=== PATIENT | male | born 1965 | race Caucasian/White ===

== ENCOUNTER 2022-07-28 10:16 | Outpatient (REF) | payer OTHER, SELFPAY ==
--- NOTE | ~2022-07-28 | XR_ITS ---
EXAMINATION: XR WRIST, LEFT CLINICAL INFORMATION: Left wrist pain COMPARISON: None TECHNIQUE: Four views of the left wrist. FINDINGS: No fracture or dislocation. Alignment is maintained. Joint spaces are maintained. Small marginal osteophytes of the first carpometacarpal joint. The soft tissues appear unremarkable. XR/XR wrist LT min 3V IMPRESSION: Mild degenerative change at the first carpometacarpal joint.
== END 2022-07-28 10:17 | disposition home or self-care (01) ==
LOC: HO.HMGCX 10:16
PROVIDERS: Visit Provider Physician Assistant
DX: M25.532 Pain in left wrist (principal)
CPT/HCPCS: 73110

== ENCOUNTER → 2022-08-02 08:27 | Outpatient (BNVA) | payer OTHER, SELFPAY | PROVIDERS: PCP Internal Medicine; Visit Provider Physician Assistant | DX: S60.012A Contusion of left thumb without damage to nail, initial encounter (principal) | CPT/HCPCS: 29085 ==

== ENCOUNTER 2022-08-16 16:52 | Outpatient (REF) | payer OTHER, SELFPAY ==
--- NOTE | ~2022-08-16 | XR_ITS ---
EXAMINATION: XR HAND, LEFT CLINICAL INFORMATION: Left hand pain COMPARISON: 07/28/2022 TECHNIQUE: PA, lateral, and oblique views of the left hand. 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 Otherwise unremarkable. No fracture. No change. 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
== END 2022-08-16 16:53 | disposition home or self-care (01) ==
LOC: HO.HOSX 16:52
PROVIDERS: Visit Provider Physician Assistant
DX: S60.012D Contusion of left thumb without damage to nail, subsequent encounter (principal); M79.642 Pain in left hand; X58.XXXD Exposure to other specified factors, subsequent encounter
CPT/HCPCS: 73130

== ENCOUNTER 2022-10-10 06:09 | Outpatient (REF) | payer OTHER, SELFPAY ==
[2022-10-10 07:35] LABS: Hematocrit 50.7 % (42.0-52.0); Hemoglobin 16.8 g/dl (14.0-18.0); Mean Corpuscular HGB Conc 33.1 g/dl (31.0-36.0); Mean Corpuscular Hemoglobin 29.9 pg (27.0-33.0); Mean Corpuscular Volume 90.2 fL (80.0-98.0); Mean Platelet Volume 11.8 fL (9.4-12.4); Platelet Count 147 X10*3/uL (160-400); Red Blood Count 5.62 X10*6/uL (4.60-5.80); Red Cell Distribution Width 12.7 % (11.0-16.0)
[2022-10-10 08:24] LABS: Alanine Aminotransferase 29 U/L (0-40); Albumin Level 4.1 g/dL (3.5-5.0); Alkaline Phosphatase 92 U/L (39-117); Anion Gap 12 (12-20); Aspartate Amino Transferase 21 U/L (5-37); Blood Urea Nitrogen 16 mg/dL (9-16); Calcium 9.2 mg/dL (8.4-10.2); Carbon Dioxide 31 mmol/L (22-29); Chloride 107 mmol/L (96-108); Cholesterol 156 mg/dL; Estimated Glomerular Filt Rate > 60; Glucose Random 93 mg/dL (60-115); HDL Cholesterol 31 mg/dL; LDL Cholesterol Calculated 103 mg/dl; Potassium 4.5 mmol/L (3.3-5.1); Sodium 145 mmol/L (135-145); Total Protein 6.5 g/dL (6.5-8.0); Triglycerides 112 mg/dL
[2022-10-10 08:31] LABS: Atypical Lymph Absolute Manual 0.5 x10*3/uL; Atypical Lymphs Percent Manual 2 % (0-6); Band Neutrophils Percent 1 % (3-5); Eosinophils Absolute Manual 0.9 X10*3/uL (0.0-0.4); Eosinophils Percent Manual 4 % (0-4); Lymphocytes Absolute Manual 19.3 X10*3/uL (1.2-4.9); Lymphocytes Percent Manual 84 % (20-40); Monocytes Absolute Manual 0.2 X10*3/uL (0.1-1.2); Monocytes Percent Manual 1 % (2-11); Neutrophils Absolute Manual 2.1 X10*3/uL (2.0-8.3); Neutrophils Percent Manual 8 % (45-73)
[2022-10-10 08:32] LABS: RBC Morphology NORMAL
[2022-10-10 08:33] LABS: Platelet Estimate SLIGHTLY DECREASED (NORMAL); Platelet Morphology Comment NORMAL
[2022-10-10 08:36] LABS: Smudge Cells PRESENT
[2022-10-10 08:44] LABS: Folate 7.4 ng/mL (> or = 4.0); Free T4 (Free Thyroxine) 0.92 ng/dL (0.71-1.85); Prostate Specific Antigen Scr 2.53 ng/mL (<0.05-4.0); Thyroid Stimulating Hormone 1.28 uIU/mL (0.32-4.0); Vitamin B12 812 pg/mL (200-900)
[2022-10-10 09:14] LABS: Appearance Urine Clear; Color Urine Yellow; Glucose Urine UA Negative (Negative); Leukocyte Esterase Urine Negative (Negative); Nitrite Urine Negative (Negative); Specific Gravity - Urine 1.025 (1.005-1.025); Urine Blood Negative (Negative); Urine Ketones Negative (Negative); Urine Protein Negative (Neg-Trace)
[2022-10-10 09:19] LABS: Bacteria Urine None Seen (None Seen); Hyaline Casts Urine 0-2 /LPF (0-2); RBC Urine 0-2 /HPF (0-2); Squamous Epithelial Cell Urine 0-2 /HPF (0-2); WBC Urine 0-5 /HPF (0-5)
== END 2022-10-10 06:10 | disposition home or self-care (01) ==
LOC: HO.LAB 06:09
PROVIDERS: PCP Internal Medicine; Visit Provider Internal Medicine
DX: Z12.5 Encounter for screening for malignant neoplasm of prostate (principal); N20.0 Calculus of kidney; E78.00 Pure hypercholesterolemia, unspecified; R35.0 Frequency of micturition
CPT/HCPCS: 36415; 80053; 80061; 81001; 82607; 82746; 84153; 84439; 84443; 85007; 85025; 85027

== ENCOUNTER 2022-10-19 13:51 | Outpatient (REF) | payer OTHER, SELFPAY ==
--- NOTE | ~2022-10-19 | US_ITS ---
EXAMINATION: US SOFT TISSUE NECK CLINICAL INFORMATION: Localized swelling, mass and lump. COMPARISON: None available. TECHNIQUE: Limited ultrasound imaging through the right lateral neck was performed where patient feels a lump. FINDINGS: Limited ultrasound imaging through the right neck where patient feels a lump is a hypoechoic oval lesion measuring 1.12 x 0.54 x 0.93 cm and volume 0.3 cm. It has mild increased vascularity and most likely represents a lymph node. There are additional multiple small lymph nodes seen in the right neck level 2 and level 4. Limited imaging through the palpable lump of left neck reveals a hyperechoic lesion measuring 1.2 x 0.7 x 1.1 cm with some increased vascularity. It is most likely a lymph node. Also visualized are multiple small chain of lymph nodes in level 2 and level 4. US/US soft tiss head and/or neck IMPRESSION: 1. Palpable lump right neck is most likely lymph node with increased vascularity. The size of the lymph node is not indicative for biopsy at this time. There are also multiple lymph nodes seen in the right and the left neck level 2 through level 4. 2. If clinically indicated further evaluation of the neck soft tissues and nodes may be performed with CT soft tissue neck with intravenous contrast.
--- NOTE | ~2022-10-19 | US_ITS ---
EXAMINATION: US RETROPERITONEAL COMPLETE (RENAL) CLINICAL INFORMATION: Calculus of kidney. COMPARISON: None available. TECHNIQUE: Real-time imaging of the kidneys and bladder. FINDINGS: RIGHT KIDNEY: 11.5 x 7.0 x 5.9 cm (SAG x AP x TRV). The kidney is normal in size, contour, and echogenicity. Renal cortical thickness is normal. No hydronephrosis. 1.7 cm benign-appearing cyst. Lower pole 2 mm nonobstructing stone. LEFT KIDNEY: 12.2 x 6.9 x 5.8 cm (SAG x AP x TRV). The kidney is normal in size, contour, and echogenicity. Renal cortical thickness is normal. No hydronephrosis. Nonobstructing stones measuring up to 4 mm. Cysts with peripheral calcifications measuring up to 1.9 cm, almost certainly benign. BLADDER: Well distended and normal. Bilateral ureteral jets are demonstrated. Prevoid bladder volume is 209 mL. Postvoid bladder volume is 127 mL. ADDITIONAL FINDINGS: Prostate is markedly enlarged measuring approximately 38 mL. US/US retroperitoneal comp IMPRESSION: * Bilateral nonobstructing nephrolithiasis. * Left renal cysts with peripheral calcifications measuring up to 1.9 cm, almost certainly benign. * Prostatomegaly with large postvoid residual of 127 mL.
== END 2022-10-19 13:52 | disposition home or self-care (01) ==
LOC: HO.US 13:51
PROVIDERS: PCP Internal Medicine; Visit Provider Internal Medicine
DX: N20.0 Calculus of kidney (principal); R22.1 Localized swelling, mass and lump, neck; R35.0 Frequency of micturition
CPT/HCPCS: 76536; 76770

== ENCOUNTER → 2022-11-20 09:38 | Outpatient (BNVA) | payer OTHER, SELFPAY | PROVIDERS: PCP Internal Medicine; Visit Provider Nurse Practitioner Family ==

== ENCOUNTER → 2022-11-30 10:11 | Outpatient (BNV) | payer BC, OTHER, SELFPAY | PROVIDERS: PCP Internal Medicine; Visit Provider Internal Medicine Medical Oncology | DX: D72.829 Elevated white blood cell count, unspecified (principal) | CPT/HCPCS: 99204; 99213; 99214 ==

== ENCOUNTER → 2022-12-18 09:06 | Outpatient (BNVA) | payer OTHER, SELFPAY | PROVIDERS: PCP Internal Medicine; Visit Provider Urology ==

== ENCOUNTER 2023-01-29 13:35 | Outpatient (REF) | payer OTHER, SELFPAY ==
--- NOTE | ~2023-01-29 | CT_ITS ---
EXAMINATION: CT CHEST WITH CONTRAST CLINICAL INFORMATION: Chronic lymphocytic leukemia COMPARISON: None available. TECHNIQUE: Multidetector volumetric CT imaging of the chest was obtained after the administration of 80 mL of Omnipaque 350 intravenous contrast without immediate adverse reactions. Axial MIP volume rendering provided. Sagittal and coronal reformatted images were obtained. This CT examination was performed using dose optimization techniques as appropriate, variously including the following: *Automated exposure control *Adjustment of mA and/or kV according to patient size (this includes techniques or standardized protocols for targeted exams where dose is matched to indication/reason for exam; i.e. extremities or head) *Use of iterative reconstruction technique DLP: 1044 mGy-cm for both the CT chest and CT neck exams reported separately FINDINGS: LUNGS: Few scattered calcified pulmonary granulomas. Few scattered noncalcified solid pulmonary micronodules for example in the right upper lobe, 5:249. Few small juxta fissural solid nodules for example along the left major fissure, 5:255 measuring up to 3 mm which could potentially reflect intrapulmonary lymph nodes morphologically however given history of malignancy warrants continued attention on follow-up imaging. PLEURA: No pleural effusion. MEDIASTINUM: Question of a possible right lower lobe subsegmental pulmonary embolism which could be confirmed with a dedicated CT PE protocol. No cardiomegaly. No elevation of the RV/LV ratio. Aorta and pulmonary artery are normal in caliber. Multiple subcentimeter short axis mediastinal nodes measuring up to 0.8 cm short axis in a subcarinal node. No hilar lymphadenopathy. CORONARY ARTERY CALCIFICATION: Coronary artery calcification is present. CHEST WALL/AXILLA: Bilateral axillary and retropectoral lymphadenopathy measuring up to 1.4 cm short axis in a left retropectoral. UPPER ABDOMEN: Mildly enlarged sid hepatic nodes measuring up to 1.2 cm short axis. Few subcentimeter short axis cysts gastrohepatic nodes measuring up to 0.6 cm, not pathologically enlarged. OSSEOUS STRUCTURES: Unremarkable. CT/CT chest w IV con IMPRESSION: * Question of a possible right lower lobe subsegmental pulmonary embolism. Recommend confirmation with a dedicated CT PE protocol. No elevation of the RV/LV ratio to suggest right heart strain. * Bilateral axillary and retropectoral lymphadenopathy and sid hepatic lymphadenopathy measuring up to 1.4 cm short axis in a left retropectoral node. * Few indeterminate solid pulmonary nodules and micronodules measuring 3 mm or less. Given history of malignancy recommend continued imaging surveillance per clinical oncologic recommendations. These critical results were discussed with Francie Dee MD by telephone at 02/01/2023 2:02 PM and it was ascertained that the content and urgency of the report was understood at the time of direct communication.
--- NOTE | ~2023-01-29 | CT_ITS ---
EXAMINATION: CT SOFT TISSUE NECK WITH CONTRAST CLINICAL INFORMATION: Bilateral cervical lymphadenopathy. History of chronic lymphocytic leukemia. COMPARISON: Neck ultrasound from 10/19/2022. TECHNIQUE: Multidetector helical imaging was performed in the axial plane following the administration of 80 mL of Omnipaque 350 intravenous contrast. Multiple axial reformats and coronal/sagittal reconstructions were created the technologist workstation for review. This CT examination was performed using dose optimization techniques as appropriate, variously including the following: *Automated exposure control. *Adjustment of mA and/or kV according to patient size (this includes techniques or standardized protocols for targeted exams where dose is matched to indication/reason for exam; i.e. extremities or head). *Use of iterative reconstruction technique. DLP: 415 mGy-cm FINDINGS: Moderate, bulky, rounded lymphadenopathy throughout the bilateral cervical chains, measuring up to 2.3 cm in levels Ib, 2.5 cm in levels IIa, 1.7 cm in levels III, 1.5 cm in levels IV, and 1.6 cm in levels V. Partially visualized axillary lymphadenopathy measures up to 1 cm in short axis (better characterized on concurrent CT of the chest. No significant cutaneous thickening or subcutaneous inflammation. No discrete fluid collection within the deep tissues of the neck. The premaxillary, retromaxillary, pterygopalatine fossa, orbital apical, parapharyngeal, and prelaryngeal adipose tissue is maintained. Normal appearance of the parotid, submandibular, and thyroid glands. Normal mucosal contours of the pharynx and larynx without abnormal enhancement. Normal appearance of the hyoid bone, thyroid cartilage, or cartilaginous trachea. The airways remains widely patent. No radiopaque foreign bodies. The atlantooccipital and atlantoaxial articulations remain well aligned. There is anatomic alignment of the vertebral bodies and posterior elements. No evidence of acute fracture or subluxation of the cervical spine. The vertebral body heights are maintained. Mild multilevel degenerative spondyloarthropathy of the cervical spine. No evidence of epidural collection. There is no prevertebral soft tissue swelling. Retropharyngeal course of the left carotid artery. Otherwise, normal opacification of the cervical arterial and venous structures. The visualized portion of the skull base is without significant abnormalities. Mild to moderate polypoid mucosal thickening of the paranasal sinuses. Multifocal odontogenic enamel erosions. Periapical lucencies associated with the maxillary canines bilaterally. The mastoid air cells and middle ear cavities are clear. No demonstrated significant periapical odontogenic disease. CT Upper Chest: The visualized lung apices and upper mediastinum are within normal limits. CT/CT soft tissue neck w IV con IMPRESSION: 1. Moderate, bulky, rounded lymphadenopathy throughout the bilateral cervical chains. Partially visualized axillary lymphadenopathy (better characterized on concurrent CT of the chest). Findings are in keeping with a reported underlying lymphoproliferative disorder. 2. No demonstrated primary lesion or collection within the soft tissues of the neck. 3. Moderate multifocal odontogenic disease.
[2023-01-29] MEDS: iohexoL 350 MG/ML 100 ML INFUS..BTL 80 ML IV (14:21)
== END 2023-01-29 13:36 | disposition home or self-care (01) ==
LOC: HO.CT 13:35
PROVIDERS: PCP Internal Medicine; Visit Provider Internal Medicine Medical Oncology
DX: C91.10 Chronic lymphocytic leukemia of B-cell type not having achieved remission (principal)
CPT/HCPCS: 70491; 71260; Q9967

== ENCOUNTER 2023-01-31 12:16 | Outpatient (AMB) | payer OTHER, SELFPAY ==
[2023-01-31 12:18] VITALS: BP 132/70; PULSE 58; O2SAT 99; BMI 31.7
--- NOTE | 2023-01-31 12:18 | MHC.PC.OV ---
Vital Signs 01/31/23 12:18 Height 6 ft 3 in Weight 254 lb BMI 31.7 BP 132/70 Blood Pressure Location Lt brachial Position Sitting Pulse 58 Pulse Source Pulse Oximeter Pulse Oximetry (%) 99 Oxygen Delivery Method Room Air Intake Visit Reasons: Annual Exam Allergies No Known Allergies Allergy (Verified 01/31/23 12:19) Medication List - Last Reconciled 01/31/23 by Mylene Mari MD bisacodyl (Dulcolax (bisacodyl)) 10 mg (2 x 5 mg) PO ONCE 1 day blood pressure monitor (Blood Pressure Kit) As directed polyethylene glycol 3350 (Miralax) 238 grams PO ONCE tamsulosin 0.4 mg PO BEDTIME Tobacco use date assessed: 11/20/22 Dental Screening Dental Screen Date: 01/31/23 Did you have a dental visit in the last 12 months?: Yes Did you have a dental problem in the last 6 months where you did not have access to dental care?: No Was dental information given to patient?: Patient has dentist HPI Annual Exam HPI Details 57 year-old obese male with nephrolithiasis BPH coming in for physical exam last seen in October 2021 having elevated blood pressure left side of the neck mass. Patient was noted to have leukocytosis and was referred to hematology oncology diagnosis consistent with CLL CT neck requested. Patient is also being followed up by Urology taking tamsulosin [facility] Medical History (Updated 01/31/23 @ 12:41 by Mylene Mari MD) BPH (benign prostatic hyperplasia) Frequency of micturition Kidney stones Leucocytosis Mass of left side of neck Obesity (BMI 30-39.9) Peripheral vascular disease Renal calculus, right Right shoulder pain Thrombocytopenia Surgical History History of lumbar surgery Hx of tonsillectomy Family History Mother Dementia Father Parkinson disease Prostate cancer Brother No problems noted. Brother Rectal cancer Sister No problems noted. Daughter No problems noted. Son No problems noted. Social History (Updated 01/31/23 @ 12:47 by Mylene Mari MD) Household Members: Spouse Housing: House Alcohol intake: current Patient Tobacco Use Status: Never used Tobacco e-Cigarette/Vaping Use: Never Used Second Hand Smoke Exposure: No service: No Current occupational status: employed Current occupation: auto, referee, rock climbing, rt hand Cognitive needs: No Hearing needs: No Vision needs: Yes Questionnaire PHQ-9 Over the last 2 weeks, how often have you been bothered by any of the following problems? 1. Little interest or pleasure in doing things: not at all 2. Feeling down, depressed, or hopeless: not at all 3. Trouble falling or staying asleep, or sleeping too much: not at all 4. Feeling tired or having little energy: not at all 5. Poor appetite or overeating: not at all 6. Feeling bad about yourself - or that you are a failure or have let yourself or your family down: not at all 7. Trouble concentrating on things, such as reading the newspaper or watching television: not at all 8. Moving or speaking so slowly that other people could have noticed. Or the opposite - being so fidgety or restless that you have been moving around a lot more than usual: not at all 9. Thoughts that you would be better off or of hurting yourself in some way: not at all Total score: 0 Depression Screening Interpretation: Negative Source: Developed by Drs. Jacobo Welch, Tiana Mojica, Robin Yang and colleagues, with an educational traci from [employer]. Thrive Questionnaire Date Thrive assessed: 10/09/22 AUDIT C Alcohol Use Questionnaire (AUDIT-C) 1. How often do you have a drink containing alcohol?: Monthly or less 2. How many drinks containing alcohol do you have on a typical day when you are drinking?: 1 or 2 3. How often do you have six or more drinks on one occasion?: Never Total Score: 1 HELENE-7 AMB Questionnaire HELENE-7 Date HELENE - 7 assessed: 10/09/22 Source: Developed by Drs. Jacobo Welch, Tiana Mojica, Robin Yang and colleagues, with an educational traci from [employer]. Review of Systems Const Denies poor appetite and Denies weakness Eyes Denies no additional complaints ENT Reports Normal hearing present, Denies dizziness, Denies nasal congestion, Denies tinnitus and Denies sore throat Card Denies chest pain, Denies syncope, Denies rapid heart rate and Denies dyspnea Resp Denies cough and Denies dyspnea GI Denies change in stool character, Reports constipation, Denies diarrhea, Denies nausea and Denies vomiting Denies dysuria and Denies urinary frequency Neuro Reports Normal hearing present, Denies confusion, Denies dizziness, Denies syncope and Denies weakness Psych Denies confusion Physical exam (Primary Care) Vital Signs: Last Vital Signs Pulse 58 01/31/23 12:18 BP 132/70 01/31/23 12:18 Pulse Ox 99 01/31/23 12:18 Oxygen Delivery Method Room Air 01/31/23 12:18 BMI result Body Mass Index 31.7 Tobacco/Smoking Status: Tobacco use Status Tobacco use date assessed 11/20/22 01/31/23 12:19 Patient Tobacco Use Status Never used Tobacco 01/31/23 12:19 e-Cigarette/Vaping Use Never Used 01/31/23 12:19 PHQ-9: PHQ-9 Score PHQ-9: Total score 0 01/31/23 12:19 Depression Screening Interpretation: Negative Thrive Assessment: Date of Thrive Assessment Date Thrive assessed 10/09/22 01/31/23 12:19 Const General: No confusion Orientation/consciousness: No confusion HENMT Other: anterior R side of neck mass- LN enlargement. L eye stye Head: Yes normocephalic Ears: external ears normal and TM's normal bilaterally Face and sinus: Yes normal facial exam Mouth: moist mucous membranes Throat: Yes tonsils normal Eyes Conjunctivae: conjunctivae normal Pupils: Equal, round and reactive pupils present and Pupil accommodation reflex normal Direct Ophthalmoscopy: normal light reflex Neck Neck: No lymphadenopathy Thyroid: Thyroid normal Chest Chest palpation & inspection: normal inspection of the chest Resp Effort & Inspection: normal respiratory effort and no audible wheezes Auscultation: clear to auscultation bilaterally, no crackles, no wheezes and lung sounds not diminished Cardio Rate: regular rate Rhythm: regular rhythm Peripheral pulses: radial pulses present and dorsalis pedis present GI Other: colon test end of the month Palpation (GI): no masses Auscultation: normal bowel sounds and normoactive bowel sounds Rectal Exam - Male: Yes deferred Male General Exam: Yes normal external exam Skin General skin exam: no rashes or lesions noted Rashes: no rashes Neuro General: No confusion Cranial nerves: Yes Equal, round and reactive pupils present and Yes Normal hearing present Cognition (Neuro): normal cognition Gait exam (Neuro): Normal gait present Motor exam (neuro): 5/5 motor strength present throughout Deep tendon reflexes (DTR's): Right brachioradialis reflex intensity grade: 2+, Left brachioradialis reflex intensity grade: 2+, Right patellar reflex intensity grade: 2+ and Left patellar reflex intensity grade: 2+ Extrem General: No edema Assessment and Plan Assessment & Plan (1) Annual physical exam: Code(s): Z00.00 - Encounter for general adult medical examination without abnormal findings (2) CLL (chronic lymphocytic leukemia): Comment: December 2022 Code(s): C91.10 - Chronic lymphocytic leukemia of B-cell type not having achieved remission Plan: Patient is followed up by hematology oncology and being worked up for staging. bone marrow plan (3) BPH loc w urin obs/LUTS: Code(s): N40.1 - Benign prostatic hyperplasia with lower urinary tract symptoms Plan: Patient is followed up by Urology and is on tamsulosin (4) Bilateral renal stones: Comment: Bilateral nonobstructing nephrolithiasis. * Left renal cysts with peripheral calcifications measuring up to 1.9 cm, almost certainly benign. * Prostatomegaly with large postvoid residual of 127 mL. October 2022 Code(s): N20.0 - Calculus of kidney Plan: Keep well hydrated (5) Family history of rectal cancer: Code(s): Z80.0 - Family history of malignant neoplasm of digestive organs Plan: Discussion about colonoscopy. scheduled end of the month (6) Blood pressure elevated without history of HTN: Code(s): R03.0 - Elevated blood-pressure reading, without diagnosis of hypertension Plan: Blood pressure is better (7) Obesity (BMI 30.0-34.9): Code(s): E66.9 - Obesity, unspecified Plan: Diet and exercise Medications: Changed From tamsulosin 0.4 mg PO BEDTIME 30 caps 0RF N40.1 - Benign prostatic hyperplasia with lower urinary tract symptoms To tamsulosin 0.4 mg PO BEDTIME 90 days 90 caps 3RF N40.1 - Benign prostatic hyperplasia with lower urinary tract symptoms Coding Level of Care Code Est Pt Prev Care 40-64y([id number]) Diagnoses Annual physical exam Z00.00 CLL (chronic lymphocytic leukemia) C91.10 BPH loc w urin obs/LUTS N40.1 Bilateral renal stones N20.0 Family history of rectal cancer Z80.0 Blood pressure elevated without history of HTN R03.0 Obesity (BMI 30.0-34.9) E66.9
== END 2023-01-31 13:35 | disposition home or self-care (01) ==
PROVIDERS: PCP Internal Medicine; Visit Provider Internal Medicine
DX: Z00.00 Encounter for general adult medical examination without abnormal findings (principal); C91.10 Chronic lymphocytic leukemia of B-cell type not having achieved remission; Z80.0 Family history of malignant neoplasm of digestive organs; N40.1 Benign prostatic hyperplasia with lower urinary tract symptoms; N20.0 Calculus of kidney; R03.0 Elevated blood-pressure reading, without diagnosis of hypertension; E66.9 Obesity, unspecified
CPT/HCPCS: 99396

== ENCOUNTER 2023-02-01 14:35 | Emergency (ER) | payer OTHER, SELFPAY ==
--- NOTE | ~2023-02-01 | CT_ITS ---
EXAMINATION: CT ANGIOGRAM OF THE CHEST WITH AND WITHOUT CONTRAST (CT PULMONARY ANGIOGRAM FOR PE) CLINICAL INFORMATION: Reason for Exam + PE on CT chest without contrast Sunday COMPARISON: CT chest with IV contrast 01/29/2023 TECHNIQUE: Prior to contrast administration, noncontrast localization images were obtained. Subsequently, multidetector volumetric imaging was performed from the thoracic inlet to below the diaphragms following the administration of 80 mL Omnipaque 350 intravenous contrast. No contrast reaction reported Sagittal, coronal, and MIP oblique sagittal reformatted images were obtained on the CT workstation, uploaded to PACS, and reviewed. This CT examination was performed using dose optimization techniques as appropriate, variously including the following: *Automated exposure control *Adjustment of mA and/or kV according to patient size (this includes techniques or standardized protocols for targeted exams where dose is matched to indication/reason for exam; i.e. extremities or head) *Use of iterative reconstruction technique Total exam dose-length product 367 mGy-cm FINDINGS: QUALITY OF STUDY/CONTRAST BOLUS: Satisfactory. PULMONARY ARTERIES: There is no evidence of pulmonary emboli. Especially there is no filling defects seen in the right lower lobe pulmonary artery branch. THORACIC AORTA: No aneurysm. LUNG: There is no focal consolidation or groundglass density. There are small noncalcified pulmonary micronodules in the right upper lobe and along the left major fissure. These are stable. No new nodules are seen. PLEURA: No pleural effusion or pneumothorax. MEDIASTINUM: Normal heart size. No pericardial effusion. No hilar or mediastinal lymphadenopathy. No evidence of septal bowing or right heart strain. CORONARY ARTERY CALCIFICATION: None visualized on this study. CHEST WALL/AXILLA: There are multiple bilateral abnormal axillary and retropectoral lymph nodes. Largest right axillary lymph node measures 1.3 cm on axial image 14/5 and left axillary lymph node measures 1.9 cm on axial image 16/5. OSSEOUS STRUCTURES: No aggressive lytic or sclerotic process seen. UPPER ABDOMEN: Visualized liver, spleen, pancreas and bilateral adrenal glands unremarkable. No reflux of contrast into the hepatic veins to suggest elevated right heart pressures. CT/CT angio chest PE protocol IMPRESSION: No evidence of PE. Stable bilateral small micronodules. Abnormal bilateral axillary lymphadenopathy concordant with history of chronic lymphocytic leukemia. VTE: negative
--- NOTE | 2023-02-01 14:37 | ED_ITS ---
HPI - General Adult General Chief complaint: General Medical Stated complaint: lab recheck Time Seen by Provider: 02/01/23 16:28 Source: patient Mode of arrival: ambulatory Limitations: no limitations History of Present Illness HPI narrative: PE the history of chronic lymphocytic leukemia had chest CT on 01/29 for CLL was read as possible PE oncologist received a report today and send the patient for CTA chest to rule out PE patient denied any shortness of breath no chest pain feels back to normal. Patient denies any history of PE in the past or high risk for DVT Related Data Previous Rx's Medication Instructions Recorded blood pressure monitor (Blood #1 ea 10/09/22 Pressure Kit) bisacodyl 5 mg tablet,delayed 10 mg PO ONCE 1 day #2 tabs 11/20/22 release (Dulcolax (bisacodyl)) polyethylene glycol 3350 17 238 g PO ONCE #238 grams 11/20/22 gram/dose oral powder (Miralax) tamsulosin 0.4 mg capsule 0.4 mg PO BEDTIME 90 days #90 caps 01/31/23 Allergies Allergy/AdvReac Type Severity Reaction Status Date / Time No Known Allergies Allergy Verified 02/01/23 14:38 Review of Systems Review of Systems: Yes all other systems are reviewed and are negative PMFSH Past Medical History Medical History BPH (benign prostatic hyperplasia) Frequency of micturition Kidney stones Leucocytosis Mass of left side of neck Obesity (BMI 30-39.9) Peripheral vascular disease Renal calculus, right Right shoulder pain Thrombocytopenia Surgical History History of lumbar surgery Hx of tonsillectomy Family History Family History Mother Dementia Father Parkinson disease Prostate cancer Brother No problems noted. Brother Rectal cancer Sister No problems noted. Daughter No problems noted. Son No problems noted. Social History Social History Household Members: Spouse Housing: House Alcohol intake: never Patient Tobacco Use Status: Never used Tobacco e-Cigarette/Vaping Use: Never Used Second Hand Smoke Exposure: No service: No Current occupational status: employed Current occupation: auto, referee, rock climbing, rt hand Cognitive needs: No Hearing needs: No Vision needs: Yes Physical Exam ED Vital Signs: Vital Signs - 24 hr 02/01/23 14:38 02/01/23 19:12 Temperature 98 F 98.3 F Pulse Rate 83 63 Respiratory Rate 19 17 Blood Pressure 156/73 H 126/73 Pulse Oximetry 98 94 Oxygen Delivery Method Room Air Room Air BMI result Body Mass Index 31.6 Appearance: Alert. Oriented X3. No acute distress. Eyes: PERRLA, No Nystagmus ENT: Pharynx normal. Oral Mucosa moist Neck: Normal inspection. Neck supple. CVS: Normal heart rate and rhythm. Pulses normal. Respiratory: No respiratory distress. Equal air entry bilateral, no wh eezing/rales/rhonchi Abdomen: Soft and nontender. Bowel sounds are present, no mass palpable, no CVA tenderness Skin: Skin warm and dry. Normal skin color. Normal skin turgor. Extremities: No lower extremity edema. No calf tenderness Neuro: Oriented X 3. No motor deficit. No sensory deficit.No cerebellar signs , cranial nerves II-XII intact Course Course Course Narrative: This is a rapid medical exam: Additional HPI, ROS, PE not included below will be deferred to primary provider. Patient referred to the ED by Dr. Dee. Had a CT chest on Sunday for evaluation of enlarged lymph nodes, was being worked up for CLL. Provider received CT read today which showed + PE, but CTA chest was recommended. He denies any chest pain or shortness of breath, calf pain or swelling. Plan: labs, CTA chest Medications Administered Discontinued Medications Generic Name Dose Route Start Last Admin Trade Name Bhavesh PRN Reason Stop Dose Admin Iohexol 100 ml 02/01/23 16:52 02/01/23 16:53 Iohexol 350 Mg/Ml 100 Ml Infus..Btl IV 02/01/23 16:53 65 ml ONCE ONE Administration Medical Decision Making Medical Decision Making [facility] Narrative: Patient with CLL with stable labs and vitals CT chest negative for PE discharge patient advised to follow with oncology, patient is symptomatic as such Lab Data [facility] Lab Attestation statement: I reviewed the patient's lab results. 02/01/23 15:30 02/01/23 15:30 Labs: Lab Results 02/01/23 02/01/23 02/01/23 Range/Units 15:30 15:30 15:30 WBC 28.1 H (4.8-10.8) X10*3/uL RBC 5.40 (4.60-5.80) X10*6/uL Hgb 15.8 (14.0-18.0) g/dl Hct 47.8 (42.0-52.0) % MCV 88.5 (80.0-98.0) fL MCH 29.3 (27.0-33.0) pg MCHC 33.1 (31.0-36.0) g/dl RDW 12.7 (11.0-16.0) % Plt Count 120 L (160-400) X10*3/uL MPV 11.7 (9.4-12.4) fL Immature Gran % (Auto) Cancelled Neut % (Auto) Cancelled Lymph % (Auto) Cancelled [facility] % (Auto) Cancelled Eos % (Auto) Cancelled Baso % (Auto) Cancelled Lymph # (Auto) Cancelled [facility] # (Auto) Cancelled Eos # (Auto) Cancelled Baso # (Auto) Cancelled Abs Immat Gran (auto) Cancelled Absolute Neuts (auto) Cancelled Absolute Nucleated RBC 0.020 H (0.0-0.012) X10*3/uL Nucleated RBC % (auto) 0.1 (0.0-0.2) /100WBC Neutrophils % (Manual) 22 L (45-73) % Band Neutrophils % 2 L (3-5) % Lymphocytes % (Manual) 73 H (20-40) % Monocytes % (Manual) 3 (2-11) % Abs Neuts (Manual) 6.7 (2.0-8.3) X10*3/uL Lymphocytes # (Manual) 20.5 H (1.2-4.9) X10*3/uL Monocytes # (Manual) 0.8 (0.1-1.2) X10*3/uL Platelet Estimate SLIGHTLY DECREASED (NORMAL) Plt Morphology Comment NORMAL RBC Morphology NORMAL Smear Tech's Comments VERIFIED PT 11.4 (11.1-13.3) SEC INR 0.9 (0.9-1.1) APTT 32.1 (26.0-36.4) SEC Sodium 144 (135-145) mmol/L Potassium 4.5 (3.3-5.1) mmol/L Chloride 111 H (96-108) mmol/L Carbon Dioxide 23 (22-29) mmol/L Anion Gap 15 (12-20) BUN 17 H (9-16) mg/dL Creatinine 0.89 (0.5-1.4) mg/dL Estim Creat Clear Calc 123.6 Estimated GFR > 60 Random Glucose 97 (60-115) mg/dL Calcium 9.7 D (8.4-10.2) mg/dL Total Bilirubin 0.8 (0.0-1.0) mg/dL AST 23 (5-37) U/L ALT 26 (0-40) U/L Alkaline Phosphatase 82 (39-117) U/L Total Protein 6.9 (6.5-8.0) g/dL Albumin 4.2 (3.5-5.0) g/dL Radiology Impression Discussion of test interpretation with radiology: I have reviewed the radi ologist's reading. Radiologist Impression: RDER #: [id number] CT/CT angio chest PE protocol IMPRESSION: No evidence of PE. ? Stable bilateral small micronodules. ? Abnormal bilateral axillary lymphadenopathy concordant with history of chronic lymphocytic? leukemia. ? VTE: negative Discharge Plan Discharge Clinical Impression: CLL (chronic lymphocytic leukemia) Patient Disposition: Home, Self-Care Instructions: Chronic Lymphocytic Leukemia (DC) Additional Instructions: your CT scan is negative for blood clots follow-up with your oncologist Prescriptions: No Action (DME) blood pressure monitor [Blood Pressure Kit] Kit See Rx Instructions .ROUTE .MEDSUPPLY Qty: 1 0RF Rx Instructions: As directed tamsulosin 0.4 mg capsule 0.4 mg PO BEDTIME 90 Days Qty: 90 3RF bisacodyl [Dulcolax (bisacodyl)] 5 mg tablet,delayed release (DR/EC) 10 mg PO ONCE 1 Days Qty: 2 0RF Rx Instructions: take 2 tabs at noon the day before your colonoscopy polyethylene glycol 3350 [Miralax] 17 gram/dose powder 238 g PO ONCE Qty: 238 0RF Rx Instructions: As directed by gastroenterology department at [facility] Interventions: ED Discharge Assessment Last Done: 02/01/23 19:14 Discharge Date/Time: 02/01/23 19:14
[2023-02-01 14:38] VITALS: BP 156/73; PULSE 83; RESP 19; TEMP 36.6; O2SAT 98; BMI 31.6
--- NOTE | 2023-02-01 14:41 | ECG_ITS ---
Test Reason : + PE on CT sunday Blood Pressure : / mmHG Vent. Rate : 064 BPM Atrial Rate : 064 BPM P-R Int : 150 ms QRS Dur : 080 ms QT Int : 386 ms P-R-T Axes : 045 -11 025 degrees QTc Int : 398 ms Normal sinus rhythm Normal ECG When compared with ECG of 05-NOV-2014 08:51, No significant change was found Referred By: Margarita Adorno Electronically Signed By:SERA FORMAN
[2023-02-01 15:39] LABS: Hematocrit 47.8 % (42.0-52.0); Hemoglobin 15.8 g/dl (14.0-18.0); Mean Corpuscular HGB Conc 33.1 g/dl (31.0-36.0); Mean Corpuscular Hemoglobin 29.3 pg (27.0-33.0); Mean Corpuscular Volume 88.5 fL (80.0-98.0); Mean Platelet Volume 11.7 fL (9.4-12.4); NRBC Pct Auto 0.1 /100WBC (0.0-0.2); Platelet Count 120 X10*3/uL (160-400); Red Cell Distribution Width 12.7 % (11.0-16.0); White Blood Count 28.1 X10*3/uL (4.8-10.8)
[2023-02-01 15:46] LABS: INTERNATIONAL NORM RATIO 0.9 (0.9-1.1); Prothrombin Time 11.4 SEC (11.1-13.3)
[2023-02-01 15:49] LABS: Partial Thromboplastin Time 32.1 SEC (26.0-36.4)
[2023-02-01 15:55] LABS: Alanine Aminotransferase 26 U/L (0-40); Albumin Level 4.2 g/dL (3.5-5.0); Alkaline Phosphatase 82 U/L (39-117); Anion Gap 15 (12-20); Aspartate Amino Transferase 23 U/L (5-37); Bilirubin Total 0.8 mg/dL (0.0-1.0); Blood Urea Nitrogen 17 mg/dL (9-16); Calcium 9.7 mg/dL (8.4-10.2); Carbon Dioxide 23 mmol/L (22-29); Chloride 111 mmol/L (96-108); Creatinine Clr Calc Pharmacy 123.6; Estimated Glomerular Filt Rate > 60; Glucose Random 97 mg/dL (60-115); Potassium 4.5 mmol/L (3.3-5.1); Sodium 144 mmol/L (135-145); Total Protein 6.9 g/dL (6.5-8.0)
[2023-02-01] MEDS: iohexoL 350 MG/ML 100 ML INFUS..BTL IV (16:53)
[2023-02-01 18:24] LABS: Band Neutrophils Percent 2 % (3-5); Lymphocytes Absolute Manual 20.5 X10*3/uL (1.2-4.9); Lymphocytes Percent Manual 73 % (20-40); Monocytes Absolute Manual 0.8 X10*3/uL (0.1-1.2); Monocytes Percent Manual 3 % (2-11); Neutrophils Absolute Manual 6.7 X10*3/uL (2.0-8.3); Neutrophils Percent Manual 22 % (45-73)
[2023-02-01 18:25] LABS: Platelet Estimate SLIGHTLY DECREASED (NORMAL); RBC Morphology NORMAL
[2023-02-01 18:26] LABS: Platelet Morphology Comment NORMAL
[2023-02-01 19:12] VITALS: BP 126/73; PULSE 63; RESP 17; TEMP 36.8; O2SAT 94
[2023-02-01 19:13] LABS: SLIDE REVIEW VERIFIED
== END 2023-02-01 19:14 | disposition home or self-care (01) ==
PROVIDERS: Registered Nurse Emergency; Emergency Provider Internal Medicine; PCP Internal Medicine
DX: C91.10 Chronic lymphocytic leukemia of B-cell type not having achieved remission (principal); Z79.899 Other long term (current) drug therapy
CPT/HCPCS: 36415; 71275; 80053; 85007; 85025; 85027; 85610; 85730; 93005; 99284; Q9967

== ENCOUNTER → 2023-02-01 14:41 | Outpatient (BNV) | payer OTHER, SELFPAY | PROVIDERS: Emergency Provider Internal Medicine; PCP Internal Medicine; Visit Provider Internal Medicine | DX: R03.0 Elevated blood-pressure reading, without diagnosis of hypertension (principal) | CPT/HCPCS: 93010 ==

== ENCOUNTER 2023-02-13 09:04 | Day surgery (SDC) | payer OTHER, SELFPAY ==
--- NOTE | ~2023-02-13 | CT_ITS ---
PROCEDURE: CT GUIDED BIOPSY CLINICAL INFORMATION: Leukocytosis COMPARISON: None TECHNIQUE: The skin was prepped and draped in the usual fashion overlying the right initial wing. 1% Xylocaine was used for local anesthetic. Under CT guidance a 10-gauge bone biopsy needle was placed into the posterior aspect of the right initial wing. 2 core biopsy specimens as well as a needle bone marrow aspirates were obtained one in a heparinized solution and a second in an EDTA coated syringe. The needle was removed and manual pressure held. The patient tolerated procedure well. This CT examination was performed using dose optimization techniques as appropriate, variously including the following: *Automated exposure control *Adjustment of mA and/or kV according to patient size (this includes techniques or standardized protocols for targeted exams where dose is matched to indication/reason for exam; i.e. extremities or head) *Use of iterative reconstruction technique FINDINGS: No focal abnormalities identified CT/CT biopsy bone marrow IMPRESSION: CT-guided bone biopsy of the right initial wing
[2023-02-13 10:00] VITALS: BMI 31.7
[2023-02-13 11:50] VITALS: BP 132/81; PULSE 59; RESP 20; TEMP 36.6; O2SAT 94
[2023-02-13 12:05] VITALS: BP 104/56; PULSE 59; RESP 18; O2SAT 94
[2023-02-13 12:20] VITALS: BP 104/56; PULSE 59; RESP 18; O2SAT 94
[2023-02-13 12:25] VITALS: BP 106/60; PULSE 60; RESP 18; TEMP 36.9; O2SAT 94
[2023-02-13 14:22] LABS: Bone Marrow SEE SEPARATE REPORT
--- NOTE | 2023-06-05 13:44 | HO.RADPN ---
RADIOLOGY Narrative Narrative: 02/13/2023 Bone marrow biopsy performed under CT guidance due to a history of leukocytosis.
== END 2023-02-13 12:43 | disposition home or self-care (01) ==
PROVIDERS: Internal Medicine Medical Oncology; Pathology Anatomic Pathology & Clinical Pathology; PCP Internal Medicine; Visit Provider Radiology Vascular & Interventional Radiology
DX: C91.10 Chronic lymphocytic leukemia of B-cell type not having achieved remission (principal); D69.6 Thrombocytopenia, unspecified; R59.0 Localized enlarged lymph nodes; Z80.42 Family history of malignant neoplasm of prostate; E66.9 Obesity, unspecified; Z68.32 Body mass index [BMI] 32.0-32.9, adult
CPT/HCPCS: 36415; 38221; 38222; 88184; 88185; 88237; 88264; 88280; 88305; 88311; 88313; 88341; 88342; 88374; 99152; 99153; J1642; J2250; J3010

== ENCOUNTER → 2023-02-13 10:50 | Outpatient (BNV) | payer OTHER, SELFPAY | PROVIDERS: PCP Internal Medicine; Visit Provider Radiology Vascular & Interventional Radiology | DX: D72.829 Elevated white blood cell count, unspecified (principal) | CPT/HCPCS: 38221 ==

== ENCOUNTER 2023-02-20 12:44 | Outpatient (REF) | payer OTHER, SELFPAY ==
--- NOTE | ~2023-02-20 | US_ITS ---
EXAMINATION: US VENOUS ULTRASOUND WITH DOPPLER LOWER EXTREMITY, RIGHT CLINICAL INFORMATION: Right lower extremity edema. COMPARISON: None available. TECHNIQUE: Ultrasound of the deep veins is performed from the hip to the calf with compression sonography and color and pulse Doppler assessment. Spectral analysis with color-flow imaging is performed. FINDINGS: There is normal venous compression and respiratory variation and augmented flow. The visualized common femoral vein, superficial femoral vein, profunda femoral vein, popliteal vein, and the trifurcation region shows no evidence of deep venous thrombosis. No right popliteal cyst. The subcutaneous soft tissues are unremarkable. US/US venous duplex LE RT IMPRESSION: No evidence for deep venous thrombosis in the visualized veins of the right lower extremity.
== END 2023-02-20 12:45 | disposition home or self-care (01) ==
LOC: HO.US 12:44
PROVIDERS: Visit Provider Internal Medicine Medical Oncology
DX: C91.10 Chronic lymphocytic leukemia of B-cell type not having achieved remission (principal); R60.0 Localized edema
CPT/HCPCS: 93971

== ENCOUNTER 2023-02-26 08:23 | Day surgery (SDC) | payer OTHER, SELFPAY ==
[2023-02-22 15:57] VITALS: BMI 31.6
--- NOTE | 2023-02-23 10:53 | P.CONAN_ITS ---
Documented by User: Soco Leung NP 02/23/23 10:58 HPI - Anesthesia Eval Consult details Narrative: 57yo M for Colonoscopy Recent dx of CLL. ? Started oral chemo s/p bone marrow bx with CS 02/13/23 [facility] Active Problems Active Problems: All Active Problems (Updated 02/04/23 @ 12:43 by Francie Dee MD) Annual physical exam (Acute) CLL (chronic lymphocytic leukemia) (Acute) BPH loc w urin obs/LUTS (Acute) Bilateral renal stones (Acute) Family history of rectal cancer (Acute) Blood pressure elevated without history of HTN (Acute) Obesity (BMI 30.0-34.9) (Acute) Contusion of left thumb (Acute) Past Medical History Medical History BPH (benign prostatic hyperplasia) Frequency of micturition Kidney stones Leucocytosis Mass of left side of neck Obesity (BMI 30-39.9) Peripheral vascular disease Renal calculus, right Right shoulder pain Thrombocytopenia Family History Family History Mother Dementia Father Parkinson disease Prostate cancer Brother No problems noted. Brother Rectal cancer Sister No problems noted. Daughter No problems noted. Son No problems noted. Surgical History Surgical History History of lumbar surgery Hx of tonsillectomy Social History Social History Household Members: Spouse Housing: House Alcohol intake: never Patient Tobacco Use Status: Never used Tobacco e-Cigarette/Vaping Use: Never Used Second Hand Smoke Exposure: No Are you DNR?: No Advance Directives: No Advance Directives Information Provided: Yes Nutrition Risks: No Nutritional Risk service: No Current occupational status: employed Current occupation: auto, referee, rock climbing, rt hand Cognitive needs: No Hearing needs: No Vision needs: Yes Meds Allergies Allergy/AdvReac Type Severity Reaction Status Date / Time No Known Allergies Allergy Verified 02/26/23 09:16 Exam Exam Date and Time: February 23, 2023 1053 Height,Weight and Vital Signs: Height 6 ft 3 in Weight 114.759 kg Pertinent Lab Results Pertinent Lab Results: Laboratory Tests 02/20/23 02/20/23 12:43 12:43 WBC 27.2 H Hgb 15.9 Hct 48.0 Plt Count 126 L Sodium 141 Potassium 4.1 Chloride 109 H Carbon Dioxide 25 BUN 13 Creatinine 0.87 Narrative Narrative: US venous duplex LE RT 01/2023 IMPRESSION: No evidence for deep venous thrombosis in the visualized veins of the right lower extremity. EKG 01/2023 Vent. Rate : 064 BPM ? ? Atrial Rate : 064 BPM ?? P-R Int : 150 ms? QRS Dur : 080 ms ? ? QT Int : 386 ms ? ? ? P-R-T Axes : 045 -11 025 degrees ?? QTc Int : 398 ms ? Normal sinus rhythm Normal ECG When compared with ECG of 05-NOV-2014 08:51, No significant change was found Assessment and Plan Assessment Anesthesia Assessment: Chart Reviewed Documented by User: Ro Lizarraga MD 02/26/23 09:36 PMFSH Active Problems Active Problems: All Active Problems (Updated 02/26/23 @ 09:26 by Ro Lizarraga MD) Annual physical exam (Acute) CLL (chronic lymphocytic leukemia) (Acute). Recently diagnosed. Yet to begin chemo BPH loc w urin obs/LUTS (Acute) Bilateral renal stones (Acute) Family history of rectal cancer (Acute) Blood pressure elevated without history of HTN (Acute) Obesity (BMI 30.0-34.9) (Acute) Contusion of left thumb (Acute) Denies ISABELLE Past Medical History Medical History BPH (benign prostatic hyperplasia) Frequency of micturition Kidney stones Leucocytosis Mass of left side of neck Obesity (BMI 30-39.9) Peripheral vascular disease Renal calculus, right Right shoulder pain Thrombocytopenia Family History Family History Mother Dementia Father Parkinson disease Prostate cancer Brother No problems noted. Brother Rectal cancer Sister No problems noted. Daughter No problems noted. Son No problems noted. Family history of problems with anesthesia: No Surgical History Surgical History History of lumbar surgery Hx of tonsillectomy History of Problems with Anesthesia: No Social History Social History Household Members: Spouse Housing: House Alcohol intake: never Patient Tobacco Use Status: Never used Tobacco e-Cigarette/Vaping Use: Never Used Second Hand Smoke Exposure: No Are you DNR?: No Advance Directives: No Advance Directives Information Provided: Yes Nutrition Risks: No Nutritional Risk service: No Current occupational status: employed Current occupation: auto, referee, rock climbing, rt hand Cognitive needs: No Hearing needs: No Vision needs: Yes Meds Allergies Allergy/AdvReac Type Severity Reaction Status Date / Time No Known Allergies Allergy Verified 02/26/23 09:16 Exam Height,Weight and Vital Signs: Height 6 ft 3 in Weight 114.759 kg Vital Signs Temp Pulse Resp BP Pulse Ox O2 Del Method 02/26/23 09:15 97.9 F 62 18 148/77 H 97 Room Air Airway Mallampati Class: II TM Dist: >3cm Neck ROM: Full Loose/Missing/Broken Teeth: Yes (Caps intact. Some missing teeth. Denies broken or loose teeth) Heart: RRR Lungs: CTAB Assessment and Plan Assessment Anesthesia Assessment: Anesthesia Plan Discussed Final Anesthetic Review Family History of Problems with Anesthesia: No History of Problems with Anesthesia: No NPO: Yes ASA Class: III Final Preanesthetic Review: No Changes in Pt Med Stat, Meds/Allgs Chart Reviewed, Consent Obtained/Reviewed and Anes Risks/Benef Reviewed Patient Risk: Intermediate Procedure Risk: Low Assessment/Block/Sedation in SS: Assess/Block/Sedation-SS Anesthetic Plan Anesthetic Plan: MAC: Disposition: Standard PACU
[2023-02-26] MEDS: Lactated Ringers 1,000 ML 100 ML IVCONT (09:08)
[2023-02-26 09:15] VITALS: BP 148/77; PULSE 62; RESP 18; TEMP 36.6; O2SAT 97
--- NOTE | 2023-02-26 09:38 | MHC.SHP ---
Pre-Procedural Eval Section A Date of Service: 02/26/23 The patient is an INPATIENT: No The History & Physical has been completed within 30 days and I have reviewed it.: No Section B Chief Complaint: screening, family hx of colon cancer Relevant Family History (Specify if Yes): Yes Relevant Social History: None Present Medications: see Short Stay Collaborative assessment Medical History: Significant History (Peripheral vascular disease Renal calculus, right Right shoulder pain Thrombocytopenia) History of Previous Operations: Relevant previous surgery/procedure and date(s) (History of lumbar surgery Hx of tonsillectomy) Allergies: Allergies Allergy/AdvReac Type Severity Reaction Status Date / Time No Known Allergies Allergy Verified 02/26/23 09:16 Review of Systems Sugical H&P ROS: Negative: Constitution, Cardiovascular, Respiratory and Gastrointestinal Exam Surgical H&P Exam: Normal: Heart, Normal: Lungs, Normal: Extremities and Normal: Abdomen Plan Diagnosis/Plan: Unchanged I have reviewed the history and physical and performed a pertinent physical examination on my patient. No changes have occurred unless specified. Time Spent With Patient Time: Total time managing care of this patient today ____ minutes.
--- NOTE | 2023-02-26 10:28 | W.PM.OPN ---
Operative Note Operative Note Date of Service: 02/26/23 Narrative: COLONOSCOPY TILL CECUM WITH BIOPSIES AND SNARE POLYPECTOMY Pre-op diagnosis: Colon cancer screening, family history of colon cancer (brother had rectal cancer in his 50's) Post-op diagnosis:? Colon polyps, diverticulosis, hemorrhoids Endoscopist:? Eunice Jeffers MD Anesthesia:?MAC Consent: Indications for the procedure and potential complications of bleeding, perforation, reaction to medications and missed diagnosis were discussed with the patient and informed consent was obtained. Instrument: Olympus CF H 190 L variable stiffness adult colonoscope Monitoring: Vital signs and clinical assessment, intermittent blood pressure monitoring, continuous EKG monitoring, Pulse oximetry and Carbon Dioxide monitoring were done throughout the procedure. Please see anesthesia flowsheet. Colon withdrawl time was 25 minutes. Procedure: The patient was placed in the left lateral decubitis position and pre-procedure medications were administered. After a digital rectal examination of the ano-rectum, the video colonoscope was inserted into the rectum and advanced through the colon to the cecum. The colonoscope was slowly withdrawn in a retrograde panoramic fashion and the colon mucosa was carefully examined including a retroflexed view of the rectum. Findings and interventions are described below. Procedure Difficulty: Without difficulty Findings: Terminal Ileum: Not evaluated Cecum: A 3-4 mm sessile polyp - removed with a cold snare and polyp was not retrieved Ascending Colon: Two 5 to 7 mm sessile polyps - removed with a cold snare Transverse Colon: A 3-4 mm sessile polyp removed with a cold biopsy Descending Colon: Normal Sigmoid Colon: Mild diverticulosis Rectum: Normal Ano-rectum: Small internal hemorrhoids Colon preparation: Good after copious irrigation in the right colon and fair in the left colon Impression and Post Procedure Diagnosis: Colonoscopy Findings: Four small polyps removed (one polyp was not retrieved) Mild diverticulosis seen in the sigmoid colon Small hemorrhoids on retroflexed exam. Plan: Await pathology results Patient has an appointment on 03/12/23 in the GI Clinic with Sharon Clark FNP-BC. Repeat Colonoscopy interval based on path results - in 3 years if polyps are adenomatous and due to fair prep in the left colon (needs an adult colonoscope and extra laxatives and a fleet enema prior to next colonoscopy). Colon polyps and diverticulosis handouts were given in the discharge area
[2023-02-26 11:08] VITALS: BP 117/78; PULSE 72; RESP 17; TEMP 36.7; O2SAT 98
[2023-02-26 11:23] VITALS: BP 135/92; PULSE 64; RESP 20; TEMP 37.1; O2SAT 98
== END 2023-02-26 11:54 | disposition home or self-care (01) ==
PROVIDERS: PCP Internal Medicine; Visit Provider Internal Medicine Gastroenterology
PROC: 0DJD8ZZ Inspection of Lower Intestinal Tract, Via Natural or Artificial Opening Endoscopic (ICD-10-PCS; CPT 45378; principal; 2023-02-26 10:10)
DX: Z12.11 Encounter for screening for malignant neoplasm of colon (principal); Z80.0 Family history of malignant neoplasm of digestive organs; D12.2 Benign neoplasm of ascending colon; D12.3 Benign neoplasm of transverse colon; K63.5 Polyp of colon; K57.30 Diverticulosis of large intestine without perforation or abscess without bleeding; K64.8 Other hemorrhoids; C91.10 Chronic lymphocytic leukemia of B-cell type not having achieved remission; I73.9 Peripheral vascular disease, unspecified; D69.6 Thrombocytopenia, unspecified; N40.1 Benign prostatic hyperplasia with lower urinary tract symptoms; R35.0 Frequency of micturition; E66.9 Obesity, unspecified; Z68.31 Body mass index [BMI] 31.0-31.9, adult; Z87.442 Personal history of urinary calculi; Z79.899 Other long term (current) drug therapy
CPT/HCPCS: 45385; 45380; 88305

== ENCOUNTER → 2023-02-26 08:23 | Outpatient (BNV) | payer OTHER, SELFPAY | PROVIDERS: PCP Internal Medicine; Visit Provider Internal Medicine Gastroenterology | DX: Z12.11 Encounter for screening for malignant neoplasm of colon (principal); Z80.0 Family history of malignant neoplasm of digestive organs; D12.0 Benign neoplasm of cecum; D12.2 Benign neoplasm of ascending colon; D12.3 Benign neoplasm of transverse colon; K57.30 Diverticulosis of large intestine without perforation or abscess without bleeding | CPT/HCPCS: 45380; 45385 ==

== ENCOUNTER 2023-03-12 09:31 | Outpatient (AMB) | payer OTHER, SELFPAY ==
[2023-03-12 09:36] VITALS: BP 145/69; PULSE 67; BMI 32.5
--- NOTE | 2023-03-12 09:36 | MHC.OFFVIS ---
Intake Vital Signs 03/12/23 09:36 Height 6 ft 3 in Weight 259 lb 11.272 oz BMI 32.5 BP 145/69 H Blood Pressure Location Lt brachial Position Sitting Pulse 67 Pulse Source Pulse Oximeter Intake Visit Reasons: S/p colon-Zeyad Intake Note: Pt presents to the office today for a s/p colon. Pt states he is feeling okay. Pt denies any N/V/D. Pt also denies any stomach upset/pains. Allergies No Known Allergies Allergy (Verified 03/12/23 09:38) HPI S/p colon-Zeyad HPI Details LAST VISIT Screen for colon cancer Patient denies any GI, cardiac or respiratory symptoms.? Denies any issues with anesthesia in the past.? Denies any history of sleep apnea.? No history infectious diseases in the past or present.? Not on any anticoagulation therapy.? Personally patient had colonoscopy in November of 2014 that showed no polyps. However patient does have a family history of colorectal cancer. Patient denies melena, hematochezia, unintentional weight loss or ribbon like stools.? Discussed at length the pre-procedure,? prep, diet & medications as well as what to expect prior, during and after the procedure.?? Stressed the importance of good bowel prep. ?Recommended the use of Vaseline or Calmoseptine OTC & baby wipes with bowel movements to promote comfort.? ?Patient verbalizes understanding and agrees to plan of care.? He was given the opportunity to ask questions and all questions answered.? We will see him after the procedure.? COLONOSCOPY Findings: Terminal Ileum: Not evaluated Cecum: A 3-4 mm sessile polyp - removed with a cold snare and polyp was not retrieved Ascending Colon: Two 5 to 7 mm sessile polyps - removed with a cold snare Transverse Colon: A 3-4 mm sessile polyp removed with a cold biopsy Descending Colon: Normal Sigmoid Colon: Mild diverticulosis Rectum: Normal Ano-rectum: Small internal hemorrhoids Colon preparation: Good after copious irrigation in the right colon and fair in the left colon Impression and Post Procedure Diagnosis: Colonoscopy Findings: Four small polyps removed (one polyp was not retrieved) Mild diverticulosis seen in the sigmoid colon Small hemorrhoids on retroflexed exam. Plan: Repeat Colonoscopy interval based on path results - in 3 years if polyps are adenomatous and due to fair prep in the left colon (needs an adult colonoscope and extra laxatives and a fleet enema prior to next colonoscopy). PATHOLOGY RESULTS Diagnosis A. Colon, ascending, polypectomy x2: Tubular adenoma (2); negative for high-grade dysplasia. B. Colon, transverse, polypectomy: Tubular adenoma; negative for high-grade dysplasia. TODAY'S VISIT Patient is here today for follow-up and to discuss colonoscopy results. Patient denies any ill effects from the prep, anesthesia or procedure itself. Patient reports that he has been feeling well. Moving his bowels without any issues. Denies melena, hematochezia, unintentional weight loss or ribbon like stools. Tubular adenoma on diverticulosis found on colonoscopy. Recommendation was made for patient to return for colonoscopy in 3 years. Patient denies any GI concerning symptoms. Patient reports that he was diagnosed with lymphoma and started oral treatment. Patient denies any nausea or vomiting. Patient denies dyspepsia, dysphagia or odynophagia PFSH Medical History Kidney stones BPH (benign prostatic hyperplasia) Leucocytosis Mass of left side of neck Frequency of micturition Renal calculus, right Peripheral vascular disease Thrombocytopenia Obesity (BMI 30-39.9) Right shoulder pain Surgical History Hx of colonoscopy History of lumbar surgery Hx of tonsillectomy Family History Mother Dementia Father Parkinson disease Prostate cancer Brother No problems noted. Brother Rectal cancer Sister No problems noted. Daughter No problems noted. Son No problems noted. Social History Household Members: Spouse Housing: House Alcohol intake: never Patient Tobacco Use Status: Never used Tobacco e-Cigarette/Vaping Use: Never Used Second Hand Smoke Exposure: No service: No Current occupational status: employed Current occupation: auto, referee, rock climbing, rt hand Cognitive needs: No Hearing needs: No Vision needs: Yes Review of Systems Const Denies weight gain and Denies weight loss ENT Reports no additional complaints, Denies dysphagia and Denies odynophagia Card Reports no additional complaints Resp Reports no additional complaints GI Denies abdominal pain, Denies belching, Denies melena, Denies bloating, Denies change in bowel habits, Denies dysphagia, Denies excessive flatus, Denies dyspepsia, Denies heartburn, Denies diarrhea, Denies loose stools, Denies nausea, Denies odynophagia and Denies vomiting Reports no additional complaints Musc Reports no additional complaints Neuro Reports no additional complaints Psych Reports no additional complaints Endo Reports no additional complaints Physical Exam Vital Signs: Last Vital Signs Pulse 67 03/12/23 09:36 BP 145/69 H 03/12/23 09:36 BMI result Body Mass Index 32.5 Const General: healthy appearing, no acute distress and well developed Nutritional Appearance: obese Orientation/consciousness: patient oriented x3 HEENT Head: Yes normal to inspection, Yes normocephalic and Yes atraumatic Face and sinus: Yes normal facial exam Mouth: Normal oral and palatal mucosa present Throat: Yes posterior oropharynx normal, Yes tonsils normal and Yes uvula midline Eyes General: appearance normal, both eyes and all related structures Neck Neck: Yes normal visual inspection, Yes full ROM and Yes trachea midline Thyroid: Thyroid normal Resp Effort & Inspection: normal respiratory effort, able to speak in complete sentences, no tracheal deviation and symmetric chest movement Auscultation: clear to auscultation bilaterally Cardio Rate: regular rate Heart sounds: S1 normal heart sound present and S2 normal heart sound present GI Inspection: Yes normal to inspection, No distended and Yes obesity Palpation (GI): Soft to palpation, not firm, nontender and No hepatosplenomegaly present Auscultation: normal bowel sounds General: Yes no CVA tenderness Back/Spine/Pelvis Back: no CVA tenderness Skin General skin exam: elasticity normal, turgor normal and dry skin Neuro General: patient oriented x3 Psych Appearance: grossly normal Mental Status: mental status grossly normal Speech and movement: Normal speech and movement present Assessment & Plan Assessment & Plan (1) Tubular adenoma: Code(s): D36.9 - Benign neoplasm, unspecified site Plan: Tubular adenoma without high-grade dysplasia or carcinoma found. Patient will return for colorectal screening in 3 years, sooner if clinically necessary (2) Diverticulosis: Code(s): K57.90 - Diverticulosis of intestine, part unspecified, without perforation or abscess without bleeding Plan: Diverticulosis of sigmoid colon found. Discussed with patient high fiber diet. List of food high in fiber given to patient. (3) Status post colonoscopy: Code(s): Z98.890 - Other specified postprocedural states Plan: Patient denies any ill effects from the prep, anesthesia or procedure itself. Tubular adenoma without high-grade dysplasia or carcinoma found. Three years colo screening recommended. Diverticulosis of the sigmoid colon found as well. I will see patient on as needed basis. He is agreeable to this plan and verbalizes understanding of instructions. He was given the opportunity to ask questions and all questions answered. Thank you for allowing me to participate in his care Coding Level of Care Code Est Pt Level 3 (23432) Diagnoses Tubular adenoma D36.9 Diverticulosis K57.90 Status post colonoscopy Z98.890 Time Spent (min) 30 Comment 20 minutes spent with patient and additional 10 minutes spent reviewing his records
== END 2023-03-12 09:56 | disposition home or self-care (01) ==
PROVIDERS: PCP Internal Medicine; Visit Provider Nurse Practitioner Family
DX: D36.9 Benign neoplasm, unspecified site (principal); K57.90 Diverticulosis of intestine, part unspecified, without perforation or abscess without bleeding; Z98.890 Other specified postprocedural states
CPT/HCPCS: 99213

== ENCOUNTER → 2023-03-12 09:31 | Outpatient (BNVA) | payer OTHER, SELFPAY | PROVIDERS: PCP Internal Medicine; Visit Provider Nurse Practitioner Family ==

== ENCOUNTER 2023-03-15 10:40 | Outpatient (AMB) | payer OTHER, SELFPAY ==
[2023-03-15 11:22] VITALS: BP 108/62; PULSE 74; O2SAT 97; BMI 32.4
--- NOTE | 2023-03-15 11:22 | MHC.PC.OV ---
Vital Signs 03/15/23 11:22 03/15/23 11:40 Height 6 ft 3 in Weight 259 lb BMI 32.4 BP 108/62 120/70 Blood Pressure Location Lt brachial Lt brachial Position Sitting Sitting Pulse 74 Pulse Source Pulse Oximeter Pulse Oximetry (%) 97 Oxygen Delivery Method Room Air Intake Visit Reasons: Leukocytosis with lymphadenopathy, renal calculi Allergies No Known Allergies Allergy (Verified 03/15/23 11:23) Tobacco use date assessed: 11/20/22 Dental Screening Dental Screen Date: 03/15/23 Did you have a dental visit in the last 12 months?: Yes Did you have a dental problem in the last 6 months where you did not have access to dental care?: No Was dental information given to patient?: Patient has dentist HPI Leukocytosis with lymphadenopathy, renal calculi HPI Details 58-year-old obese male with CLL, BPH nephrolithiasis coming in for follow-up. Last seen in January 2023 and had colonoscopy done showing tubular adenoma. Patient had some concerns about pressure but it has been better. Patient continues to follow-up with hematology oncology patient has in the last 2 weeks to receive the chemotherapy [facility] noted the wbc's up at 66. Has a little bit of headache today took Tylenol feeling a little bit better blood pressure has been good. No fevers no neck pains after bending neck no bowel bladder symptoms right. Tamsulosin does help the BPH PFSH Medical History Kidney stones BPH (benign prostatic hyperplasia) Leucocytosis Mass of left side of neck Frequency of micturition Renal calculus, right Peripheral vascular disease Thrombocytopenia Obesity (BMI 30-39.9) Right shoulder pain Surgical History Hx of colonoscopy History of lumbar surgery Hx of tonsillectomy Family History Mother Dementia Father Parkinson disease Prostate cancer Brother No problems noted. Brother Rectal cancer Sister No problems noted. Daughter No problems noted. Son No problems noted. Social History Household Members: Spouse Housing: House Alcohol intake: never Patient Tobacco Use Status: Never used Tobacco e-Cigarette/Vaping Use: Never Used Second Hand Smoke Exposure: No service: No Current occupational status: employed Current occupation: auto, referee, rock climbing, rt hand Cognitive needs: No Hearing needs: No Vision needs: Yes Questionnaire PHQ-9 Over the last 2 weeks, how often have you been bothered by any of the following problems? 1. Little interest or pleasure in doing things: not at all 2. Feeling down, depressed, or hopeless: not at all 3. Trouble falling or staying asleep, or sleeping too much: not at all 4. Feeling tired or having little energy: not at all 5. Poor appetite or overeating: not at all 6. Feeling bad about yourself - or that you are a failure or have let yourself or your family down: not at all 7. Trouble concentrating on things, such as reading the newspaper or watching television: not at all 8. Moving or speaking so slowly that other people could have noticed. Or the opposite - being so fidgety or restless that you have been moving around a lot more than usual: not at all 9. Thoughts that you would be better off or of hurting yourself in some way: not at all Total score: 0 Depression Screening Interpretation: Negative Source: Developed by Drs. Jacobo Welch, Tiana Mojica, Robin Yang and colleagues, with an educational traci from [employer]. Thrive Questionnaire Date Thrive assessed: 10/09/22 AUDIT C Alcohol Use Questionnaire (AUDIT-C) 1. How often do you have a drink containing alcohol?: Monthly or less 2. How many drinks containing alcohol do you have on a typical day when you are drinking?: 1 or 2 3. How often do you have six or more drinks on one occasion?: Never Total Score: 1 HELENE-7 AMB Questionnaire HELENE-7 Date HELENE - 7 assessed: 10/09/22 Source: Developed by Drs. Jacobo Welch, Tiana Mojica, Robin Yang and colleagues, with an educational traci from [employer]. Physical exam (Primary Care) Vital Signs: Last Vital Signs Pulse 74 03/15/23 11:22 BP 108/62 03/15/23 11:22 Pulse Ox 97 03/15/23 11:22 Oxygen Delivery Method Room Air 03/15/23 11:22 BMI result Body Mass Index 32.4 Tobacco/Smoking Status: Tobacco use Status Tobacco use date assessed 11/20/22 03/15/23 11:28 Patient Tobacco Use Status Never used Tobacco 03/15/23 11:28 e-Cigarette/Vaping Use Never Used 03/15/23 11:28 PHQ-9: PHQ-9 Score PHQ-9: Total score 0 03/15/23 11:28 Depression Screening Interpretation: Negative Thrive Assessment: Date of Thrive Assessment Date Thrive assessed 10/09/22 03/15/23 11:28 Const General: alert; No acute distress Eyes Conjunctivae: conjunctivae normal Resp Auscultation: clear to auscultation bilaterally Cardio Rate: regular rate Rhythm: regular rhythm GI Inspection: Yes normal to inspection Extrem General: Yes normal to inspection and No edema Assessment and Plan Assessment & Plan (1) Blood pressure elevated without history of HTN: Code(s): R03.0 - Elevated blood-pressure reading, without diagnosis of hypertension Plan: patient's blood pressure has been good. Keep well hydrated (2) Tubular adenoma of colon: Comment: 01/2023 Code(s): D12.6 - Benign neoplasm of colon, unspecified Plan: Patient had colonoscopy done advised repeat testing in 3 years (3) CLL (chronic lymphocytic leukemia): Comment: December 2022 Code(s): C91.10 - Chronic lymphocytic leukemia of B-cell type not having achieved remission Plan: Continue to follow-up with Hematology-Oncology (4) BPH loc w urin obs/LUTS: Code(s): N40.1 - Benign prostatic hyperplasia with lower urinary tract symptoms Plan: Continue with tamsulosin (5) Bilateral renal stones: Comment: Bilateral nonobstructing nephrolithiasis. * Left renal cysts with peripheral calcifications measuring up to 1.9 cm, almost certainly benign. * Prostatomegaly with large postvoid residual of 127 mL. October 2022 Code(s): N20.0 - Calculus of kidney Plan: Increase oral fluids Coding Level of Care Code Est Pt Level 4 (20070) Diagnoses Blood pressure elevated without history of HTN R03.0 Tubular adenoma of colon D12.6 CLL (chronic lymphocytic leukemia) C91.10 BPH loc w urin obs/LUTS N40.1 Bilateral renal stones N20.0
[2023-03-15 11:40] VITALS: BP 120/70
== END 2023-03-15 11:56 | disposition home or self-care (01) ==
PROVIDERS: PCP Internal Medicine; Visit Provider Internal Medicine
DX: R03.0 Elevated blood-pressure reading, without diagnosis of hypertension (principal); D12.6 Benign neoplasm of colon, unspecified; C91.10 Chronic lymphocytic leukemia of B-cell type not having achieved remission; N40.1 Benign prostatic hyperplasia with lower urinary tract symptoms; N20.0 Calculus of kidney; Z23 Encounter for immunization
CPT/HCPCS: 90471; 90677; 99214

== ENCOUNTER 2023-07-16 08:11 | Outpatient (REF) | payer BC, SELFPAY ==
[2023-07-16 10:07] LABS: PSA,Total (Free>4and<10) 2.57 ng/mL (0.00-4.00)
== END 2023-07-16 08:12 | disposition home or self-care (01) ==
LOC: HO.LAB 08:11
PROVIDERS: PCP Internal Medicine; Visit Provider Urology
DX: Z12.5 Encounter for screening for malignant neoplasm of prostate (principal); N20.0 Calculus of kidney; N40.1 Benign prostatic hyperplasia with lower urinary tract symptoms
CPT/HCPCS: 36415; 51798; 81003; 84153

== ENCOUNTER 2023-07-16 08:11 | Outpatient (AMB) | payer BC, OTHER, SELFPAY ==
--- NOTE | 2023-07-16 08:19 | A.OFFVIS_ITS ---
Intake Intake Visit Reasons: 6m/BPH/litholink Intake Note: Patient presents today to established treatment for BPH Calculus of Kidney. Meds: Tamsulosin 0.4 mg Allergies to Antibiotic: None Blood Thinner: None Post Void Residual: 0 mL [employer] Operations [employer] Required: No Accompanied by: Self / Same As Patient Allergies No Known Allergies Allergy (Verified 07/16/23 08:21) HPI HPI Comments History of Present Illness Details Mitchel is a 57-year-old male who presents to the office for FU for evaluation of BPH and kidney stones. 07/16/23--Mitchel states he is using the ta msulosin, I have reviewed the 24 hr urine results with him. Discussed 24 hour urine results: Total volume 0.72 L, Calcium 102 mg; Oxalate 23 mg, Sodium 66, Citrate 665 mg. Instructed on importance of fluid intake, Low oxalate diet, low sodium diet. Review of chart: followed by hematology-oncology ---recently diagnosed with leukemia. pt states has passed kidney stones in the past. states his father had history of prostate cancer. States that his brother also had history of cancer and underwent colostomy but is not sure about the type of cancer Results: PSA results reviewed--10/10/22-- 2.53. Renal US results reviewed--10/19/22-- Left renal cysts measuring up to 1.9 cm. Bilateral nonobstructing kidney stones, Prostatomegaly with PVR--127 mL. 12/18/22 prostate exam-- Mild to moderat cassie enlarged, irregular, no suspicious nodules palpated. AUA symptom score: 15. Plan: PSA screening Discussed to consume up to 64 ounces of fluid daily. Continue tamsulosin 0.4 mg QD. Follow-up after [address]-abdomen stone protocol prior [facility] Medical History Kidney stones BPH (benign prostatic hyperplasia) Leucocytosis Mass of left side of neck Frequency of micturition Renal calculus, right Peripheral vascular disease Thrombocytopenia Obesity (BMI 30-39.9) Right shoulder pain Surgical History Hx of colonoscopy History of lumbar surgery Hx of tonsillectomy Family History Mother Dementia Father Parkinson disease Prostate cancer Brother No problems noted. Brother Rectal cancer Sister No problems noted. Daughter No problems noted. Son No problems noted. Social History Household Members: Spouse Housing: House Alcohol intake: never Patient Tobacco Use Status: Never used Tobacco e-Cigarette/Vaping Use: Never Used Second Hand Smoke Exposure: No service: No Current occupational status: employed Current occupation: auto, referee, rock climbing, rt hand Cognitive needs: No Hearing needs: No Vision needs: Yes Review of Systems Const All systems reviewed & are unremarkable except as noted in HPI and below Reports no additional complaints Eyes Reports no additional complaints ENT Reports no additional complaints Card Denies dyspnea Resp Denies cough and Denies dyspnea GI Reports no additional complaints Musc Reports no additional complaints Skin/Breast Denies rash and Denies unusual bruising Neuro Reports no additional complaints Psych Reports no additional complaints Endo Reports no additional complaints Kody/Lymph Reports no additional complaints Aller/Immun Reports no additional complaints Office Procedures Post Void Residual Post Residual Void Post Void Residual (PVR): 0 [id number]-Ikda Void Residual by ultrasound Results AMB Urinalysis, Automated UA Leukoctes 0 Chen/uL Last Edit by VINAY Jimenez on 07/16/23 08:27 UA Nitrite Negative Last Edit by VINAY Jimenez on 07/16/23 08:27 UA Urobilinogen 0.2 mg/dL Last Edit by VINAY Jimenez on 07/16/23 08:2 7 UA Protein 15 mg/dL Last Edit by VINAY Jimenez on 07/16/23 08:27 UA pH 6.0 Last Edit by VINAY Jimenez on 07/16/23 08:27 UA Blood 0 Ed/uL Last Edit by VINAY Jimenez on 07/16/23 08:27 UA Specific Meta 1.025 Last Edit by VINAY Jimenez on 07/16/23 08: 27 UA Ketone Negative Last Edit by VINAY Jimenez on 07/16/23 08:27 UA Bilirubin 0 mg/dL Last Edit by VINAY Jimenez on 07/16/23 08:27 UA Glucose 0 mg/dL Last Edit by VINAY Jimenez on 07/16/23 08:27 Results Reviewed Results Reviewed: Laboratory Last Values Urine pH (Auto) 6.0 07/16/23 08:26 Specific Meta (Auto) 1.025 07/16/23 08:26 Urine Protein (Auto) 15 mg/dL 07/16/23 08:26 Glucose (UA)(Auto) 0 mg/dL 07/16/23 08:26 Urine Ketones (Auto) Negative 07/16/23 08:26 Urine Blood (Auto) 0 Ed/uL 07/16/23 08:26 Urine Nitrite (Auto) Negative 07/16/23 08:26 Urine Bilirubin (Auto) 0 mg/dL 07/16/23 08:26 Urine Urobilinogen (Auto) 0.2 mg/dL 07/16/23 08:26 Leukocyte Esterase (Auto) 0 Chen/uL 07/16/23 08:26 Assessment & Plan Assessment & Plan (1) Screening PSA (prostate specific antigen): Code(s): Z12.5 - Encounter for screening for malignant neoplasm of prostate (2) BPH loc w urin obs/LUTS: Code(s): N40.1 - Benign prostatic hyperplasia with lower urinary tract symptoms (3) Bilateral renal stones: Comment: Bilateral nonobstructing nephrolithiasis. * Left renal cysts with peripheral calcifications measuring up to 1.9 cm, almost certainly benign. * Prostatomegaly with large postvoid residual of 127 mL. October 2022 Code(s): N20.0 - Calculus of kidney Plan PSA screening Discussed to consume up to 64 ounces of fluid daily. Continue tamsulosin 0.4 mg QD. Follow-up after [address]-abdomen stone protocol prior Orders: Orders AMB Urinalysis Automated 07/16/23 Z13.9 - Encounter for screening, unspecified CT abdomen pelvis wo IV con 10 Months N20.0 - Calculus of kidney AMB Post Void Residual by ultrasound 07/16/23 N39.8 - Other specified disorders of urinary system PSA,Total (Free>4and<10) 07/16/23 Z12.5 - Encounter for screening for malignant neoplasm of prostate Patient Instructions: The patient had an opportunity to ask questions regarding treatment plan. All questions were answered. Imaging, Laboratory studies and physical exam results were discussed and reviewed in detail. No major barriers to understanding were identified. The patient expressed understanding and agreement with the above treatment plan. The patient is aware they should contact our office by phone for worsening of their current condition or the appearance of new symptoms. Compliance is encouraged with any medications and followup testing that is ordered. It is a privilege to be allowed the opportunity to participate in the urologic care of your patient. If you have any questions or concerns regarding treatment for the above conditions please do not hesitate to contact me. The office telephone contact is [phone]. This note is constructed in part using voice recognition software. While every effort has been made to ensure accuracy returned goods sorter errors may have been included. Yours sincerely, Alexandrea Cramer MD Coding Level of Care Code Est Pt Level 4 (77394) Diagnoses Screening PSA (prostate specific antigen) Z12.5 BPH loc w urin obs/LUTS N40.1 Bilateral renal stones N20.0 CPT Codes Post Residual Void - PVR CPT Code: 17600-Abzx Void Residual by ultrasound ([id number])
== END 2023-07-16 08:55 | disposition home or self-care (01) ==
PROVIDERS: PCP Internal Medicine; Visit Provider Urology
DX: Z12.5 Encounter for screening for malignant neoplasm of prostate (principal); N40.1 Benign prostatic hyperplasia with lower urinary tract symptoms; N20.0 Calculus of kidney
CPT/HCPCS: 99214

== ENCOUNTER 2023-08-22 07:50 | Outpatient (REF) | payer BC, SELFPAY ==
--- NOTE | ~2023-08-22 | CT_ITS ---
EXAMINATION: CT CHEST WITH CONTRAST CLINICAL INFORMATION: Chronic lymphocytic leukemia, on chemotherapy, follow-up evaluation COMPARISON: CT pulmonary angiogram on 02/01/2023 TECHNIQUE: Multidetector volumetric CT imaging of the chest was obtained after the administration of 65 mL of Omnipaque 350 intravenous contrast without immediate adverse reactions. Axial MIP volume rendering provided. Sagittal and coronal reformatted images were obtained. This CT examination was performed using dose optimization techniques as appropriate, variously including the following: *Automated exposure control *Adjustment of mA and/or kV according to patient size (this includes techniques or standardized protocols for targeted exams where dose is matched to indication/reason for exam; i.e. extremities or head) *Use of iterative reconstruction technique DLP: 820 mGy-cm FINDINGS: LUNGS: Transverse colon no platelike atelectasis is seen at anterior right lower lobe. Unchanged right upper lobe and bilateral lower lobe micronodules less than 3 mm in size are seen. PLEURA: No pleural effusion or pneumothorax is seen. PERICARDIUM: There is trace right pericardial effusion measuring 0.7 cm in thickness, mean attenuation of 24 Hounsfield units. MEDIASTINUM AND ROWENA: No abnormally enlarged mediastinal or hilar lymph nodes are seen. TRACHEOBRONCHIAL TREE: Trachea and bilateral mainstem bronchi are patent. THORACIC AORTA: The thoracic aorta is normal in size and smoothly patent. CORONARY ARTERY CALCIFICATIONS: None PULMONARY ARTERIES: The main pulmonary arteries show normal enhancement. CHEST WALL AND LOWER NECK: No abnormally enlarged axillary lymph nodes could be seen. The subcutaneous and muscular chest wall are intact with no focal lesion. No abnormal mass lesion could be seen in the visualized lower neck. BONES: Multilevel sharp anterior syndesmophytes are seen in the thoracic spine. No fracture or dislocation. No focal bone lesion diagnostic of metastatic disease could be seen in the thorax. VISUALIZED UPPER ABDOMEN: Bilateral adrenal glands are not enlarged. CT/CT chest w IV con IMPRESSION: 1. No CT evidence of abnormally enlarged mediastinal and hilar lymph nodes. 2. Unchanged right upper lobe and bilateral lower lobe micronodules less than 3 mm in size. 3. Interval development of coronal Platelike atelectasis at anterior right lower lobe. 4. Interval development of Trace right pericardial effusion. 5. Interval complete resolution of bilateral axillary lymphadenopathy. Fleischner guidelines were followed.
--- NOTE | ~2023-08-22 | CT_ITS ---
EXAMINATION: CT SOFT TISSUE NECK WITH CONTRAST CLINICAL INFORMATION: Follow-up adenopathy, on chemotherapy. COMPARISON: CT scan of the neck 01/19/2023. Concurrent CT scan of the chest 08/22/2023. TECHNIQUE: Following the intravenous administration of 65 mL of Omnipaque 350 intravenous contrast, helical imaging was performed in the axial plane with generation of coronal and sagittal reformatted images. This CT examination was performed using dose optimization techniques as appropriate, variously including the following: *Automated exposure control *Adjustment of mA and/or kV according to patient size (this includes techniques or standardized protocols for targeted exams where dose is matched to indication/reason for exam; i.e. extremities or head) *Use of iterative reconstruction technique DLP: 820 mGy-cm FINDINGS: There has been marked interval decrease in the size of previously demonstrated multilevel lymphadenopathy in the neck and axillary regions bilaterally. There is no cervical lymphadenopathy; there are small lymph nodes at multiple levels in the neck bilaterally. The parotid glands are homogeneous in attenuation. The submandibular glands are normal. No contour abnormality or pathologic enhancement is seen within the oral cavity or pharyngeal mucosal space. The laryngeal structures are normal. The parapharyngeal fat is preserved. The carotid sheath vasculature opacifies normally. No extra mucosal soft tissue mass or fluid collection is seen. No retropharyngeal fluid collection is seen. The thyroid gland is normal. There is no mediastinal lymphadenopathy. The lung apices are clear; please see report from CT scan of the chest for more complete details. The mastoid air cells are well-aerated. There is mucoperiosteal thickening in the left sphenoid and bilateral ethmoid sinuses. There are retention cysts in the inferior maxillary sinuses bilaterally. The temporomandibular joints are normal. The patient is now edentulous in the maxilla. There are mild facet arthropathic changes in the cervical spine. There are no acute intracranial findings. CT/CT soft tissue neck w IV con IMPRESSION: There has been marked interval decrease in the size of previously demonstrated multilevel lymphadenopathy in the neck and axillary regions bilaterally. There is no cervical lymphadenopathy; there are small lymph nodes at multiple levels in the neck bilaterally.
[2023-08-22] MEDS: iohexoL 350 MG/ML 100 ML INFUS..BTL 65 ML IV (08:33)
== END 2023-08-22 07:51 | disposition home or self-care (01) ==
LOC: HO.CT 07:50
PROVIDERS: PCP Internal Medicine; Visit Provider Internal Medicine Medical Oncology
DX: C91.10 Chronic lymphocytic leukemia of B-cell type not having achieved remission (principal)
CPT/HCPCS: 70491; 71260; Q9967

== ENCOUNTER 2023-08-24 15:28 | Outpatient (AMB) | payer BC, SELFPAY ==
[2023-08-24 15:34] VITALS: BP 108/80; PULSE 100; O2SAT 95; BMI 32.4
--- NOTE | 2023-08-24 15:34 | A.OFFPC_ITS ---
Vital Signs 08/24/23 15:34 Height 6 ft 3 in Weight 259 lb BMI 32.4 BP 108/80 Blood Pressure Location Lt brachial Position Sitting Pulse 100 Pulse Source Pulse Oximeter Pulse Oximetry (%) 95 Oxygen Delivery Method Room Air Intake Visit Reasons: Persistent Cough Intake Note: pt states persistent cough [id number] with no relief. pt states chest pain and phlegm Metal Engraver Required: No Allergies No Known Allergies Allergy (Verified 08/24/23 15:39) Medication List - Last Reconciled 08/24/23 by Mylene Mari MD acalabrutinib maleate 100 mg PO DAILY acalabrutinib maleate 100 mg PO Q12H albuterol sulfate 90 mcg/actuation (Ventolin HFA) 2 puffs inhalation Q6H PRN allopurinol 300 mg PO DAILY azithromycin (Zithromax) For 250 mg dose pack: take 500 mg today (day 1), then 250 mg for 4 days (days 2-5) PO benzonatate 200 mg PO BID PRN blood pressure monitor (Blood Pressure Kit) As directed dexamethasone 4 mg PO BID ondansetron 8 mg PO Q8H tamsulosin 0.4 mg PO BEDTIME 90 days Tobacco use date assessed: 08/24/23 Dental Screening Dental Screen Date: 08/24/23 HPI Persistent Cough HPI Details 58-year-old obese male with CLL BPH neph rolithiasis last seen in March 2023. Patient has been follow-up with hematology oncology. CT of the chest done August No CT evidence of abnormally enlarged mediastinal and hilar lymph nodes. 2. Unchanged right upper lobe and bilat eral lower lobe micronodules less than 3 mm in size. 3. Interval development of coronal Plat elike atelectasis at anterior right lower lobe. 4. Interval development of Trace right pericardial effusion. 5. Interval complete resolution of bila teral axillary lymphadenopathy. Last seen by hematology oncology 07/16/2023 on chemotherapy. Patient also follows up with urology for the BPH and nephrolithiasis on tamsulosin 0.4 mg once a day. Patient comes in today for cough and chest pains for 3 weeks. no fevers, yellowish plegm, , no sob, no congestion, nobody sick at home patient feels the shortness of breath more when lying down to sleep [facility] Medical History Kidney stones BPH (benign prostatic hyperplasia) Leucocytosis Mass of left side of neck Frequency of micturition Renal calculus, right Peripheral vascular disease Thrombocytopenia Obesity (BMI 30-39.9) Right shoulder pain Surgical History Hx of colonoscopy History of lumbar surgery Hx of tonsillectomy Family History Mother Dementia Father Parkinson disease Prostate cancer Brother No problems noted. Brother Rectal cancer Sister No problems noted. Daughter No problems noted. Son No problems noted. Social History Household Members: Spouse Housing: House Alcohol intake: never Patient Tobacco Use Status: Never used Tobacco e-Cigarette/Vaping Use: Never Used Second Hand Smoke Exposure: No service: No Current occupational status: employed Current occupation: auto, referee, rock climbing, rt hand Cognitive needs: No Hearing needs: No Vision needs: Yes Questionnaire Thrive Questionnaire Date Thrive assessed: 08/24/23 AUDIT C Alcohol Use Questionnaire (AUDIT-C) 1. How often do you have a drink containing alcohol?: Monthly or less 2. How many drinks containing alcohol do you have on a typical day when you are drinking?: 1 or 2 3. How often do you have six or more drinks on one occasion?: Never Total Score: 1 HELENE-7 AMB Questionnaire HELENE-7 Date HELENE - 7 assessed: 08/24/23 Source: Developed by Drs. Jacobo Welch, Tiana Mojica, Robin Yang and colleagues, with an educational traci from [employer]. Physical exam (Primary Care) Vital Signs: Last Vital Signs Pulse 100 08/24/23 15:34 BP 108/80 08/24/23 15:34 Pulse Ox 95 08/24/23 15:34 Oxygen Delivery Method Room Air 08/24/23 15:34 BMI result Body Mass Index 32.4 Tobacco/Smoking Status: Tobacco use Status Tobacco use date assessed 08/24/23 08/24/23 15:35 Patient Tobacco Use Status Never used Tobacco 08/24/23 15:35 e-Cigarette/Vaping Use Never Used 08/24/23 15:35 Thrive Assessment: Date of Thrive Assessment Date Thrive assessed 08/24/23 08/24/23 15:35 Const General: alert; No acute distress Eyes Conjunctivae: conjunctivae normal Resp Other: Noted wheezing and rhonchi bilaterally right more than the left Cardio Rate: regular rate Rhythm: regular rhythm GI Inspection: Yes normal to inspection Extrem General: Yes normal to inspection and No edema Assessment and Plan Assessment & Plan (1) CLL (chronic lymphocytic leukemia): Comment: December 2022 Code(s): C91.10 - Chronic lymphocytic leukemia of B-cell type not having achieved remission Plan: Patient presently on chemotherapy under Hematology-Oncology (2) Bilateral renal stones: Comment: Bilateral nonobstructing nephrolithiasis. * Left renal cysts with peripheral calcifications measuring up to 1.9 cm, almost certainly benign. * Prostatomegaly with large postvoid residual of 127 mL. October 2022 Code(s): N20.0 - Calculus of kidney Plan: Advised to keep well hydrated (3) BPH loc w urin obs/LUTS: Code(s): N40.1 - Benign prostatic hyperplasia with lower urinary tract symptoms Plan: Patient follows up with urology and placed on tamsulosin. (4) Asthmatic bronchitis: Code(s): J45.909 - Unspecified asthma, uncomplicated Medications: New benzonatate 200 mg PO BID PRN 14 caps 0RF cough J45.909 - Unspecified asthma, uncomplicated azithromycin (Zithromax) For 250 mg dose pack: take 500 mg today (day 1), then 250 mg for 4 days (days 2-5) PO 6 tabs 0RF J45.909 - Unspecified asthma, uncomplicated albuterol sulfate 90 mcg/actuation (Ventolin HFA) 2 puffs inhalation Q6H PRN 8.5 grams 0RF shortness of breath or wheezing J45.909 - Unspecified asthma, unc omplicated Coding Level of Care Code Est Pt Level 4 (54276) Diagnoses CLL (chronic lymphocytic leukemia) C91.10 Bilateral renal stones N20.0 BPH loc w urin obs/LUTS N40.1 Asthmatic bronchitis J45.909
== END 2023-08-24 16:25 | disposition home or self-care (01) ==
PROVIDERS: PCP Internal Medicine; Visit Provider Internal Medicine
DX: C91.10 Chronic lymphocytic leukemia of B-cell type not having achieved remission (principal); N20.0 Calculus of kidney; N40.1 Benign prostatic hyperplasia with lower urinary tract symptoms; J45.909 Unspecified asthma, uncomplicated
CPT/HCPCS: 99214

== ENCOUNTER 2023-09-12 09:49 | Outpatient (AMB) | payer BC, SELFPAY ==
[2023-09-12 09:52] VITALS: BP 128/68; PULSE 66; O2SAT 95; BMI 33.2
--- NOTE | 2023-09-12 09:52 | A.OFFPC_ITS ---
Vital Signs 09/12/23 09:52 Height 6 ft 3 in Weight 266 lb BMI 33.2 BP 128/68 Blood Pressure Location Lt brachial Position Sitting Pulse 66 Pulse Source Pulse Oximeter Pulse Oximetry (%) 95 Oxygen Delivery Method Room Air Intake Visit Reasons: CLL, obesity, BPH Allergies No Known Allergies Allergy (Verified 09/12/23 09:53) Medication List - Last Reconciled 09/12/23 by Mylene Mari MD acalabrutinib maleate 100 mg PO Q12H albuterol sulfate 90 mcg/actuation (Ventolin HFA) 2 puffs inhalation Q6H PRN allopurinol 300 mg PO DAILY blood pressure monitor (Blood Pressure Kit) As directed dexamethasone 4 mg PO BID erythromycin 0.5 inches ophthalmic (eye) BID ondansetron 8 mg PO Q8H tamsulosin 0.4 mg PO BEDTIME 90 days Tobacco use date assessed: 08/24/23 Dental Screening Dental Screen Date: 09/12/23 Did you have a dental visit in the last 12 months?: Yes Did you have a dental problem in the last 6 months where you did not have access to dental care?: No Was dental information given to patient?: Patient has dentist HPI CLL, obesity, BPH HPI Details 58-year-old male with CLL nephrolithiasi s BPH last seen in August 2023 having asthmatic bronchitis. Patient is here for follow-up. Patient's colonoscopy is up-to-date January 2023 with tubular adenoma patient follows up with Hematology-Oncology last seen in July 2023 CT scan done in August [address] evidence of abnormally enlarged mediastinal and hilar lymph nodes. 2. Unchanged right upper lobe and bilat eral lower lobe micronodules less than 3 mm in size. 3. Interval development of coronal Plat elike atelectasis at anterior right lower lobe. 4. Interval development of Trace right pericardial effusion. 5. Interval complete resolution of bila teral axillary lymphadenopathy. And the CT scan of the neck colonThere has been marked interval decrease in the size of previously demonstrated multilevel lymphadenopathy in the neck and axillary regions bilaterally. There is no cervical lymphadenopathy; there are small lymph nodes at multiple levels in the neck bilaterally. Patient did see Urology also in July on tamsulosin 0.4 mg once a day post residual void 0 7th treatment last sunday and will have blood work next month. breathing is stable. but does have cough- today is good [facility] Medical History (Updated 09/12/23 @ 10:03 by Mylene Mari MD) Asthmatic bronchitis Screening PSA (prostate specific antigen) Kidney stones BPH (benign prostatic hyperplasia) Leucocytosis Mass of left side of neck Frequency of micturition Renal calculus, right Peripheral vascular disease Thrombocytopenia Obesity (BMI 30-39.9) Right shoulder pain Surgical History Hx of colonoscopy History of lumbar surgery Hx of tonsillectomy Family History Mother Dementia Father Parkinson disease Prostate cancer Brother No problems noted. Brother Rectal cancer Sister No problems noted. Daughter No problems noted. Son No problems noted. Social History Household Members: Spouse Housing: House Alcohol intake: never Patient Tobacco Use Status: Never used Tobacco e-Cigarette/Vaping Use: Never Used Second Hand Smoke Exposure: No service: No Current occupational status: employed Current occupation: auto, referee, rock climbing, rt hand Cognitive needs: No Hearing needs: No Vision needs: Yes Questionnaire PHQ-9 Over the last 2 weeks, how often have you been bothered by any of the following problems? 1. Little interest or pleasure in doing things: not at all 2. Feeling down, depressed, or hopeless: not at all 3. Trouble falling or staying asleep, or sleeping too much: not at all 4. Feeling tired or having little energy: not at all 5. Poor appetite or overeating: not at all 6. Feeling bad about yourself - or that you are a failure or have let yourself or your family down: not at all 7. Trouble concentrating on things, such as reading the newspaper or watching television: not at all 8. Moving or speaking so slowly that other people could have noticed. Or the opposite - being so fidgety or restless that you have been moving around a lot more than usual: not at all 9. Thoughts that you would be better off or of hurting yourself in some way: not at all Total score: 0 Depression Screening Interpretation: Negative Depression Screening Done: Yes Source: Developed by Drs. Jacobo Welch, Robin Terry and colleagues, with an educational traci from [employer]. Thrive Questionnaire Date Thrive assessed: 08/24/23 AUDIT C Alcohol Use Questionnaire (AUDIT-C) 1. How often do you have a drink containing alcohol?: Monthly or less 2. How many drinks containing alcohol do you have on a typical day when you are drinking?: 1 or 2 3. How often do you have six or more drinks on one occasion?: Never Total Score: 1 HELENE-7 AMB Questionnaire HELENE-7 Date HELENE - 7 assessed: 08/24/23 Source: Developed by Drs. Jacobo Welch, Tiana Mojica, Robin Yang and colleagues, with an educational traci from [employer]. Physical exam (Primary Care) Vital Signs: Last Vital Signs Pulse 66 09/12/23 09:52 BP 128/68 09/12/23 09:52 Pulse Ox 95 09/12/23 09:52 Oxygen Delivery Method Room Air 09/12/23 09:52 BMI result Body Mass Index 33.2 Tobacco/Smoking Status: Tobacco use Status Tobacco use date assessed 08/24/23 09/12/23 09:59 Patient Tobacco Use Status Never used Tobacco 09/12/23 09:59 e-Cigarette/Vaping Use Never Used 09/12/23 09:59 PHQ-9: PHQ-9 Score PHQ-9: Total score 0 09/12/23 09:59 Depression Screening Interpretation: Negative Thrive Assessment: Date of Thrive Assessment Date Thrive assessed 08/24/23 09/12/23 09:59 Const General: alert; No acute distress Eyes Conjunctivae: conjunctivae normal Resp Auscultation: clear to auscultation bilaterally Cardio Rate: regular rate Rhythm: regular rhythm GI Inspection: Yes normal to inspection Extrem General: Yes normal to inspection and No edema Assessment and Plan Assessment & Plan (1) CLL (chronic lymphocytic leukemia): Comment: December 2022 Code(s): C91.10 - Chronic lymphocytic leukemia of B-cell type not having achieved remission Plan: Patient on chemotherapy under Hematology-Oncology CT scan done with no evidence of lymph node enlargement (2) BPH loc w urin obs/LUTS: Code(s): N40.1 - Benign prostatic hyperplasia with lower urinary tract symptoms Plan: Follows up with urology and has had tamsulosin (3) Obesity (BMI 30.0-34.9): Code(s): E66.9 - Obesity, unspecified Plan: Continue with diet and exercise Medications: Refilled tamsulosin 0.4 mg PO BEDTIME 90 caps 3RF 90 days N40.1 - Benign prostatic hyperplasia with lower urinary tract symptoms Coding Level of Care Code Est Pt Level 4 (86055) Diagnoses CLL (chronic lymphocytic leukemia) C91.10 BPH loc w urin obs/LUTS N40.1 Obesity (BMI 30.0-34.9) E66.9
== END 2023-09-12 12:38 | disposition home or self-care (01) ==
PROVIDERS: PCP Internal Medicine; Visit Provider Internal Medicine
DX: C91.10 Chronic lymphocytic leukemia of B-cell type not having achieved remission (principal); N40.1 Benign prostatic hyperplasia with lower urinary tract symptoms; E66.9 Obesity, unspecified; Z68.33 Body mass index [BMI] 33.0-33.9, adult
CPT/HCPCS: 99214

== ENCOUNTER → 2023-10-30 07:57 | Outpatient (REF) | payer BC, SELFPAY ==
--- NOTE | 2023-10-30 07:59 | CA_ITS ---
Transthoracic Echocardiogram Patient (Last, First, Middle): Mitchel Rojo M Gender: Male Date of : 1965 Age: 58 Procedure Date: 10/30/2023 Procedure Type: Transthoracic Echocardiogram Location: OP Height: 190.5 cm Weight: 72.12 kg BSA: 1.99 m2 Heart Rate: bpm BP: 134 / 70 mmHg Top Frame Maker: SHADI Referring MD: Francie Dee MD Symptoms: CLL. Pericardial effusion. Study Quality: Fair ECG Rhythm: Sinus Conclusions: - The left ventricular systolic function is normal. The calculated ejection fraction is 61% by biplane method. - There is mildly increased left ventricular wall thickness. - No obvious valvular pathology seen on this study. - There is mild dilatation of the ascending aorta measuring 4.00 cm. Findings Left Ventricle Normal left ventricular cavity size. There is mildly increased left ventricular wall thickness. The left ventricular systolic function is normal. The calculated ejection fraction is 61% by biplane method. There is no evidence of regional wall motion abnormalities. Diastolic function is normal for age. LV peak GLS -17%; ?underestimate. Right Ventricle Normal right ventricular cavity size and systolic function. Atria Both atria are normal in size. Aortic Valve There is a normal trileaflet aortic valve. There is no aortic valve stenosis. There is no aortic valve regurgitation. Mitral Valve The mitral valve appears normal. There is no mitral valve regurgitation. There is no mitral valve stenosis. Pulmonic Valve The pulmonic valve is likely normal. Tricuspid Valve There is no tricuspid valve regurgitation. Tricuspid regurgitation envelope is inadequate for calculation of right ventricular systolic pressure. Great Vessels There is mild dilatation of the ascending aorta measuring 4.00 cm. Venous The inferior vena cava is normal in size and collapses greater than 50% with inspiration. Pericardium/Pleural There is no evidence of pericardial effusion. Prior Study Comparison No prior study available for comparison. Recommendations, Care & Conclusions No obvious valvular pathology seen on this study. Measurements 2D Linear Measurements IVSd: 1.11 0.6-0.9/0.6-1.0 cm LVIDd: 4.90 3.9-5.3/4.2-5.9 cm LVIDd Index: 2.46 2.4-3.2/2.2-3.1 cm/m2 LVIDs: 3.19 2.0-3.6 cm LVPWd: 1.35 0.7-1.1 cm LA Diam: 3.30 2.7-3.8/3.0-4.0 cm LAIDs Index: 1.66 1.5-2.3 cm/m2 LV Mass: 292.28 67-162/88-224 g LV Mass Index: 146.87 43-95/49-115 g/m2 LVOT Diam: 2.20 3.0+(-)1.3 cm 2D Systolic Function EF 4C: 53.80 >55% EF 2C: 66.70 >55% EF BiP: 60.70 >55% Mitral Valve MV Pk E: 0.63 MV PK A: 0.44 MV Decel Time: 293.00 E/A: 1.40 E'Lateral: 11.00 E'Medial: 9.57 E/E' Med: 6.60 E/E' Lat: 5.80 PHT: 86.00 MVA PHT: 2.56 Decel [place]: 2.17 Aortic Valve AoV Pk Davi: 1.29 AoV Mn Davi: 0.94 AoV VTI: 0.26 AoV Pk Grad: 7.00 Aov Mn Grad: 4.00 TRINA Cont.VTI: 2.95 LVOT LVOT Pk Davi: 0.80 LVOT Mn Davi: 0.58 LVOT VTI: 0.20 LVOT Pk Grad: 3.00 LVOT Mn Grad: 2.00 LVOT Diam: 2.20 LVOT Area: 3.80 Diastolic Function MV Pk E: 0.63 MV Pk A: 0.44 E/A: 1.40 E'Medial: 9.57 E/E' Med: 6.60 E' Laterial: 11.00 E/E' Lat: 5.80 Right Ventricle TAPSE (mm): 32.50 TVS' Davi: 15.60 Tricuspid Valve RA Press: 3.00 Great Vessels Aorta Sinus of Valsalva: 3.78 2.0-3.[address] [place]: 2.64 1.7-3.4 cm Ao Asc: 4.00 2.1-3.4 cm Updated in Other Vendor System with Status of Final Amanuel Do MD electronically signed on 10/31/2023 12:32:22 PM with status of Final
== END ==
LOC: HO.CARD 07:57
PROVIDERS: PCP Internal Medicine; Visit Provider Internal Medicine Medical Oncology
DX: I31.39 Other pericardial effusion (noninflammatory) (principal)
CPT/HCPCS: 93306; 93356

== ENCOUNTER → 2023-10-30 07:59 | Outpatient (BNV) | payer BC, SELFPAY | PROVIDERS: PCP Internal Medicine; Visit Provider Internal Medicine | DX: I71.21 Aneurysm of the ascending aorta, without rupture (principal) | CPT/HCPCS: 93306; 93356 ==

== ENCOUNTER 2023-11-16 09:37 | Outpatient (AMB) | payer BC, SELFPAY ==
--- NOTE | 2023-11-16 09:42 | MHC.OFFVIS ---
Vital Signs 11/16/23 09:44 Height 6 ft 3 in Weight 260 lb 2.327 oz BMI 32.5 BP 118/66 Blood Pressure Location Lt brachial Position Sitting Pulse 67 Pulse Source Doppler Pulse Oximetry (%) 97 Oxygen Delivery Method Room Air Intake Visit Reasons: Shortness of breath Allergies No Known Allergies Allergy (Verified 11/16/23 09:47) HPI HPI Shortness of breath: Details: 58-year-old gentleman, nonsmoker, with underlying CLL under oncology care referred for evaluation midsternal pain and productive cough. Patient states that he has been having intermittent midsternal pain with deep inspirations only ongoing for several months. Pain is intermittent reproducible with taking a deep breath, but with now as activity. Patient also complain of cough productive of yellowish sputum ongoing for several weeks. He denies prior personal or family history of lung disease. 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 He does have a dog as a pet. Patient denies significant environmental allergies. Patient did have an essentially normal CT chest in August of 2023. [facility] Medical History (Updated 11/16/23 @ 10:11 by Nando Aguilar MD) Asthmatic bronchitis Screening PSA (prostate specific antigen) Kidney stones BPH (benign prostatic hyperplasia) Leucocytosis Mass of left side of neck Frequency of micturition Renal calculus, right Peripheral vascular disease Thrombocytopenia Obesity (BMI 30-39.9) Right shoulder pain Surgical History Hx of colonoscopy History of lumbar surgery Hx of tonsillectomy Family History Mother Dementia Father Parkinson disease Prostate cancer Brother No problems noted. Brother Rectal cancer Sister No problems noted. Daughter No problems noted. Son No problems noted. Social History Household Members: Spouse Housing: House Alcohol intake: never Patient Tobacco Use Status: Never used Tobacco e-Cigarette/Vaping Use: Never Used Second Hand Smoke Exposure: No service: No Current occupational status: employed Current occupation: auto, referee, rock climbing, rt hand Cognitive needs: No Hearing needs: No Vision needs: Yes Review of Systems Card Denies dyspnea and Denies dyspnea on exertion Resp Reports cough, Reports excessive phlegm production, Reports pain on inspiration (Intermittent), Denies dyspnea, Denies dyspnea on exertion and Denies wheezing Aller/Immun Denies wheezing Physical Exam Vital Signs: Last Vital Signs Pulse 67 11/16/23 09:44 BP 118/66 11/16/23 09:44 Pulse Ox 97 11/16/23 09:44 Oxygen Delivery Method Room Air 11/16/23 09:44 BMI result Body Mass Index 32.5 Const General: no acute distress and alert Nutritional Appearance: obese Orientation/consciousness: Other orientation findings ( oriented) HEENT Head: Yes atraumatic Eyes General: appearance normal, both eyes and all related structures Sclerae: sclerae normal EOM: EOMs intact bilaterally Neck Neck: Yes supple Lymphatic: no lymphadenopathy noted Resp Effort & Inspection: normal respiratory effort and no use of accessory muscles Auscultation: clear to auscultation bilaterally Cardio Rate: regular rate Rhythm: regular rhythm Heart sounds: no gallops, no murmurs and no rubs Skin General skin exam: other ( warm) Extrem General: No clubbing, No cyanosis and No edema Assessment & Plan Assessment & Plan (1) Bronchitis: Code(s): J40 - Bronchitis, not specified as acute or chronic Category: Medical Plan: Appears to have underlying bronchitis. Will treat with a course of Augmentin. (2) Midsternal chest pain: Code(s): R07.89 - Other chest pain Category: Medical Plan: Appears to be musculoskeletal in nature. CT chest results reviewed and now structural reason visualized. Patient has been advised to use p.r.n. NSAIDs. Medications: New amoxicillin-pot clavulanate 875-125 mg 1 tab PO BID 20 tabs 0RF Coding Level of Care Code New Pt Level 4 (68098) Diagnoses Bronchitis J40 Midsternal chest pain R07.89
[2023-11-16 09:44] VITALS: BP 118/66; PULSE 67; O2SAT 97; BMI 32.5
== END 2023-11-16 10:50 | disposition home or self-care (01) ==
PROVIDERS: PCP Internal Medicine; Referring Provider Internal Medicine Medical Oncology; Visit Provider Internal Medicine Pulmonary Disease
DX: J40 Bronchitis, not specified as acute or chronic (principal); R07.89 Other chest pain
CPT/HCPCS: 99204

== ENCOUNTER → 2023-11-16 09:37 | Outpatient (BNVA) | payer BC, SELFPAY | PROVIDERS: PCP Internal Medicine; Referring Provider Internal Medicine Medical Oncology; Visit Provider Internal Medicine Pulmonary Disease ==

== ENCOUNTER 2024-01-12 12:14 | Outpatient (AMB) | payer BC, SELFPAY ==
--- NOTE | 2024-01-12 12:15 | MHC.OFFWIV ---
Intake Vital Signs 01/12/24 12:16 Height 6 ft 3 in Weight 247 lb BMI 30.9 BP 122/62 Blood Pressure Location Rt brachial Position Sitting Pulse 91 Pulse Source Pulse Oximeter Temp 98.2 F Temp Source Oral Pulse Oximetry (%) 96 Oxygen Delivery Method Room Air Intake Visit Reasons: EP mucus ?respiratory infection Intake Note: Pt is here toay c/o coughing up mucus Patient Tobacco Use Status: Never used Tobacco Allergies No Known Allergies Allergy (Verified 01/12/24 12:16) Medication List - Last Reconciled 01/12/24 by Luciano Briggs MD acalabrutinib maleate 100 mg PO Q12H blood pressure monitor (Blood Pressure Kit) As directed tamsulosin 0.4 mg PO BEDTIME 90 days HPI EP mucus ?respiratory infection HPI Details 58-year-old male with CLL presents with feverishness, productive cough and mild fatigue x 3 days. No chest pain No nausea or vomiting PFSH Medical History (Updated 01/12/24 @ 12:38 by Luciano Briggs MD) Asthmatic bronchitis Screening PSA (prostate specific antigen) Kidney stones BPH (benign prostatic hyperplasia) Leucocytosis Mass of left side of neck Frequency of micturition Renal calculus, right Peripheral vascular disease Thrombocytopenia Obesity (BMI 30-39.9) Right shoulder pain Surgical History Hx of colonoscopy History of lumbar surgery Hx of tonsillectomy Family History Mother Dementia Father Parkinson disease Prostate cancer Brother No problems noted. Brother Rectal cancer Sister No problems noted. Daughter No problems noted. Son No problems noted. Social History Household Members: Spouse Housing: House Alcohol intake: never Patient Tobacco Use Status: Never used Tobacco e-Cigarette/Vaping Use: Never Used Second Hand Smoke Exposure: No service: No Current occupational status: employed Current occupation: auto, referee, rock climbing, rt hand Cognitive needs: No Hearing needs: No Vision needs: Yes Review of Systems Const Details: See HPI Physical Exam Vital Signs: Last Vital Signs Temp 98.2 F 01/12/24 12:16 Pulse 91 01/12/24 12:16 BP 122/62 01/12/24 12:16 Pulse Ox 96 01/12/24 12:16 Oxygen Delivery Method Room Air 01/12/24 12:16 BMI result Body Mass Index 30.9 Const General: no acute distress and well developed Nutritional Appearance: well nourished Orientation/consciousness: patient oriented x3 HEENT Other: Moderate nasal congestion with clear discharge. No blood or pus. No sinus pain or pressure TMs with mild erythema bilaterally but no fluid or pus No cervical LAD Posterior nasopharynx with postnasal drip and mild injection but no patchy exudates or vesicles Head: Yes normocephalic and Yes atraumatic Eyes General: appearance normal, both eyes and all related structures Pupils: Equal, round and reactive pupils present EOM: EOMs intact bilaterally Resp Other: Coarse breath sounds and upper airway secretions No diminished breath sounds, crackles or rhonchi Effort & Inspection: normal respiratory effort Auscultation: clear to auscultation bilaterally Cardio Rate: regular rate Rhythm: regular rhythm Heart sounds: S1 normal heart sound present, S2 normal heart sound present, no gallops, no murmurs and no rubs Neuro General: patient oriented x3 and gait normal Cranial nerves: Yes Equal, round and reactive pupils present Psych Affect: normal affect Assessment & Plan Assessment & Plan (1) Bronchitis: Code(s): J40 - Bronchitis, not specified as acute or chronic Plan: Likely bronchitis or possible walking pneumonia Patient is on BTK inhibitor for CLL and this could increase potential for pneumonias Will give him a Z-Bruce Hydrate well Get plenty of rest Advised he discuss with his Hematology-senior computer specialist if he should hold above BTK inhibitor while sick. (2) Cough: Code(s): R05.9 - Cough, unspecified Plan: Can not rule out COVID/flu/RSV infection so sending nasal swab to lab. He will be called if action is required Orders: Orders SARS-CoV2/FLU/RSV Today R05.9 - Cough, unspecified, Z20.822 - Contact with and (suspected) exposure to COVID-19 Medications: New azithromycin (Zithromax Z-Bruce) take 500 mg today (day 1), then 250 mg for 4 days (days 2-5) PO 5 days 6 tabs 0RF R05.9 - Cough, unspecified Coding Level of Care Code Est Pt Level 3 (31204) Diagnoses Bronchitis J40 Cough R05.9
[2024-01-12 12:16] VITALS: BP 122/62; PULSE 91; TEMP 36.8; O2SAT 96; BMI 30.9
== END 2024-01-12 14:06 | disposition home or self-care (01) ==
PROVIDERS: PCP Internal Medicine; Visit Provider Family Medicine
DX: J40 Bronchitis, not specified as acute or chronic (principal); R05.9 Cough, unspecified
CPT/HCPCS: 99213

== ENCOUNTER 2024-01-12 12:38 | Outpatient (REF) | payer BC, SELFPAY | END 2024-01-12 12:39 | disposition home or self-care (01) | LOC: HO.LAB 12:38 | PROVIDERS: Visit Provider Family Medicine | DX: Z13.89 Encounter for screening for other disorder (principal) ==

== ENCOUNTER 2024-01-29 16:01 | Outpatient (AMB) | payer BC, SELFPAY ==
[2024-01-29 16:02] VITALS: BP 130/82; PULSE 68; TEMP 37; O2SAT 96; BMI 31.1
--- NOTE | 2024-01-29 16:02 | A.OFFPC_ITS ---
Vital Signs 01/29/24 16:02 Height 6 ft 3 in Weight 249 lb 0.4 oz BMI 31.1 BP 130/82 Blood Pressure Location Lt brachial Position Sitting Pulse 68 Pulse Source Pulse Oximeter Temp 98.6 F Temp Source Oral Pulse Oximetry (%) 96 Oxygen Delivery Method Room Air Intake Visit Reasons: Ears clogged, congested Intake Note: pt c/o congestion, SOB, chest pain X2 weeks Customer Service Administrator Required: No Allergies No Known Allergies Allergy (Verified 01/29/24 16:03) Medication List - Last Reconciled 01/29/24 by Alyx Bello PA-C acalabrutinib maleate 100 mg PO Q12H benzonatate 100 mg PO BID PRN blood pressure monitor (Blood Pressure Kit) As directed guaifenesin 200 mg PO QID PRN tamsulosin 0.4 mg PO BEDTIME 90 days Tobacco use date assessed: 08/24/23 Dental Screening Dental Screen Date: 09/12/23 HPI Ears clogged, congested HPI Details 58-year-old male with past medical histo ry BPH, chronic lymphocytic leukemia, and elevated blood pressure last seen by Dr. Mari 08/2023 coming in for routine ear cleaning. Patient was seen by pulmonology 11/16/2023 found to have bronchitis and treated with Augmentin. Seen in walk-in clinic 01/12/2024 found to have bronchitis or possible walking pneumonia and treated with azithromycin. Patient was seen by Hematology Oncology 12/10/2023 we will continue on acalabrutinib at home with monthly labs and follow up in 3 months. Patient has been having productive cough with clear/yellow sputum ongoing for the last month. He has completed a course of Augmentin and azithromycin with mild improvement of symptoms but is still having continued cough. Today he tells us his cough has continued and he now has a feeling of ears clogged which is new. [facility] Medical History (Updated 01/12/24 @ 12:38 by Luciano Briggs MD) Asthmatic bronchitis Screening PSA (prostate specific antigen) Kidney stones BPH (benign prostatic hyperplasia) Leucocytosis Mass of left side of neck Frequency of micturition Renal calculus, right Peripheral vascular disease Thrombocytopenia Obesity (BMI 30-39.9) Right shoulder pain Surgical History Hx of colonoscopy History of lumbar surgery Hx of tonsillectomy Family History Mother Dementia Father Parkinson disease Prostate cancer Brother No problems noted. Brother Rectal cancer Sister No problems noted. Daughter No problems noted. Son No problems noted. Social History Household Members: Spouse Housing: House Alcohol intake: never Patient Tobacco Use Status: Never used Tobacco e-Cigarette/Vaping Use: Never Used Second Hand Smoke Exposure: No service: No Current occupational status: employed Current occupation: auto, referee, rock climbing, rt hand Cognitive needs: No Hearing needs: No Vision needs: Yes Questionnaire Thrive Questionnaire Date Thrive assessed: 08/24/23 AUDIT C Alcohol Use Questionnaire (AUDIT-C) 1. How often do you have a drink containing alcohol?: Monthly or less 2. How many drinks containing alcohol do you have on a typical day when you are drinking?: 1 or 2 3. How often do you have six or more drinks on one occasion?: Never Total Score: 1 HELENE-7 AMB Questionnaire HELENE-7 Date HELENE - 7 assessed: 08/24/23 Source: Developed by Drs. Jacobo Welch, Tiana Mojica, Robin Yang and colleagues, with an educational traci from [employer]. Review of Systems Const Denies body aches, Denies chills, Denies fever(s), Denies headache(s) and Denies poor appetite Eyes Reports no additional complaints ENT Denies dysphagia, Denies dizziness and Denies headache(s) Card Denies chest pain, Denies syncope, Denies lightheadedness and Denies dyspnea Resp Reports cough, Reports pain with cough and Denies dyspnea GI Denies dysphagia and Denies nausea Reports no additional complaints Musc Reports no additional complaints and Denies abnormal gait Skin/Breast Reports system reviewed and no additional complaints, except as documented Neuro Denies abnormal gait, Denies dizziness, Denies syncope and Denies headache(s) Psych Reports no additional complaints Physical exam (Primary Care) Vital Signs: Oxygen Delivery Method Room Air 01/29/24 16:02 BMI result Body Mass Index 31.1 Tobacco/Smoking Status: Tobacco use Status Tobacco use date assessed 08/24/23 01/12/24 12:13 Patient Tobacco Use Status Never used Tobacco 01/12/24 12:22 e-Cigarette/Vaping Use Never Used 01/12/24 12:13 Thrive Assessment: Date of Thrive Assessment Date Thrive assessed 08/24/23 01/12/24 12:13 Const General: cooperative, healthy appearing, comfortable and no acute distress Orientation/consciousness: patient oriented x3 HENMT Head: Yes normal to inspection and Yes normocephalic Ears: hearing grossly normal bilaterally, TM's normal bilaterally and EAC's normal General nose exam: Normal external nose present Face and sinus: Yes sinuses nontender Mouth: Normal oral and palatal mucosa present Throat: Yes posterior oropharynx normal Eyes General: appearance normal, both eyes and all related structures Conjunctivae: conjunctivae normal Neck Neck: Yes full ROM and Yes no lymphadenopathy Resp Effort & Inspection: normal respiratory effort Auscultation: clear to auscultation bilaterally, no crackles, no rales, no rhonchi and no wheezes Cardio Rate: regular rate Rhythm: regular rhythm Skin General skin exam: no rashes or lesions noted Neuro General: patient oriented x3 Gait exam (Neuro): Normal gait present Extrem General: Yes normal to inspection, Yes full ROM and No edema Psych Affect: normal affect Attitude: cooperative Insight: Good insight present (Psych) Judgement: Good judgement present (Psych) Assessment and Plan Assessment & Plan (1) Cough: Code(s): R05.9 - Cough, unspecified Plan: Patient has been having ongoing cough the last month was treated with 2 courses of antibiotics Augmentin and azithromycin. Lungs are clear to auscultation today with no evidence wheezing or consolidation. Ordered for chest x-ray to evaluate for pneumonia. Benzonatate and guaifenesin sent to pharmacy patient may trial the medications to see which one works best for him. Advised patient to follow up if his cough worsens or he begins to have fevers. Will call patient with results of CXR. Plan This note was constructed using voice recognition software. While every effort has been made to ensure accuracy and biomass plant technician, still areas may have been included sometimes these areas may affect the content or meeting of the given symptoms. Total time spent caring for the patient today was 30 minutes. This includes time spent before the visit reviewing the chart, time spent during the visit, and time spent after the visit and documentation. Orders: Orders XR chest 2V Today R05.9 - Cough, unspecified Medications: New benzonatate 100 mg PO BID PRN 30 caps 0RF cough guaifenesin 200 mg PO QID PRN 20 tabs 0RF cough Coding Level of Care Code Est Pt Level 4 (04708) Diagnoses Cough R05.9
== END 2024-01-29 16:26 | disposition home or self-care (01) ==
PROVIDERS: PCP Internal Medicine
DX: R05.9 Cough, unspecified (principal)
CPT/HCPCS: 99214

== ENCOUNTER 2024-01-29 16:32 | Outpatient (REF) | payer BC, SELFPAY ==
--- NOTE | ~2024-01-29 | XR_ITS ---
EXAMINATION: XR CHEST CLINICAL INFORMATION: Cough, unspecified. COMPARISON: CT chest 08/22/2023. Chest radiograph 11/06/2015. TECHNIQUE: 2 views of the chest were obtained. FINDINGS: There is no gross pneumothorax. Lungs are well inflated. Heart size is normal. Degenerative changes in the thoracic spine. Trace left pleural effusion. Patchy and streaky left basilar opacities likely represent subsegmental atelectasis/scar, although an infectious/inflammatory process should also be considered in the appropriate clinical setting. XR/XR chest 2V IMPRESSION: Trace left pleural effusion. Patchy and streaky left basilar opacities likely represent subsegmental atelectasis/scar, although an infectious/inflammatory process should also be considered in the appropriate clinical setting.
== END 2024-01-29 16:33 | disposition home or self-care (01) ==
LOC: HO.XRAY 16:32
PROVIDERS: PCP Internal Medicine
DX: R05.9 Cough, unspecified (principal)
CPT/HCPCS: 71046

== ENCOUNTER 2024-03-14 08:58 | Outpatient (AMB) | payer BC, SELFPAY ==
[2024-03-14 09:00] VITALS: BP 130/72; PULSE 80; O2SAT 98; BMI 30.5
--- NOTE | 2024-03-14 09:00 | MHC.PC.OV ---
Vital Signs 03/14/24 09:00 Height 6 ft 3 in Weight 244 lb BMI 30.5 BP 130/72 Blood Pressure Location Lt brachial Position Sitting Pulse 80 Pulse Source Pulse Oximeter Pulse Oximetry (%) 98 Oxygen Delivery Method Room Air Intake Visit Reasons: Annual Exam Allergies No Known Allergies Allergy (Verified 03/14/24 09:00) Medication List - Last Reconciled 03/14/24 by Mylene Mari MD acalabrutinib maleate 100 mg PO Q12H blood pressure monitor (Blood Pressure Kit) As directed tamsulosin 0.4 mg PO BEDTIME 90 days Tobacco use date assessed: 08/24/23 Dental Screening Dental Screen Date: 09/12/23 HPI Annual Exam HPI Details 59-year-old obese male with nephrolithiasis BPH CLL coming in for physical exam last seen in December having a cough. Patient is up-to-date with colonoscopy.. Chest x-ray done in February 17 showed trace left pleural effusion, with basilar facet sees in the left representing atelectasis/inflammatory. Meanwhile follows up with Hematology-Oncology last seen in November continuing with chemotherapy. Patient had an echocardiogram in October 30The left ventricular systolic function is normal. The calculated ejection fraction is 61% by biplane method. - There is mildly increased left ventricular wall thickness. - No obvious valvular pathology seen on this study. - There is mild dilatation of the ascending aorta measuring 4.00 cm. PAtient continuous to cough productive all day long still, no fevers , had sore throat. [facility] Medical History (Updated 03/14/24 @ 09:25 by Mylene Mari MD) Asthmatic bronchitis Screening PSA (prostate specific antigen) Kidney stones BPH (benign prostatic hyperplasia) Leucocytosis Mass of left side of neck Frequency of micturition Renal calculus, right Peripheral vascular disease Thrombocytopenia Obesity (BMI 30-39.9) Right shoulder pain Surgical History Hx of colonoscopy History of lumbar surgery Hx of tonsillectomy Family History Mother Dementia Father Parkinson disease Prostate cancer Brother No problems noted. Brother Rectal cancer Sister No problems noted. Daughter No problems noted. Son No problems noted. Social History Household Members: Spouse Housing: House Alcohol intake: never Patient Tobacco Use Status: Never used Tobacco Tobacco use type: Cigarette e-Cigarette/Vaping Use: Never Used Second Hand Smoke Exposure: No service: No Current occupational status: employed Current occupation: auto, referee, rock climbing, rt hand Cognitive needs: No Hearing needs: No Vision needs: Yes Questionnaire PHQ-9 Over the last 2 weeks, how often have you been bothered by any of the following problems? 1. Little interest or pleasure in doing things: not at all 2. Feeling down, depressed, or hopeless: not at all 3. Trouble falling or staying asleep, or sleeping too much: not at all 4. Feeling tired or having little energy: not at all 5. Poor appetite or overeating: not at all 6. Feeling bad about yourself - or that you are a failure or have let yourself or your family down: not at all 7. Trouble concentrating on things, such as reading the newspaper or watching television: not at all 8. Moving or speaking so slowly that other people could have noticed. Or the opposite - being so fidgety or restless that you have been moving around a lot more than usual: not at all 9. Thoughts that you would be better off or of hurting yourself in some way: not at all Total score: 0 Depression Screening Interpretation: Negative Depression Screening Done: Yes Source: Developed by Drs. Jacobo Welch, Tiana Mojica, Robin Yang and colleagues, with an educational traci from [employer]. Thrive Questionnaire Date Thrive assessed: 08/24/23 I am a: Patient What is your living situation today?: I have a steady place to live Within the past 12 months, did the food you bought not last and you didn't have the money to get more?: Never true Within the past 12 months, did you worry whether your food would run out before you got money to buy more?: Never true Do you have trouble paying for medicines?: No Do you have trouble getting transportation to medical appointments?: No Do you have trouble paying your heating and electricity bill?: No Do you have trouble taking care of your child, family member or friend?: No Do you have trouble with day-to-day activities such as bathing, preparing meals, shopping, managing finances, etc.?: No Are you currently unemployed and looking for a job?: No Are you interested in more education?: No Please select the resources that you would like help with: None Currently or been in a relationship where the following occur: No concerns reported THRIVE Score: 0 AUDIT C Alcohol Use Questionnaire (AUDIT-C) 1. How often do you have a drink containing alcohol?: Never 3. How often do you have six or more drinks on one occasion?: Never Total Score: 0 HELENE-7 AMB Questionnaire HELENE-7 Date HELENE - 7 assessed: 03/14/24 Feeling nervous, anxious, or on edge: 0 = Not at all Not being able to stop or control worryin = Not at all Worrying too much about different things: 0 = Not at all Trouble relaxin = Not at all Being so restless that it is hard to sit still: 0 = Not at all Becoming easily annoyed or irritable: 0 = Not at all Feeling afraid as if something awful might happen: 0 = Not at all Total HELENE-7 score (0-4 normal; 5-9 mild; 10-14 moderate; 15-21 severe): 0 Source: Developed by Drs. Jacobo Welch, Tiana Mojica, Robin Yang and colleagues, with an educational traci from [employer]. Review of Systems Const Denies poor appetite and Denies weakness Eyes Denies no additional complaints ENT Reports Normal hearing present, Denies dizziness, Denies nasal congestion, Denies tinnitus and Denies sore throat Card Denies chest pain, Denies syncope, Denies rapid heart rate and Denies dyspnea Resp Denies cough and Denies dyspnea GI Denies change in stool character, Reports constipation, Denies diarrhea, Denies nausea and Denies vomiting Denies dysuria and Denies urinary frequency Neuro Reports Normal hearing present, Denies confusion, Denies dizziness, Denies syncope and Denies weakness Psych Denies confusion Physical exam (Primary Care) Vital Signs: Last Vital Signs Pulse 80 03/14/24 09:00 BP 130/72 03/14/24 09:00 Pulse Ox 98 03/14/24 09:00 Oxygen Delivery Method Room Air 03/14/24 09:00 BMI result Body Mass Index 30.5 Tobacco/Smoking Status: Tobacco use Status Tobacco use date assessed 08/24/23 03/14/24 09:04 Patient Tobacco Use Status Never used Tobacco 03/14/24 09:04 Tobacco use type Cigarette 03/14/24 09:04 e-Cigarette/Vaping Use Never Used 03/14/24 09:04 PHQ-9: PHQ-9 Score PHQ-9: Total score 0 03/14/24 09:04 Depression Screening Interpretation: Negative Thrive Assessment: Date of Thrive Assessment Date Thrive assessed 08/24/23 03/14/24 09:04 Currently or been in a relationship where the following occur: No concerns reported Const General: No confusion Orientation/consciousness: No confusion HENMT Head: Yes normocephalic Ears: external ears normal and TM's normal bilaterally Face and sinus: Yes normal facial exam Mouth: moist mucous membranes Throat: Yes tonsils normal Eyes Conjunctivae: conjunctivae normal Pupils: Equal, round and reactive pupils present and Pupil accommodation reflex normal Direct Ophthalmoscopy: normal light reflex Neck Neck: No lymphadenopathy Thyroid: Thyroid normal Chest Chest palpation & inspection: normal inspection of the chest Resp Effort & Inspection: normal respiratory effort and no audible wheezes Auscultation: clear to auscultation bilaterally, no crackles, no wheezes and lung sounds not diminished Cardio Rate: regular rate Rhythm: regular rhythm Peripheral pulses: radial pulses present and dorsalis pedis present GI Other: guaiac neg prostate N Palpation (GI): no masses Auscultation: normal bowel sounds and normoactive bowel sounds Skin General skin exam: no rashes or lesions noted Rashes: no rashes Neuro General: No confusion Cranial nerves: Yes Equal, round and reactive pupils present and Yes Normal hearing present Cognition (Neuro): normal cognition Gait exam (Neuro): Normal gait present Motor exam (neuro): 5/5 motor strength present throughout Deep tendon reflexes (DTR's): Right brachioradialis reflex intensity grade: 2+, Left brachioradialis reflex intensity grade: 2+, Right patellar reflex intensity grade: 2+ and Left patellar reflex intensity grade: 2+ Extrem General: No edema Assessment and Plan Assessment & Plan (1) Annual physical exam: Code(s): Z00.00 - Encounter for general adult medical examination without abnormal findings Plan: Patient is advised to eat healthy, keep well hydrated, keep active and have adequate sleep. (2) CLL (chronic lymphocytic leukemia): Comment: December 2022 Code(s): C91.10 - Chronic lymphocytic leukemia of B-cell type not having achieved remission Plan: Continue to follow-up with Hematology-Oncology (3) Obesity (BMI 30.0-34.9): Code(s): E66.9 - Obesity, unspecified Plan: Continue with eating healthy and keeping active (4) Cough: Code(s): R05.9 - Cough, unspecified (5) Ascending aorta dilatation: Comment: October 2023 Code(s): I77.810 - Thoracic aortic ectasia Plan: Will continue to monitor (6) Pleural effusion, left: Code(s): J90 - Pleural effusion, not elsewhere classified Orders: Orders Comprehensive Met. Panel Today J90 - Pleural effusion, not elsewhere classified Lipid Panel Today E78.00 - Pure hypercholesterolemia, unspecified, J90 - Pleural effusion, not elsewhere classified Thyroid Stimulating Hormone Today J90 - Pleural effusion, not elsewhere classified XR chest 2V Today J90 - Pleural effusion, not elsewhere classified Complete Blood Count Auto Diff Today J90 - Pleural effusion, not elsewhere classified Free T4 (Free Thyroxine) Today J90 - Pleural effusion, not elsewhere classified Vitamin B12 and Folate Today J90 - Pleural effusion, not elsewhere classified Prostate Specific Antigen Scr Today J90 - Pleural effusion, not elsewhere classified Medications: New fexofenadine (Kristy Allergy) 180 mg PO DAILY 30 tabs 0RF R05.9 - Cough, unspecified Coding Level of Care Code Est Pt Prev Care 40-64y(88924) Diagnoses Annual physical exam Z00.00 CLL (chronic lymphocytic leukemia) C91.10 Obesity (BMI 30.0-34.9) E66.9 Cough R05.9 Ascending aorta dilatation I77.810 Pleural effusion, left J90
== END 2024-03-14 09:42 | disposition home or self-care (01) ==
PROVIDERS: PCP Internal Medicine; Visit Provider Internal Medicine
DX: Z00.00 Encounter for general adult medical examination without abnormal findings (principal); C91.10 Chronic lymphocytic leukemia of B-cell type not having achieved remission; R05.9 Cough, unspecified; I77.810 Thoracic aortic ectasia; J90 Pleural effusion, not elsewhere classified
CPT/HCPCS: 99396

== ENCOUNTER 2024-03-14 09:54 | Outpatient (REF) | payer BC, SELFPAY ==
--- NOTE | ~2024-03-14 | XR_ITS ---
EXAMINATION: XR CHEST CLINICAL INFORMATION: Pleural effusion COMPARISON: Chest radiograph 01/29/2024 TECHNIQUE: 2 views of the chest were obtained. FINDINGS: The lungs are adequately expanded. No focal consolidation. Similar streaky atelectasis in the left lung base. Chronic mild blunting of the left costophrenic angle. No significant pleural effusion. The cardiomediastinal silhouette is within normal limits. No acute osseous abnormality. Degenerative changes of the thoracic spine. XR/XR chest 2V IMPRESSION: No acute pulmonary disease. Chronic mild blunting of the left costophrenic angle. Electronically signed by: Pravin Lauren MD 03/21/2024 01:27 PM EDT
== END 2024-03-14 09:55 | disposition home or self-care (01) ==
LOC: HO.XRAY 09:54
PROVIDERS: PCP Internal Medicine; Visit Provider Internal Medicine
DX: J90 Pleural effusion, not elsewhere classified (principal)
CPT/HCPCS: 71046

== ENCOUNTER 2024-03-17 09:17 | Outpatient (AMB) | payer BC, SELFPAY ==
--- NOTE | 2024-03-17 08:54 | MHC.OFFVIS ---
Vital Signs 03/17/24 09:18 Height 6 ft 3 in Weight 244 lb 11.41 oz BMI 30.6 BP 130/62 Blood Pressure Location Rt brachial Position Sitting Pulse 77 Pulse Source Pulse Oximeter Pulse Oximetry (%) 96 Oxygen Delivery Method Room Air Intake Visit Reasons: Chronic cough Allergies No Known Allergies Allergy (Verified 03/17/24 09:21) HPI HPI Chronic cough: Details: Mitchel is a pleasant 58-year-old male, nonsmoker, with underlying CLL under care of Oncology. He is under the care of Dr. Aguilar and presents today for an acute visit. He continues to report productive cough with yellow sputum throughout the day with significant amount of seay to green sputum in the AM minimally changed over the last few months. Denies any chest tightness, wheezing or dyspnea. Denies fevers or chills. He was treated with Augmentin in 10/2023, Zpak in 12/2023 and Doxycycline 01/2024. CXR from 12/2023 revealed patchy and streaky left basilar opacities likely represent subsegmental atelectasis/scar vs infectious/inflammatory process. He had repeat CXR a few days ago, official read not performed at this time. Prior Chest CT did not reveal any significant underlying cause for chronic cough however this was reportedly prior to persistent symptoms. He has also trialed flonase, tessalon perles and mucinex without change. Of note, he does report moderate amount of post nasal drip with possible allergic component. PCP recently started on pipe. [facility] Medical History (Updated 03/17/24 @ 09:43 by Dolores Allen NP) Asthmatic bronchitis Screening PSA (prostate specific antigen) Kidney stones BPH (benign prostatic hyperplasia) Leucocytosis Mass of left side of neck Frequency of micturition Renal calculus, right Peripheral vascular disease Thrombocytopenia Obesity (BMI 30-39.9) Right shoulder pain Surgical History Hx of colonoscopy History of lumbar surgery Hx of tonsillectomy Family History Mother Dementia Father Parkinson disease Prostate cancer Brother No problems noted. Brother Rectal cancer Sister No problems noted. Daughter No problems noted. Son No problems noted. Social History Household Members: Spouse Housing: House Alcohol intake: never Patient Tobacco Use Status: Never used Tobacco Tobacco use type: Cigarette e-Cigarette/Vaping Use: Never Used Second Hand Smoke Exposure: No service: No Current occupational status: employed Current occupation: auto, referee, rock climbing, rt hand Cognitive needs: No Hearing needs: No Vision needs: Yes Review of Systems Const Denies chills, Denies excessive sweating, Denies fever(s), Denies headache(s) and Denies night sweats Eyes Denies dry eyes, Denies irritation and Denies itchy eyes ENT Reports Normal hearing present, Denies headache(s), Denies nasal congestion and Denies nasal discharge Card Denies chest pain, Denies chest pain at rest, Denies chest pain with activity, Denies claudication, Denies leg edema, Denies dyspnea, Denies dyspnea on exertion, Denies orthopnea and Denies paroxysmal nocturnal dyspnea Resp Denies pain on inspiration, Denies pain with cough, Denies dyspnea, Denies dyspnea on exertion, Denies stridor and Denies wheezing Musc Denies myalgias Neuro Reports Normal hearing present and Denies headache(s) Endo Denies excessive sweating Kody/Lymph Denies lymphadenopathy Aller/Immun Denies itchy eyes, Denies seasonal rhinorrhea and Denies wheezing Physical Exam Vital Signs: Last Vital Signs Pulse 77 03/17/24 09:18 BP 130/62 03/17/24 09:18 Pulse Ox 96 03/17/24 09:18 Oxygen Delivery Method Room Air 03/17/24 09:18 BMI result Body Mass Index 30.6 Const General: cooperative, healthy appearing, comfortable, no acute distress, well developed and alert Nutritional Appearance: obese Orientation/consciousness: patient oriented x3 Limitations: no limitations HEENT Head: Yes normal to inspection, Yes normocephalic and Yes atraumatic Ears: hearing grossly normal bilaterally and external ears normal Eyes General: appearance normal, both eyes and all related structures Eyelids: Yes eyelids normal Sclerae: sclerae normal EOM: EOMs intact bilaterally Neck Neck: Yes normal visual inspection and Yes no lymphadenopathy Lymphatic: no lymphadenopathy noted Chest Chest palpation & inspection: normal inspection of the chest Resp Effort & Inspection: normal respiratory effort, able to speak in complete sentences, no audible wheezes, no cough, no stridor, not tachypneic, no tripod positioning and no use of accessory muscles Auscultation: clear to auscultation bilaterally Cardio Jugular venous distension: no JVD Rate: regular rate Rhythm: regular rhythm Skin Other: warm, dry General skin exam: no rashes or lesions noted Neuro General: patient oriented x3 Cranial nerves: Yes Normal hearing present Cognition (Neuro): normal cognition Gait exam (Neuro): Normal gait present Extrem General: Yes normal to inspection, Yes capillary refill normal, Yes no clubbing, cyanosis or edema and Yes no pedal edema Psych Appearance: grossly normal and well kempt Speech and movement: Normal speech and movement present and Clear speech present Affect: normal affect Attitude: cooperative Thought process: Normal thought process present Thought content: Normal thought content present Insight: Good insight present (Psych) Judgement: Good judgement present (Psych) Assessment & Plan Assessment & Plan (1) Cough: Code(s): R05.9 - Cough, unspecified Category: Medical (2) Environmental allergies: Code(s): Z91.09 - Other allergy status, other than to drugs and biological substances Category: Medical Plan Given that Mitchel's symptoms have persisted despite multiple rounds of antibiotics, will send for sputum culture. Will consider repeat chest CT. Patient also noted moderate PND, with possible allergic component. Will trial ipratropium nasal spray and send for RAST. All questions were answered and patient is in agreement of plan. Will follow up with Dr. Aguilar for regularly scheduled appointment. Orders: Orders Sputum Cult + Gram stain Today R05.9 - Cough, unspecified Resp Allergy Profile Region I Today Z91.09 - Other allergy status, other than to drugs and biological substances Immunoglobulin E Today Z91.09 - Other allergy status, other than to drugs and biological substances Medications: New ipratropium bromide administer into each nostril 2 sprays intranasal BID 30 mL 3RF Coding Level of Care Code Est Pt Level 4 (07245) Diagnoses Cough R05.9 Environmental allergies Z91.09
[2024-03-17 09:18] VITALS: BP 130/62; PULSE 77; O2SAT 96; BMI 30.6
== END 2024-03-17 09:51 | disposition home or self-care (01) ==
PROVIDERS: PCP Internal Medicine; Visit Provider Nurse Practitioner Family
DX: R05.9 Cough, unspecified (principal); Z91.09 Other allergy status, other than to drugs and biological substances
CPT/HCPCS: 99214

== ENCOUNTER → 2024-03-17 09:17 | Outpatient (BNVA) | payer BC, SELFPAY | PROVIDERS: PCP Internal Medicine; Visit Provider Nurse Practitioner Family ==

== ENCOUNTER 2024-03-18 06:06 | Outpatient (REF) | payer BC, SELFPAY ==
[2024-03-18 06:32] LABS: MANUAL DIFF FLAG NO
[2024-03-18 07:10] LABS: Basophils Absolute Auto 0.1 X10*3/uL (0.0-0.2); Basophils Percent Auto 0.3 % (0-2); Basophils Percent Auto 0.4 % (0-2); Eosinophils Absolute Auto 0.3 X10*3/uL (0.0-0.4); Eosinophils Absolute Auto 0.4 X10*3/uL (0.0-0.4); Eosinophils Percent Auto 2.4 % (0-4); Eosinophils Percent Auto 2.5 % (0-4); Hematocrit 50.2 % (42.0-52.0); Hemoglobin 16.5 g/dl (14.0-18.0); Imm Gran Abs Auto 0.06 X10*3/uL (0.00-0.03); Imm Gran Abs Auto 0.07 X10*3/uL (0.00-0.03); Imm Gran Pct Auto 0.4 % (0.0-0.4); Imm Gran Pct Auto 0.5 % (0.0-0.4); Lymphocytes Absolute Auto 1.1 X10*3/uL (1.2-4.9); Lymphocytes Percent Auto 7.5 % (20-40); Mean Corpuscular HGB Conc 32.9 g/dl (31.0-36.0); Mean Corpuscular Hemoglobin 29.8 pg (27.0-33.0); Mean Corpuscular Hemoglobin 30.1 pg (27.0-33.0); Mean Corpuscular Volume 90.6 fL (80.0-98.0); Mean Corpuscular Volume 91.1 fL (80.0-98.0); Mean Platelet Volume 12.3 fL (9.4-12.4); Mean Platelet Volume 12.4 fL (9.4-12.4); Monocytes Absolute Auto 1.1 X10*3/uL (0.1-1.2); Monocytes Percent Auto 7.6 % (2-11); Monocytes Percent Auto 7.8 % (2-11); Neutrophils Absolute Auto 11.5 x10*3/uL (2.0-8.3); Neutrophils Absolute Auto 11.6 x10*3/uL (2.0-8.3); Neutrophils Percent Auto 81.7 % (45-73); Neutrophils Percent Auto 81.9 % (45-73); Platelet Count 149 X10*3/uL (160-400); Platelet Count 161 X10*3/uL (160-400); Red Blood Count 5.49 X10*6/uL (4.60-5.80); Red Blood Count 5.54 X10*6/uL (4.60-5.80); Red Cell Distribution Width 13.2 % (11.0-16.0); White Blood Count 14.2 X10*3/uL (4.8-10.8)
[2024-03-18 07:42] LABS: Alanine Aminotransferase 22 U/L (0-40); Albumin Level 4.1 g/dL (3.5-5.0); Alkaline Phosphatase 102 U/L (39-117); Anion Gap 14 (12-20); Aspartate Amino Transferase 16 U/L (5-37); Bilirubin Total 0.7 mg/dL (0.0-1.0); Blood Urea Nitrogen 12 mg/dL (9-16); Calcium 9.6 mg/dL (8.4-10.2); Carbon Dioxide 28 mmol/L (22-29); Chloride 108 mmol/L (96-108); Estimated Glomerular Filt Rate > 60; Glucose Random 108 mg/dL (60-115); Potassium 4.7 mmol/L (3.3-5.1); Sodium 145 mmol/L (135-145); Total Protein 6.7 g/dL (6.5-8.0)
[2024-03-18 07:50] LABS: Alanine Aminotransferase 22 U/L (0-40); Albumin Level 4.1 g/dL (3.5-5.0); Alkaline Phosphatase 105 U/L (39-117); Anion Gap 12 (12-20); Aspartate Amino Transferase 16 U/L (5-37); Bilirubin Total 0.8 mg/dL (0.0-1.0); Blood Urea Nitrogen 13 mg/dL (9-16); Calcium 9.6 mg/dL (8.4-10.2); Carbon Dioxide 28 mmol/L (22-29); Chloride 109 mmol/L (96-108); Cholesterol 126 mg/dL (<200); Estimated Glomerular Filt Rate > 60; Glucose Random 107 mg/dL (60-115); HDL Cholesterol 34 mg/dL (>40); LDL Cholesterol Calculated 81 mg/dL (<100); Lactate Dehydrogenase 159 U/L (118-273); Potassium 4.4 mmol/L (3.3-5.1); Sodium 145 mmol/L (135-145); Total Protein 6.6 g/dL (6.5-8.0); Triglycerides 58 mg/dL (<150)
[2024-03-18 08:07] LABS: Thyroid Stimulating Hormone 0.67 uIU/mL (0.32-4.0)
[2024-03-18 08:19] LABS: Folate 6.8 ng/mL (> or = 4.0); Prostate Specific Antigen Scr 3.26 ng/mL (<0.05-4.0); Vitamin B12 953 pg/mL (200-900)
[2024-03-20 07:02] LABS: Class Alternaria alternata 0; Class Aspergillus fumigatus 0; Class Bermuda Grass 0; Class Birch 0; Class Cat Dander 0; Class Cladosporium herbarum 0; Class Cockroach 0; Class Common Ragweed 0; Class Cottonwood 0; Class Derm. pterony 0; Class Dermatophagoides farinae 0; Class Dog Dander 0; Class Elm 0; Class Maple Box Elder 0; Class Mountain Cedar 0; Class Mouse Urine Protein 0; Class Mugwort 0; Class Oak 0; Class Penicillium crysogenum 0; Class Rough Pigweed 0; Class Sheep Sorrel 0; Class Sycamore 0; Class Timothy Grass 0; Class Walnut Tree 0; Class White Ash 0; Class White Mulberry 0; D001 IgE D pteronyssinus <0.10 kU/L; D002 - IgE D farinae <0.10 kU/L; E001 - IgE Cat Dander <0.10 kU/L; E005 - IgE Dog Dander <0.10 kU/L; E072-IgE Mouse Urine <0.10 kU/L; G002 IgE Bermuda Grass <0.10 kU/L; G006 - IgE Timothy Grass <0.10 kU/L; I006-IgE Cockroach, German <0.10 kU/L; Immunoglobulin E 6 kU/L (<OR=114); M001 IgE Penicillium chrysogen <0.10 kU/L; M002 - IgE Cladosporium herbar <0.10 kU/L; M003 - IgE Aspergillus fumigat <0.10 kU/L; M006 - IgE Alternaria alternat <0.10 kU/L; T001 IgE Maple/Box Elder <0.10 kU/L; T003 IgE Common Silver Birch <0.10 kU/L; T006 - IgE Cedar, Mountain <0.10 kU/L; T007 - IgE Oak, White <0.10 kU/L; T008 IgE Elm, American <0.10 kU/L; T010 - IgE Walnut <0.10 kU/L; T011 - IgE Maple Leaf Sycamore <0.10 kU/L; T014 - IgE Cottonwood <0.10 kU/L; T015 - IgE Ash, White <0.10 kU/L; T070 - IgE White Mulberry <0.10 kU/L; W001 - IgE Ragweed, Short <0.10 kU/L; W006 - IgE Mugwort <0.10 kU/L; W014 IgE Pigweed, Common <0.10 kU/L; W018 IgE Sheep Sorrel <0.10 kU/L
== END 2024-03-18 06:07 | disposition home or self-care (01) ==
LOC: HO.LAB 06:06
PROVIDERS: Internal Medicine Medical Oncology; Nurse Practitioner Family; PCP Internal Medicine; Visit Provider Internal Medicine
DX: C91.10 Chronic lymphocytic leukemia of B-cell type not having achieved remission (principal); J90 Pleural effusion, not elsewhere classified; E78.00 Pure hypercholesterolemia, unspecified; Z12.5 Encounter for screening for malignant neoplasm of prostate; Z91.09 Other allergy status, other than to drugs and biological substances; R05.9 Cough, unspecified
CPT/HCPCS: 36415; 80053; 80061; 82607; 82746; 82785; 83615; 84153; 84439; 84443; 85025; 86003; 87070; 87077; 87185; 87205

== ENCOUNTER 2024-03-24 11:27 | Outpatient (REF) | payer BC, SELFPAY ==
--- NOTE | ~2024-03-24 | CT_ITS ---
EXAMINATION: CT CHEST, ABDOMEN, AND PELVIS WITH CONTRAST CLINICAL INFORMATION: Restaging chronic lymphocytic leukemia. COMPARISON: Chest CTs dating between August 22, 2023 and January 29, 2023. No prior CT scan of the abdomen or pelvis is currently available for comparison. Chest x-ray dated March 14, 2024. TECHNIQUE: Multidetector volumetric CT imaging of the chest, abdomen, and pelvis was obtained after the administration of 85 mL of Omnipaque 350 intravenous contrast without immediate adverse reactions. Axial MIP volume rendering provided. Sagittal and coronal reformatted images were obtained. This CT examination was performed using dose optimization techniques as appropriate, variously including the following: *Automated exposure control *Adjustment of mA and/or kV according to patient size (this includes techniques or standardized protocols for targeted exams where dose is matched to indication/reason for exam; i.e. extremities or head) *Use of iterative reconstruction technique DLP: 631 mGy-cm FINDINGS: LUNGS: Right lower lobe posteromedial consolidation with associated bronchial wall thickening. Occlusion of most peripheral bronchi in this region. These findings appear new compared with most recent prior study from March 14, 2024. MEDIASTINUM: The mediastinum appears unremarkable. No evidence of adenopathy by size criteria. CORONARY ARTERY CALCIFICATION: None. PLEURA: There is no pleural effusion. No pleural mass or thickening. AXILLA: No lymphadenopathy by size criteria. LIVER, GALLBLADDER, AND BILIARY TREE: The liver appears unremarkable in size, shape, and attenuation. No focal hepatic lesion or biliary ductal dilatation is appreciated. Unremarkable appearance of the gallbladder. PANCREAS: Unremarkable SPLEEN: Unremarkable ADRENAL GLANDS: Unremarkable KIDNEYS AND URETERS: 1.5 cm or less benign bilateral renal cysts for which no further dedicated follow-up imaging as indicated. The kidneys otherwise appear unremarkable in size, shape, and attenuation. No hydronephrosis, hydroureter, or calculi seen. BLADDER: Unremarkable GASTROINTESTINAL TRACT: The stomach, small and large bowel appear unremarkable. No diverticulosis. Normal-appearing distal ileum and vermiform appendix. ABDOMINAL WALL: No significant hernia is appreciated. LYMPH NODES: No evidence of adenopathy by size criteria. VASCULAR: Unremarkable. PELVIC VISCERA: Borderline mildly enlarged prostate. OSSEOUS STRUCTURES: No lytic or sclerotic bony lesion identified. Moderate disc space narrowing at L5-S1. CT/CT abdomen pelvis w IV con IMPRESSION: Right lower lobe posteromedial consolidation with associated bronchial wall thickening. Occlusion of most peripheral bronchi in this region. These findings appear new compared with most recent prior study from March 14, 2024. Differential diagnosis includes, but is not limited to, pneumonia. Recommend clinical correlation and follow-up to resolution after appropriate course of therapy has been completed. Dr. Dee was directly informed of the findings by telephone at approximately 9:50 AM on April 07, 2024. Electronically signed by: Rafael Blunt MD 04/07/2024 09:52 AM EDT
[2024-03-24] MEDS: Barium Sulfate Oral (Vanilla) 450 ML ORAL.SUSP PO (13:04)
[2024-03-24] MEDS: Barium Sulfate Oral (Berry) 450 ML ORAL.SUSP PO (13:05)
[2024-03-24] MEDS: iohexoL 350 MG/ML 100 ML INFUS..BTL 85 ML IV (14:09)
== END 2024-03-24 11:28 | disposition home or self-care (01) ==
LOC: HO.CT 11:27
PROVIDERS: PCP Internal Medicine; Visit Provider Internal Medicine Medical Oncology
DX: C91.10 Chronic lymphocytic leukemia of B-cell type not having achieved remission (principal); R05.9 Cough, unspecified
CPT/HCPCS: 71260; 74177; Q9967

== ENCOUNTER 2024-04-15 08:53 | Outpatient (AMB) | payer BC, SELFPAY ==
--- NOTE | 2024-04-15 08:35 | A.OFFVIS_ITS ---
Vital Signs 04/15/24 08:55 Height 6 ft 3 in Weight 242 lb 2 oz BMI 30.3 BP 110/68 Blood Pressure Location Rt brachial Position Sitting Pulse 62 Pulse Source Pulse Oximeter Pulse Oximetry (%) 97 Oxygen Delivery Method Room Air Intake Visit Reasons: Chronic cough Allergies No Known Allergies Allergy (Verified 04/15/24 08:58) HPI HPI Chronic cough: Details: Mitchel is a pleasant 58-year-old male, nonsmoker, with underlying CLL under care of Oncology. He is under the care of Dr. Aguilar and presents today for a close follow up. He was seen on 03/17/24 with productive cough with yellow sputum as well as seay to green sputum in the AM minimally changed over the last few months, despite multiple antibiotics. He was sent for sputum which grew H. Flu and was treated with cefpodoxime. During this time, he was also sent for chest CT by Dr. Dee which revealed findings suggestive of pneumonia on 03/27 and treated with levaquin. He has three days left of antibiotics and reports improvements overall. He denies fevers or chills. He also notes intermittent wheezing and dyspnea on exertion. He denies prior history of asthma however has been treated in the past with albuterol PRN after URI. He does have albuterol at home which he has not used in quite some time. [facility] Medical History (Updated 04/15/24 @ 14:42 by Dolores Allen NP) Asthmatic bronchitis Screening PSA (prostate specific antigen) Kidney stones BPH (benign prostatic hyperplasia) Leucocytosis Mass of left side of neck Frequency of micturition Renal calculus, right Peripheral vascular disease Thrombocytopenia Obesity (BMI 30-39.9) Right shoulder pain Surgical History Hx of colonoscopy History of lumbar surgery Hx of tonsillectomy Family History Mother Dementia Father Parkinson disease Prostate cancer Brother No problems noted. Brother Rectal cancer Sister No problems noted. Daughter No problems noted. Son No problems noted. Social History Household Members: Spouse Housing: House Alcohol intake: never Patient Tobacco Use Status: Never used Tobacco Tobacco use type: Cigarette e-Cigarette/Vaping Use: Never Used Second Hand Smoke Exposure: No service: No Current occupational status: employed Current occupation: auto, referee, rock climbing, rt hand Cognitive needs: No Hearing needs: No Vision needs: Yes Review of Systems Const Denies chills, Denies excessive sweating, Denies fever(s), Denies headache(s) and Denies night sweats Eyes Denies dry eyes, Denies irritation and Denies itchy eyes ENT Reports Normal hearing present, Denies headache(s), Denies nasal congestion and Denies nasal discharge Card Denies chest pain, Denies chest pain at rest, Denies chest pain with activity, Denies claudication, Denies leg edema, Denies orthopnea and Denies paroxysmal nocturnal dyspnea Resp Denies pain on inspiration, Denies pain with cough and Denies stridor Musc Denies myalgias Neuro Reports Normal hearing present and Denies headache(s) Endo Denies excessive sweating Kody/Lymph Denies lymphadenopathy Aller/Immun Denies itchy eyes and Denies seasonal rhinorrhea Physical Exam Vital Signs: Last Vital Signs Pulse 62 04/15/24 08:55 BP 110/68 04/15/24 08:55 Pulse Ox 97 04/15/24 08:55 Oxygen Delivery Method Room Air 04/15/24 08:55 BMI result Body Mass Index 30.3 Const General: cooperative, healthy appearing, comfortable, no acute distress, well developed and alert Nutritional Appearance: obese Orientation/consciousness: patient oriented x3 Limitations: no limitations HEENT Head: Yes normal to inspection, Yes normocephalic and Yes atraumatic Ears: hearing grossly normal bilaterally and external ears normal Eyes General: appearance normal, both eyes and all related structures Eyelids: Yes eyelids normal Sclerae: sclerae normal EOM: EOMs intact bilaterally Neck Neck: Yes normal visual inspection and Yes no lymphadenopathy Lymphatic: no lymphadenopathy noted Chest Chest palpation & inspection: normal inspection of the chest Resp Effort & Inspection: normal respiratory effort, able to speak in complete sentences, no audible wheezes, no cough, no stridor, not tachypneic, no tripod positioning and no use of accessory muscles Auscultation: diminished lung sounds Cardio Jugular venous distension: no JVD Rate: regular rate Rhythm: regular rhythm Skin Other: warm, dry General skin exam: no rashes or lesions noted Neuro General: patient oriented x3 Cranial nerves: Yes Normal hearing present Cognition (Neuro): normal cognition Gait exam (Neuro): Normal gait present Extrem General: Yes normal to inspection, Yes capillary refill normal, Yes no clubbing, cyanosis or edema and Yes no pedal edema Psych Appearance: grossly normal and well kempt Speech and movement: Normal speech and movement present and Clear speech present Affect: normal affect Attitude: cooperative Thought process: Normal thought process present Thought content: Normal thought content present Insight: Good insight present (Psych) Judgement: Good judgement present (Psych) Results Reviewed Results Reviewed: [address] [address] [address] Scan Report Signed Patient: Mitchel Rojo MR#: [id number] : 1965 Acct:[id number] Age/Sex: 59 / M ADM Date: 03/24/24 Loc: .CT Attending Dr: Francie Dee MD Ordering Physician: Francie Dee MD Date of Service: 03/24/24 Procedure(s): CT chest w IV con Accession Number(s): [id number] cc: Francie Dee MD; Mylene Mari MD~ EXAMINATION: CT CHEST, ABDOMEN, AND PELVIS WITH CONTRAST CLINICAL INFORMATION: Restaging chronic lymphocytic leukemia. COMPARISON: Chest CTs dating between August 22, 2023 and January 29, 2023. No prior CT scan of the abdomen or pelvis is currently available for comparison. Chest x-ray dated March 14, 2024. TECHNIQUE: Multidetector volumetric CT imaging of the chest, abdomen, and pelvis was obtained after the administration of 85 mL of Omnipaque 350 intravenous contrast without immediate adverse reactions. Axial MIP volume rendering provided. Sagittal and coronal reformatted images were obtained. This CT examination was performed using dose optimization techniques as appropriate, variously including the following: *Automated exposure control *Adjustment of mA and/or kV according to patient size (this includes techniques or standardized protocols for targeted exams where dose is matched to indication/reason for exam; i.e. extremities or head) *Use of iterative reconstruction technique DLP: 631 mGy-cm FINDINGS: LUNGS: Right lower lobe posteromedial consolidation with associated bronchial wall thickening. Occlusion of most peripheral bronchi in this region. These findings appear new compared with most recent prior study from March 14, 2024. MEDIASTINUM: The mediastinum appears unremarkable. No evidence of adenopathy by size criteria. CORONARY ARTERY CALCIFICATION: None. PLEURA: There is no pleural effusion. No pleural mass or thickening. AXILLA: No lymphadenopathy by size criteria. LIVER, GALLBLADDER, AND BILIARY TREE: The liver appears unremarkable in size, shape, and attenuation. No focal hepatic lesion or biliary ductal dilatation is appreciated. Unremarkable appearance of the gallbladder. PANCREAS: Unremarkable SPLEEN: Unremarkable ADRENAL GLANDS: Unremarkable KIDNEYS AND URETERS: 1.5 cm or less benign bilateral renal cysts for which no further dedicated follow-up imaging as indicated. The kidneys otherwise appear unremarkable in size, shape, and attenuation. No hydronephrosis, hydroureter, or calculi seen. BLADDER: Unremarkable GASTROINTESTINAL TRACT: The stomach, small and large bowel appear unremarkable. No diverticulosis. Normal-appearing distal ileum and vermiform appendix. ABDOMINAL WALL: No significant hernia is appreciated. LYMPH NODES: No evidence of adenopathy by size criteria. VASCULAR: Unremarkable. PELVIC VISCERA: Borderline mildly enlarged prostate. OSSEOUS STRUCTURES: No lytic or sclerotic bony lesion identified. Moderate disc space narrowing at L5-S1. CT/CT chest w IV con IMPRESSION: Right lower lobe posteromedial consolidation with associated bronchial wall thickening. Occlusion of most peripheral bronchi in this region. These findings appear new compared with most recent prior study from March 14, 2024. Differential diagnosis includes, but is not limited to, pneumonia. Recommend clinical correlation and follow-up to resolution after appropriate course of therapy has been completed. Dr. Dee was directly informed of the findings by telephone at approximately 9:50 AM on April 07, 2024. Electronically signed by: Rafael Blunt MD 04/07/2024 09:52 AM EDT Dictated By: Rafael Blunt Signed By: <Electronically signed by Rafael Blunt in OV> 04/07/24 0952 DD/ 1342 TD/TT: 03/24/24 1409 Clinical Transplant Coordinator: Assessment & Plan Assessment & Plan (1) Cough: Code(s): R05.9 - Cough, unspecified Category: Medical Plan Mitchel reports slowly improving symptoms, will extend levaquin for a total of 14 days. He is aware if symptoms do not improve to call office and will need a follow up with Dr. Aguilar. If improving, will send for repeat CXR in 6-8 weeks to assess for resolution. Encouraged patient to use albuterol PRN. If he persistently uses would consider PFT and ICS. All questions were answered and patient is in agreement of plan. Will follow up with Dr. Aguilar for regularly scheduled appointment. Orders: Orders XR chest 2V 6 Weeks Z87.01 - Personal history of pneumonia (recurrent) Medications: New levofloxacin to extend current rx for a total of 14 days 750 mg PO DAILY 4 tabs 0RF Coding Level of Care Code Est Pt Level 4 (71943) Diagnoses Cough R05.9
[2024-04-15 08:55] VITALS: BP 110/68; PULSE 62; O2SAT 97; BMI 30.3
== END 2024-04-15 09:27 | disposition home or self-care (01) ==
PROVIDERS: PCP Internal Medicine; Visit Provider Nurse Practitioner Family
DX: R05.9 Cough, unspecified (principal)
CPT/HCPCS: 99214

== ENCOUNTER → 2024-04-15 08:53 | Outpatient (BNVA) | payer BC, SELFPAY | PROVIDERS: PCP Internal Medicine; Visit Provider Nurse Practitioner Family ==

== ENCOUNTER 2024-05-05 09:59 | Outpatient (REF) | payer BC, SELFPAY | END 2024-05-05 10:00 | disposition home or self-care (01) | LOC: HO.US 09:59 | PROVIDERS: PCP Internal Medicine; Visit Provider Urology | DX: N40.1 Benign prostatic hyperplasia with lower urinary tract symptoms (principal); N20.0 Calculus of kidney | CPT/HCPCS: 76770 ==

== ENCOUNTER 2024-07-04 08:40 | Outpatient (AMB) | payer BC, SELFPAY ==
--- NOTE | 2024-07-04 08:43 | MHC.PC.OV ---
Vital Signs 07/04/24 08:44 Height 6 ft 3 in Weight 253 lb BMI 31.6 BP 122/74 Blood Pressure Location Lt brachial Position Sitting Pulse 65 Pulse Source Pulse Oximeter Pulse Oximetry (%) 95 Oxygen Delivery Method Room Air Intake Visit Reasons: cough Allergies No Known Allergies Allergy (Verified 07/04/24 08:45) Tobacco use date assessed: 07/04/24 Dental Screening Dental Screen Date: 09/12/23 HPI cough HPI Details The patient is a 59-year-old male presenting with concerns regarding previous pneumonia treatment, suspected kidney stones, and ongoing management of benign prostatic hyperplasia and chronic lymphocytic leukemia. The patient underwent a CAT scan for the evaluation of his lungs, which revealed findings consistent with pneumonia. He was treated with Levaquin followed by Zithromax, resulting in significant improvement in symptoms, including a resolved cough. A follow-up chest x-ray was recommended to ensure pneumonia resolution. The patient also reports previous episodic back pain localized to the area of the kidneys, initially suggestive of kidney stones, although current symptoms are absent. Despite a kidney stone concern, a previous CAT scan of the abdomen was unremarkable, and an ultrasound is pending to determine the presence of any urological abnormalities. The patient has a history of benign prostatic hyperplasia managed with Tamsulosin, with stable blood pressure readings and absence of hypotension. Additionally, the patient is receiving treatment for chronic lymphocytic leukemia. He has received his flu and COVID-19 vaccines, and R.S.V. vaccination was mentioned. There is a further report of fatigue, particularly in the evenings, likely attributed to the leukemia. Overall, the patient maintains an active lifestyle, engaging in regular sports activities and adhering to water intake for health maintenance. [facility] Medical History (Updated 07/04/24 @ 09:12 by Mylene Mari MD) Asthmatic bronchitis Screening PSA (prostate specific antigen) Kidney stones BPH (benign prostatic hyperplasia) Leucocytosis Mass of left side of neck Frequency of micturition Renal calculus, right Peripheral vascular disease Thrombocytopenia Obesity (BMI 30-39.9) Right shoulder pain Surgical History Hx of colonoscopy History of lumbar surgery Hx of tonsillectomy Family History Mother Dementia Father Parkinson disease Prostate cancer Brother No problems noted. Brother Rectal cancer Sister No problems noted. Daughter No problems noted. Son No problems noted. Social History Household Members: Spouse Housing: House Alcohol intake: never Patient Tobacco Use Status: Never used Tobacco Tobacco use type: Cigarette e-Cigarette/Vaping Use: Never Used Second Hand Smoke Exposure: No service: No Current occupational status: employed Current occupation: auto, referee, rock climbing, rt hand Cognitive needs: No Hearing needs: No Vision needs: Yes Questionnaire Thrive Questionnaire Date Thrive assessed: 07/04/24 I am a: Patient What is your living situation today?: I have a steady place to live Within the past 12 months, did the food you bought not last and you didn't have the money to get more?: Never true Within the past 12 months, did you worry whether your food would run out before you got money to buy more?: Never true Do you have trouble paying for medicines?: No Do you have trouble getting transportation to medical appointments?: No Do you have trouble paying your heating and electricity bill?: No Do you have trouble taking care of your child, family member or friend?: No Do you have trouble with day-to-day activities such as bathing, preparing meals, shopping, managing finances, etc.?: No Are you currently unemployed and looking for a job?: No Are you interested in more education?: No Please select the resources that you would like help with: None Currently or been in a relationship where the following occur: No concerns reported THRIVE Score: 0 HELENE-7 AMB Questionnaire HELENE-7 Date HELENE - 7 assessed: 03/14/24 Source: Developed by Drs. Jacobo Welch, Tiana Mojica, Robin Yang and colleagues, with an educational traci from [employer]. Physical exam (Primary Care) Vital Signs: Last Vital Signs Pulse 65 07/04/24 08:44 BP 122/74 07/04/24 08:44 Pulse Ox 95 07/04/24 08:44 Oxygen Delivery Method Room Air 07/04/24 08:44 BMI result Body Mass Index 31.6 Tobacco/Smoking Status: Tobacco use Status Tobacco use date assessed 07/04/24 07/04/24 08:48 Patient Tobacco Use Status Never used Tobacco 07/04/24 08:48 Tobacco use type Cigarette 07/04/24 08:48 e-Cigarette/Vaping Use Never Used 07/04/24 08:48 Thrive Assessment: Date of Thrive Assessment Date Thrive assessed 07/04/24 07/04/24 08:48 Currently or been in a relationship where the following occur: No concerns reported Const General: alert; No acute distress Eyes Conjunctivae: conjunctivae normal Resp Auscultation: clear to auscultation bilaterally Cardio Rate: regular rate Rhythm: regular rhythm GI Inspection: Yes normal to inspection Extrem General: Yes normal to inspection and No edema Coding Level of Care Code Est Pt Level 4 (44310) Complex EM visit Add On G2211 Diagnoses History of recent pneumonia Z87.01 Persistent cough R05.3 Obesity (BMI 30.0-34.9) E66.9 CLL (chronic lymphocytic leukemia) C91.10 Right flank pain R10.9 Assessment & Plan Assessment & Plan (1) History of recent pneumonia: Code(s): Z87.01 - Personal history of pneumonia (recurrent) Category: Medical Plan: treated with levaquin (2) Persistent cough: Code(s): R05.3 - Chronic cough Category: Medical Plan: RESOLVED but advised to get ff up Chest xray (3) Obesity (BMI 30.0-34.9): Code(s): E66.9 - Obesity, unspecified Category: Medical Plan: diet and exercise (4) CLL (chronic lymphocytic leukemia): Comment: December 2022 Code(s): C91.10 - Chronic lymphocytic leukemia of B-cell type not having achieved remission Category: Medical (5) Right flank pain: Code(s): R10.9 - Unspecified abdominal pain Category: Medical Plan: patient is patiently waiting result of the US - will ff up Plan - Obtain and review results from the pending ultrasound to assess for kidney stones or other renal issues. - Continue monitoring renal symptoms and advise conservative management, including the use of heating pads and stretches for muscle-related pain as needed. - A follow-up chest x-ray is recommended to assess resolution of pneumonia and ensure no further pulmonary issues. - Continue Tamsulosin for benign prostatic hyperplasia and monitor for symptoms and blood pressure regularly. - Maintain current management for chronic lymphocytic leukemia and encourage patient adherence to oncologist's recommendations. - Advise on continued health maintenance practices including regular physical activity, flu, and COVID-19 vaccination. - Reinforce the need for ongoing symptom monitoring and engage in preventative healthcare strategies discussed during the visit.
[2024-07-04 08:44] VITALS: BP 122/74; PULSE 65; O2SAT 95; BMI 31.6
== END 2024-07-04 09:51 | disposition home or self-care (01) ==
PROVIDERS: PCP Internal Medicine; Visit Provider Internal Medicine
DX: R05.3 Chronic cough (principal); C91.10 Chronic lymphocytic leukemia of B-cell type not having achieved remission; E66.9 Obesity, unspecified; Z68.31 Body mass index [BMI] 31.0-31.9, adult; Z87.01 Personal history of pneumonia (recurrent); R10.9 Unspecified abdominal pain

== ENCOUNTER → 2024-07-04 08:40 | Outpatient (BNVA) | payer BC, SELFPAY | PROVIDERS: PCP Internal Medicine; Visit Provider Internal Medicine ==

== ENCOUNTER 2024-07-14 10:04 | Outpatient (REF) | payer BC, SELFPAY ==
--- NOTE | ~2024-07-14 | XR_ITS ---
CLINICAL HISTORY: Z87.01 - Personal history of pneumonia (recurrent) 2 view chest x-ray Comparison: None Findings: The lungs are clear. Heart size is normal. No acute fracture. IMPRESSION: 1. No acute findings. This document has been electronically signed by: Radha Sharma MD on 07/15/2024 15:12:37
== END 2024-07-14 10:05 | disposition home or self-care (01) ==
LOC: HO.XRAY 10:04
PROVIDERS: PCP Internal Medicine; Visit Provider Nurse Practitioner Family
DX: Z87.01 Personal history of pneumonia (recurrent) (principal)
CPT/HCPCS: 71046

== ENCOUNTER → 2024-07-14 11:06 | Outpatient (BNV) | payer BC, SELFPAY | PROVIDERS: PCP Internal Medicine; Visit Provider Nuclear Medicine | DX: R05.3 Chronic cough (principal); Z87.01 Personal history of pneumonia (recurrent) | CPT/HCPCS: 71046 ==

== ENCOUNTER 2024-07-17 08:24 | Outpatient (AMB) | payer OTHER, SELFPAY ==
--- NOTE | 2024-07-16 23:49 | MHC.OFFVIS ---
Intake Visit Reasons: 1y follow up Intake Note: Patient is present for 1 year follow up Urology Med: Tamsulosin Antibiotic Allergy: None Blood Thinner: None Last PVR: Todays PVR: 49ml's LABS: Patient Symptoms: Accompanied by: Self / Same As Patient Allergies No Known Allergies Allergy (Verified 07/17/24 08:51) Medication List - Last Reconciled 07/17/24 by Alexandrea Cramer MD blood pressure monitor (Blood Pressure Kit) As directed dutasteride (Avodart) 0.5 mg PO DAILY fexofenadine (Kristy Allergy) 180 mg PO DAILY tamsulosin 0.4 mg PO BEDTIME 90 days HPI Comments Details: 07/17/24--Mitchel is a 59-year-old male who presents to the office for FU for evaluation of BPH and kidney stones. FH father had prostate cancer. Review renal US results, bilateral kidney stones, largest right kidney 8 mm right kidney lower pole. Discussed risks to include but not limited to, blood in the urine, bruising to the skin, kidney hematoma, possible need for another procedure if a stone fragment obstructs the ureter while passing, possible need to repeat procedure if stone is not completely fragmented. Office cysto. Cont tamsulosin. Start avodart. PSA--03/18/24--3.26 ng/mL Renal US--- 05/05/24--RIGHT KIDNEY: 0.8 cm lower pole calculus. 1.8 cm lower pole cyst with benign features, no indication for followup imaging. LEFT KIDNEY: Small mid and lower pole cortical calcifications. 1.2 cm midpole cyst with peripheral calcification, almost certainly benign. PROSTATE GLAND: The prostate gland is enlarged with a volume of 54.1 mL. Prostate gland appears lobulated with masslike projection into the bladder, possibly related to prostate gland, although bladder wall mass could also be considered. Review of chart: 07/16/23--Mitchel states he is using the tamsulosin, I have reviewed the 24 hr urine results with him. Discussed 24 hour urine results: Total volume 0.72 L, Calcium 102 mg; Oxalate 23 mg, Sodium 66, Citrate 665 mg. Instructed on importance of fluid intake, Low oxalate diet, low sodium diet. followed by hematology-oncology ---recently diagnosed with leukemia. pt states has passed kidney stones in the past. states his father had history of prostate cancer. States that his brother also had history of cancer and underwent colostomy but is not sure about the type of cancer Results: PSA results reviewed--10/10/22-- 2.53. Renal US results reviewed--10/19/22-- Left renal cysts measuring up to 1.9 cm. Bilateral nonobstructing kidney stones, Prostatomegaly with PVR--127 mL. 12/18/22 prostate exam-- Mild to moderately enlarged, irregular, no suspicious nodules palpated. AUA symptom score: 15. [facility] Medical History Asthmatic bronchitis Screening PSA (prostate specific antigen) Kidney stones BPH (benign prostatic hyperplasia) Leucocytosis Mass of left side of neck Frequency of micturition Renal calculus, right Peripheral vascular disease Thrombocytopenia Obesity (BMI 30-39.9) Right shoulder pain Surgical History Hx of colonoscopy History of lumbar surgery Hx of tonsillectomy Family History Mother Dementia Father Parkinson disease Prostate cancer Brother No problems noted. Brother Rectal cancer Sister No problems noted. Daughter No problems noted. Son No problems noted. Social History Household Members: Spouse Housing: House Alcohol intake: never Patient Tobacco Use Status: Never used Tobacco Tobacco use type: Cigarette e-Cigarette/Vaping Use: Never Used Second Hand Smoke Exposure: No service: No Current occupational status: employed Current occupation: auto, referee, rock climbing, rt hand Cognitive needs: No Hearing needs: No Vision needs: Yes Review of Systems Const All systems reviewed & are unremarkable except as noted in HPI and below Reports no additional complaints Eyes Reports no additional complaints ENT Reports no additional complaints Card Reports no additional complaints Resp Reports no additional complaints GI Reports no additional complaints Reports as per HPI Musc Reports no additional complaints Skin/Breast Reports system reviewed and no additional complaints, except as documented Neuro Reports no additional complaints Psych Reports no additional complaints Endo Reports no additional complaints Kody/Lymph Reports no additional complaints Aller/Immun Reports no additional complaints Office Procedures Post Void Residual Post Residual Void Post Void Residual (PVR): 49 [id number]-Uwim Void Residual by ultrasound Results AMB Urinalysis, Automated UA Leukoctes 0 Chen/uL Last Edit by Kristen Johansen CMA on 07/17/24 08:57 UA Nitrite Negative Last Edit by Kristen Johansen, JACOB on 07/17/24 08:57 UA Urobilinogen 0.2 mg/dL Last Edit by Kristen Johansen, JACOB on 07/17/24 08:57 UA Protein 15 mg/dL Last Edit by Kristen Johansen, JACOB on 07/17/24 08:57 UA pH 6.0 Last Edit by Kristen Johansen, JACOB on 07/17/24 08:57 UA Blood 0 Ed/uL Last Edit by Kristen Johansen, JACOB on 07/17/24 08:57 UA Specific [place] 1.020 Last Edit by Kristen Johansen CMA on 07/17/24 08:57 UA Ketone Negative Last Edit by Kristen Johansen CMA on 07/17/24 08:57 UA Bilirubin 0 mg/dL Last Edit by Kristen Johansen CMA on 07/17/24 08:57 UA Glucose 0 mg/dL Last Edit by Kristen Johansen CMA on 07/17/24 08:57 Results Reviewed Results Reviewed: Date of Service: 05/05/24 US RETROPERITONEAL COMPLETE (RENAL) CLINICAL INFORMATION: Bilateral renal stones. COMPARISON: CT abdomen and pelvis 03/24/2024. Ultrasound kidneys and bladder 10/19/2022. TECHNIQUE: Real-time imaging of the kidneys and bladder. Limited visualization due to bowel gas. FINDINGS: RIGHT KIDNEY: 12.2 x 5.8 x 6.4 cm (SAG x AP x TRV). No hydronephrosis. Right renal 0.8 cm lower pole calculus. Small lower pole cortical calcification. 1.8 cm lower pole cyst with benign features. There is no indication for followup imaging. LEFT KIDNEY: 13.1 x 6.7 x 5.9 cm (SAG x AP x TRV). No hydronephrosis. Small mid and lower pole cortical calcifications. Renal cortical thickness is normal. Limited visualization. 1.2 cm midpole cyst with peripheral calcification, almost certainly benign. BLADDER: Partially distended. Bilateral ureteral jets are demonstrated. Prevoid bladder volume is 124.0 mL. Postvoid bladder volume is 21.2 mL. PROSTATE GLAND: The prostate gland is enlarged with a volume of 54.1 mL. Prostate gland appears lobulated with masslike projection into the bladder, possibly related to prostate gland, although bladder wall mass could also be considered. IMPRESSION: 1. Bilateral renal calcifications, as detailed above. No hydronephrosis. 2. Prostate gland appears lobulated with masslike projection into the bladder, possibly related to prostate gland, although bladder wall mass could also be considered. Date of Service: 10/19/22 EXAMINATION: US RETROPERITONEAL COMPLETE (RENAL) CLINICAL INFORMATION: Calculus of kidney. COMPARISON: None available. TECHNIQUE: Real-time imaging of the kidneys and bladder. FINDINGS: RIGHT KIDNEY: 11.5 x 7.0 x 5.9 cm (SAG x AP x TRV). The kidney is normal in size, contour, and echogenicity. Renal cortical thickness is normal. No hydronephrosis. 1.7 cm benign-appearing cyst. Lower pole 2 mm nonobstructing stone. LEFT KIDNEY: 12.2 x 6.9 x 5.8 cm (SAG x AP x TRV). The kidney is normal in size, contour, and echogenicity. Renal cortical thickness is normal. No hydronephrosis. Nonobstructing stones measuring up to 4 mm. Cysts with peripheral calcifications measuring up to 1.9 cm, almost certainly benign. BLADDER: Well distended and normal. Bilateral ureteral jets are demonstrated. Prevoid bladder volume is 209 mL. Postvoid bladder volume is 127 mL. ADDITIONAL FINDINGS: Prostate is markedly enlarged measuring approximately 38 mL. IMPRESSION: * Bilateral nonobstructing nephrolithiasis. * Left renal cysts with peripheral calcifications measuring up to 1.9 cm, almost certainly benign. * Prostatomegaly with large postvoid residual of 127 mL. Assessment & Plan Assessment & Plan (1) BPH loc w urin obs/LUTS: Code(s): N40.1 - Benign prostatic hyperplasia with lower urinary tract symptoms Category: Medical (2) Bilateral renal stones: Code(s): N20.0 - Calculus of kidney Category: Medical (3) Elevated PSA: Code(s): R97.20 - Elevated prostate specific antigen [PSA] Category: Medical (4) Family history of prostate cancer: Code(s): Z80.42 - Family history of malignant neoplasm of prostate Category: Medical Plan Office cysto. Cont tamsulosin. Start avodart. PSA in 4 months Right ESWL. Continue tamsulosin 0.4 mg QD. Orders: Orders AMB Urinalysis Automated Today Z13.9 - Encounter for screening, unspecified PSA,Total (Free>4and<10) 3 Months R97.20 - Elevated prostate specific antigen [PSA], Z80.42 - Family history of malignant neoplasm of prostate AMB Post Void Residual by ultrasound Today N40.1 - Benign prostatic hyperplasia with lower urinary tract symptoms Medications: New dutasteride (Avodart) 0.5 mg PO DAILY 30 caps 3RF Refilled tamsulosin 0.4 mg PO BEDTIME 90 days 90 caps 3RF N40.1 - Benign prostatic hyperplasia with lower urinary tract symptoms Patient Instructions: The patient had an opportunity to ask questions regarding treatment plan. The patient expressed understanding and agreement with the above treatment plan. The patient is aware they should contact our office by phone for worsening of their current condition or the appearance of new symptoms. Compliance is encouraged with any medications and followup testing that is ordered. It is a privilege to be allowed the opportunity to participate in the urologic care of your patient. If you have any questions or concerns regarding treatment for the above conditions please do not hesitate to contact me. The office telephone contact is [phone]. This note is constructed in part using voice recognition software. While every effort has been made to ensure accuracy folder machine adjuster errors may have been included. Yours sincerely, Alexandrea Cramer MD Coding Level of Care Code Est Pt Level 4 (22622) Diagnoses BPH loc w urin obs/LUTS N40.1 Bilateral renal stones N20.0 Elevated PSA R97.20 Family history of prostate cancer Z80.42 CPT Codes Post Residual Void - PVR CPT Code: 34522-Kwzl Void Residual by ultrasound ([id number])
== END 2024-07-17 09:22 | disposition home or self-care (01) ==
PROVIDERS: PCP Internal Medicine; Visit Provider Urology
DX: N40.1 Benign prostatic hyperplasia with lower urinary tract symptoms (principal); N20.0 Calculus of kidney; R97.20 Elevated prostate specific antigen [PSA]; Z80.42 Family history of malignant neoplasm of prostate; Z13.9 Encounter for screening, unspecified
CPT/HCPCS: 99214

== ENCOUNTER → 2024-07-17 08:24 | Outpatient (BNVA) | payer OTHER, SELFPAY | PROVIDERS: PCP Internal Medicine; Visit Provider Urology | DX: N40.1 Benign prostatic hyperplasia with lower urinary tract symptoms (principal); N13.8 Other obstructive and reflux uropathy; N20.0 Calculus of kidney; R97.20 Elevated prostate specific antigen [PSA]; Z80.42 Family history of malignant neoplasm of prostate; Z79.899 Other long term (current) drug therapy | CPT/HCPCS: 51798; 81003 ==

== ENCOUNTER 2024-08-29 09:05 | Outpatient (AMB) | payer BC, SELFPAY ==
--- NOTE | 2024-08-29 09:18 | MHC.OFFVIS ---
Intake Visit Reasons: cysto (BPH) Intake Note: Patient is present for cystoscopy Urology Meds: tamsulosin, dutasteride Antibiotic Allergies: none Blood Thinners: none URO G-HD Disposable Cystoscope LOT: [id number] EXP: 11/07/26 Director Selection And Administration Required: No Accompanied by: Self / Same As Patient Allergies No Known Allergies Allergy (Verified 08/29/24 09:29) HPI Comments Details: 08/29/24--Here for office cystoscopy: Mitchle is a 59-year-old male presenting with Benign Prostatic Hyperplasia (BPH). He has a known history of nephrolithiasis, with the largest kidney stone measuring 8 mm located in the right lower pole identified on a renal ultrasound dated May 05, 2024. The patient has been previously managed with tamsulosin and Avodart for BPH, which have provided variable symptomatic relief. He reports nocturia with inconsistent frequency and variable urine flow. Currently, a shock wave lithotripsy is scheduled for the right kidney stone, and there are discussions regarding possible prostate laser treatment to alleviate urinary symptoms if current management remains inadequate post-procedure. No past history of nicotine use or substance abuse. Urinary Symptoms Review - Variable urine flow with medication (tamsulosin and Avodart) - Nocturia, two to four times on some nights - Intermittent urine flow inconsistency - No reported pain during urination Results - Imaging: Renal ultrasound on 05/05/24 noted an 8 mm kidney stone in the right kidney lower pole. - Procedure: 08/29/24--Office Cystoscopy revealed bladder wall thickening, enlarged prostate, bilobar enlargement, prominent median lobe. 07/17/24--Mitchel is a 59-year-old male who presents to the office for FU for evaluation of BPH and kidney stones. FH father had prostate cancer. Review renal US results, bilateral kidney stones, largest right kidney 8 mm right kidney lower pole. Discussed risks to include but not limited to, blood in the urine, bruising to the skin, kidney hematoma, possible need for another procedure if a stone fragment obstructs the ureter while passing, possible need to repeat procedure if stone is not completely fragmented. Office cysto. Cont tamsulosin. Start avodart. PSA--03/18/24--3.26 ng/mL Renal US--- 05/05/24--RIGHT KIDNEY: 0.8 cm lower pole calculus. 1.8 cm lower pole cyst with benign features, no indication for followup imaging. LEFT KIDNEY: Small mid and lower pole cortical calcifications. 1.2 cm midpole cyst with peripheral calcification, almost certainly benign. PROSTATE GLAND: The prostate gland is enlarged with a volume of 54.1 mL. Prostate gland appears lobulated with masslike projection into the bladder, possibly related to prostate gland, although bladder wall mass could also be considered. 07/16/23--Mitchel states he is using the tamsulosin, I have reviewed the 24 hr urine results with him. Discussed 24 hour urine results: Total volume 0.72 L, Calcium 102 mg; Oxalate 23 mg, Sodium 66, Citrate 665 mg. Instructed on importance of fluid intake, Low oxalate diet, low sodium diet. followed by hematology-oncology ---recently diagnosed with leukemia. pt states has passed kidney stones in the past. states his father had history of prostate cancer. States that his brother also had history of cancer and underwent colostomy but is not sure about the type of cancer Results: PSA results reviewed--10/10/22-- 2.53. Renal US results reviewed--10/19/22-- Left renal cysts measuring up to 1.9 cm. Bilateral nonobstructing kidney stones, Prostatomegaly with PVR--127 mL. 12/18/22 prostate exam-- Mild to moderately enlarged, irregular, no suspicious nodules palpated. AUA symptom score: 15. [facility] Medical History Asthmatic bronchitis Screening PSA (prostate specific antigen) Kidney stones BPH (benign prostatic hyperplasia) Leucocytosis Mass of left side of neck Frequency of micturition Renal calculus, right Peripheral vascular disease Thrombocytopenia Obesity (BMI 30-39.9) Right shoulder pain Surgical History Hx of colonoscopy History of lumbar surgery Hx of tonsillectomy Family History Mother Dementia Father Parkinson disease Prostate cancer Brother No problems noted. Brother Rectal cancer Sister No problems noted. Daughter No problems noted. Son No problems noted. Social History Household Members: Spouse Housing: House Alcohol intake: never Patient Tobacco Use Status: Never used Tobacco Tobacco use type: Cigarette e-Cigarette/Vaping Use: Never Used Second Hand Smoke Exposure: No service: No Current occupational status: employed Current occupation: auto, referee, rock climbing, rt hand Cognitive needs: No Hearing needs: No Vision needs: Yes Review of Systems Const All systems reviewed & are unremarkable except as noted in HPI and below Reports no additional complaints Eyes Reports no additional complaints ENT Reports no additional complaints Card Reports no additional complaints Resp Reports no additional complaints GI Reports no additional complaints Reports as per HPI Musc Reports no additional complaints Skin/Breast Reports system reviewed and no additional complaints, except as documented Neuro Reports no additional complaints Psych Reports no additional complaints Endo Reports no additional complaints Kody/Lymph Reports no additional complaints Aller/Immun Reports no additional complaints Office Procedures Cystoscopy Consent Discussed risk and benefit or proposed procedure with the patient. Information consent for procedure given to the patient. Discussed technical aspects, risks, benefits and alternatives in full. Addressed all of the patient's questions and concerns regarding the procedure. The patient demonstrated knowledge and understanding. They wish to proceed with this procedure. Preparation The patient was prepped in the usual manner. A cabana attendant was present and in the room. Genitalia was prepped with betadine solution in a sterile manner. Lidocaine Jelly 2% was placed into the urethra and 16Fr flexible Olympus cystoscope was inserted into the meatus after adequate lubrication. Procedure Time out per protocol performed. Bladder Inspection Bladder Inspection: The bladder was inspected in its entirety with utilization retroflexion displaying: Tumor(s): no suspicious bladder lesions visualized Trabeculation: Mild to Moderate Mucosal Erthema: mild Orifices: normal shape and position Urethra: normal Cystoscopy findings: prostatic urethra bilobar enlargement, prominent median lobe of prostate. bulbous urethra WNL, no suspicious bladder lesions visualized [id number] DISPOSABLE SCOPE URO-G FLEXIBLE SCOPE Procedure code (CPT) selection complete Office Meds lidocaine HCl 2 % mucosal jelly in applicator Performing Provider: Alexandrea Cramer MD [place] [facility] [place] [facility] Administered by: Dashawn Garza LPN on 08/29/24 09:38 Dose Route Admin Location Dispensed Lot Number Expiration Date ND Bulb Grader 10 mL intra-urethral 20 mL ciprofloxacin HCl 500 mg tablet Performing Provider: Alexandrea Cramer MD Performing Location[place] [facility] [place] [facility] Administered by: Dashawn Garza LPN on 08/29/24 09:38 Dose Route Admin Location Dispensed Lot Number Expiration Date NDC Bulb Grader 500 mg PO 1 tab Results AMB Urinalysis, Automated UA Leukoctes 0 Chen/uL Last Edit by Katharine Lehman MA on 08/29/24 09:30 UA Nitrite Negative Last Edit by Katharine Lehman MA on 08/29/24 09:30 UA Urobilinogen 0.2 mg/dL Last Edit by Katharine Lheman MA on 08/29/24 09:30 UA Protein 0 mg/dL Last Edit by Katharine Lehman MA on 08/29/24 09:30 UA pH 6.0 Last Edit by Katharine Lehman MA on 08/29/24 09:30 UA Blood 0 Ed/uL Last Edit by Katharine Lehman MA on 08/29/24 09:30 UA Specific [place] 1.025 Last Edit by Katharine Lehman MA on 08/29/24 09:30 UA Ketone Negative Last Edit by Katharine Lehman MA on 08/29/24 09:30 UA Bilirubin 0 mg/dL Last Edit by Katharine Lehman MA on 08/29/24 09:30 UA Glucose 0 mg/dL Last Edit by Katharine Lehman MA on 08/29/24 09:30 Results Reviewed Results Reviewed: Laboratory Last Values Urine pH (Auto) 6.0 08/29/24 09:28 Specific [place] (Auto) 1.025 08/29/24 09:28 Urine Protein (Auto) 0 mg/dL 08/29/24 09:28 Glucose (UA)(Auto) 0 mg/dL 08/29/24 09:28 Urine Ketones (Auto) Negative 08/29/24 09:28 Urine Blood (Auto) 0 Ed/uL 08/29/24 09:28 Urine Nitrite (Auto) Negative 08/29/24 09:28 Urine Bilirubin (Auto) 0 mg/dL 08/29/24 09:28 Urine Urobilinogen (Auto) 0.2 mg/dL 08/29/24 09:28 Leukocyte Esterase (Auto) 0 Chen/uL 08/29/24 09:28 Date of Service: 05/05/24 US RETROPERITONEAL COMPLETE (RENAL) CLINICAL INFORMATION: Bilateral renal stones. COMPARISON: CT abdomen and pelvis 03/24/2024. Ultrasound kidneys and bladder 10/19/2022. TECHNIQUE: Real-time imaging of the kidneys and bladder. Limited visualization due to bowel gas. FINDINGS: RIGHT KIDNEY: 12.2 x 5.8 x 6.4 cm (SAG x AP x TRV). No hydronephrosis. Right renal 0.8 cm lower pole calculus. Small lower pole cortical calcification. 1.8 cm lower pole cyst with benign features. There is no indication for followup imaging. LEFT KIDNEY: 13.1 x 6.7 x 5.9 cm (SAG x AP x TRV). No hydronephrosis. Small mid and lower pole cortical calcifications. Renal cortical thickness is normal. Limited visualization. 1.2 cm midpole cyst with peripheral calcification, almost certainly benign. BLADDER: Partially distended. Bilateral ureteral jets are demonstrated. Prevoid bladder volume is 124.0 mL. Postvoid bladder volume is 21.2 mL. PROSTATE GLAND: The prostate gland is enlarged with a volume of 54.1 mL. Prostate gland appears lobulated with masslike projection into the bladder, possibly related to prostate gland, although bladder wall mass could also be considered. IMPRESSION: 1. Bilateral renal calcifications, as detailed above. No hydronephrosis. 2. Prostate gland appears lobulated with masslike projection into the bladder, possibly related to prostate gland, although bladder wall mass could also be considered. Date of Service: 10/19/22 EXAMINATION: US RETROPERITONEAL COMPLETE (RENAL) CLINICAL INFORMATION: Calculus of kidney. COMPARISON: None available. TECHNIQUE: Real-time imaging of the kidneys and bladder. FINDINGS: RIGHT KIDNEY: 11.5 x 7.0 x 5.9 cm (SAG x AP x TRV). The kidney is normal in size, contour, and echogenicity. Renal cortical thickness is normal. No hydronephrosis. 1.7 cm benign-appearing cyst. Lower pole 2 mm nonobstructing stone. LEFT KIDNEY: 12.2 x 6.9 x 5.8 cm (SAG x AP x TRV). The kidney is normal in size, contour, and echogenicity. Renal cortical thickness is normal. No hydronephrosis. Nonobstructing stones measuring up to 4 mm. Cysts with peripheral calcifications measuring up to 1.9 cm, almost certainly benign. BLADDER: Well distended and normal. Bilateral ureteral jets are demonstrated. Prevoid bladder volume is 209 mL. Postvoid bladder volume is 127 mL. ADDITIONAL FINDINGS: Prostate is markedly enlarged measuring approximately 38 mL. IMPRESSION: * Bilateral nonobstructing nephrolithiasis. * Left renal cysts with peripheral calcifications measuring up to 1.9 cm, almost certainly benign. * Prostatomegaly with large postvoid residual of 127 mL. Assessment & Plan Assessment & Plan (1) BPH loc w urin obs/LUTS: Code(s): N40.1 - Benign prostatic hyperplasia with lower urinary tract symptoms Category: Medical (2) Bilateral renal stones: Code(s): N20.0 - Calculus of kidney Category: Medical (3) Elevated PSA: Code(s): R97.20 - Elevated prostate specific antigen [PSA] Category: Medical (4) Family history of prostate cancer: Code(s): Z80.42 - Family history of malignant neoplasm of prostate Category: Medical Plan Discussion Notes I discussed with the patient the plan for proceeding with the extracorporeal shock wave lithotripsy (ESWL) procedure on September 03, 2024, to address the right kidney stone. Informed consent was obtained after explaining the process of using anesthesia and focusing shock wave lithotripsy to break the stone into smaller fragments. I reviewed the potential risks, including rare hematomas and the expectation of mild hematuria and kidney bruising. The patient was informed about the expected passage process post-procedure, including the need for increased fluid intake. Re: BPH--The potential for future prostate laser treatment was discussed should the patient's urinary symptoms persist. Follow-up post-procedure has been advised for further assessment. Plan The current management is to maintain tamsulosin and Avodart for BPH, with an anticipated ESWL scheduled for September 03, 2024, to treat the kidney stone. The ESWL procedure will be performed under anesthesia to address the 8 mm stone, which will be fragmented to allow easier passage. We anticipate discussing prostate laser treatment if urinary symptoms persist post-lithotripsy. The ESWL procedure bears minimal risk, but patient consent has been obtained after discussing potential risks, such as bruising or rare hematomas. We will observe and reassess the patient's condition post-procedure to guide further management of BPH symptoms. Orders: Orders AMB Urinalysis Automated Today Z13.9 - Encounter for screening, unspecified AMB Cystoscopy Today N40.1 - Benign prostatic hyperplasia with lower urinary tract symptoms, Z80.42 - Family history of malignant neoplasm of prostate Patient Instructions: Patient Instructions - Continue taking tamsulosin and Avodart as prescribed. - Stay hydrated to aid in kidney stone passage after lithotripsy. - Attend the scheduled ESWL on September 03, 2024. - Monitor for any changes in urinary symptoms and report if significant. - Attend follow-up appointments to reassess urinary symptoms and medication efficacy. - Contact the office if there are any concerns or symptoms following the procedure, such as unusual pain or severe hematuria. - Rest and avoid strenuous activity post-procedure until cleared. The patient had an opportunity to ask questions regarding treatment plan. The patient expressed understanding and agreement with the above treatment plan. The patient is aware they should contact our office by phone for worsening of their current condition or the appearance of new symptoms. Compliance is encouraged with any medications and followup testing that is ordered. It is a privilege to be allowed the opportunity to participate in the urologic care of your patient. If you have any questions or concerns regarding treatment for the above conditions please do not hesitate to contact me. The office telephone contact is [phone]. This note is constructed in part using voice recognition software. While every effort has been made to ensure accuracy administrative professional errors may have been included. Yours sincerely, Alexandrea Cramer MD Scribe Plan - Not visible on output: Patient was informed and verbally consented to the use of an ambient scribe for clinic note documentation during this visit. Coding Level of Care Code Est Pt Level 3 (40015) Diagnoses BPH loc w urin obs/LUTS N40.1 Bilateral renal stones N20.0 Elevated PSA R97.20 Family history of prostate cancer Z80.42 CPT Codes Cystoscopy - CPT: [id number] ([id number])
== END 2024-08-29 10:05 | disposition home or self-care (01) ==
PROVIDERS: PCP Internal Medicine; Visit Provider Urology
DX: N40.1 Benign prostatic hyperplasia with lower urinary tract symptoms (principal); N20.0 Calculus of kidney; R97.20 Elevated prostate specific antigen [PSA]; Z80.42 Family history of malignant neoplasm of prostate; Z13.9 Encounter for screening, unspecified
CPT/HCPCS: 52000; 99213

== ENCOUNTER → 2024-08-29 09:05 | Outpatient (BNVA) | payer BC, SELFPAY | PROVIDERS: PCP Internal Medicine; Visit Provider Urology | DX: N40.1 Benign prostatic hyperplasia with lower urinary tract symptoms (principal); N13.8 Other obstructive and reflux uropathy; N20.0 Calculus of kidney; R97.20 Elevated prostate specific antigen [PSA]; Z80.42 Family history of malignant neoplasm of prostate | CPT/HCPCS: 52000; 81003 ==

== ENCOUNTER 2024-09-03 05:56 | Day surgery (SDC) | payer BC, SELFPAY ==
[2024-09-01 13:17] VITALS: BMI 31.6
--- NOTE | ~2024-09-03 | XR_ITS ---
CLINICAL HISTORY: right kidney stone 1 view abdomen Comparison: None Findings: No pneumoperitoneum or pneumatosis. No definite right-sided renal stone is identified. No stones overlie the left kidney. Calcification within the pelvis is consistent with phleboliths. No acute fractures. IMPRESSION: No discrete urinary stone identified. This document has been electronically signed by: Kylee Oswald MD on 09/03/2024 06:40:24
[2024-09-03 07:00] VITALS: BP 130/66; PULSE 58; RESP 18; TEMP 36.6; O2SAT 97; BMI 31.0
[2024-09-03] MEDS: Lactated Ringers 1,000 ML 100 ML IVCONT (07:16)
--- NOTE | 2024-09-03 07:24 | P.CONAN_ITS ---
Documented by User: Soco Leung NP 09/02/24 10:05 HPI - Anesthesia Eval Consult details Narrative: 59yo M for Right Lithotripsy ESW Follows [facility] [place] onocolgy for CLL. On daily oral tx AAA @ 4.0cm PMFSH Active Problems Active Problems: All Active Problems Family history of prostate cancer (Acute) Elevated PSA (Acute) Right flank pain (Acute) History of recent pneumonia (Acute) Environmental allergies (Acute) Pleural effusion, left (Acute) Ascending aorta dilatation (Acute) Persistent cough (Acute) Cough (Acute) Midsternal chest pain (Acute) Bronchitis (Acute) Tubular adenoma of colon (Acute) Annual physical exam (Acute) CLL (chronic lymphocytic leukemia) (Acute) BPH loc w urin obs/LUTS (Acute) Bilateral renal stones (Acute) Family history of rectal cancer (Acute) Blood pressure elevated without history of HTN (Acute) Obesity (BMI 30.0-34.9) (Acute) Contusion of left thumb (Acute) Past Medical History Medical History (Updated 09/02/24 @ 09:21 by Donna Ferrer RN) CLL (chronic lymphocytic leukemia) Ascending aorta dilatation Asthmatic bronchitis Screening PSA (prostate specific antigen) Kidney stones BPH (benign prostatic hyperplasia) Leucocytosis Mass of left side of neck Frequency of micturition Renal calculus, right Peripheral vascular disease Thrombocytopenia Obesity (BMI 30-39.9) Right shoulder pain Family History Family History Mother Dementia Father Parkinson disease Prostate cancer Brother No problems noted. Brother Rectal cancer Sister No problems noted. Daughter No problems noted. Son No problems noted. Family history of problems with anesthesia: No Surgical History Surgical History (Updated 09/01/24 @ 13:11 by Yamila Felipe RN) History of bone marrow biopsy Hx of colonoscopy History of lumbar surgery Hx of tonsillectomy History of Problems with Anesthesia: No Social History Social History Household Members: Spouse Housing: House Alcohol intake: never Patient Tobacco Use Status: Never used Tobacco Tobacco use type: Cigarette e-Cigarette/Vaping Use: Never Used Second Hand Smoke Exposure: No Use of substances other than those prescribed or required for medical reasons: No Are you DNR?: No Advance Directives: No Advance Directives Information Provided: Yes service: No Current occupational status: employed Current occupation: auto, referee, rock climbing, rt hand Cognitive needs: No Hearing needs: No Vision needs: Yes Meds Allergies Allergy/AdvReac Type Severity Reaction Status Date / Time No Known Allergies Allergy Verified 09/03/24 06:58 Home Medications ?Medication ?Instructions ?Recorded ?Confirmed ?Last Taken ?Type Calquence 100 mg PO BID 09/03/24 09/03/24 Unknown History Exam Height,Weight and Vital Signs: Height 6 ft 3 in Weight 114.759 kg Pertinent Lab Results Pertinent Lab Results: Laboratory Tests 07/14/24 10:50 WBC 6.6 Hgb 16.9 Hct 50.7 Plt Count 144 L Sodium 144 Potassium 4.7 Chloride 110 H Carbon Dioxide 31 H BUN 14 Creatinine 0.83 Narrative Narrative: ECHO 2023 Conclusions: - The left ventricular systolic function is normal. The calculated ejection fraction is 61% by biplane method. - There is mildly increased left ventricular wall thickness. - No obvious valvular pathology seen on this study. - There is mild dilatation of the ascending aorta measuring 4.00 cm. Assessment and Plan Assessment Anesthesia Assessment: Chart Reviewed Final Anesthetic Review Family History of Problems with Anesthesia: No History of Problems with Anesthesia: No Documented by User: Donna Peguero DO 09/03/24 07:26 [facility] Past Medical History Medical History (Updated 09/02/24 @ 09:21 by Donna Ferrer RN) CLL (chronic lymphocytic leukemia) Ascending aorta dilatation Asthmatic bronchitis Screening PSA (prostate specific antigen) Kidney stones BPH (benign prostatic hyperplasia) Leucocytosis Mass of left side of neck Frequency of micturition Renal calculus, right Peripheral vascular disease Thrombocytopenia Obesity (BMI 30-39.9) Right shoulder pain Family History Family History Mother Dementia Father Parkinson disease Prostate cancer Brother No problems noted. Brother Rectal cancer Sister No problems noted. Daughter No problems noted. Son No problems noted. Family history of problems with anesthesia: No Surgical History Surgical History (Updated 09/01/24 @ 13:11 by Yamila Felipe RN) History of bone marrow biopsy Hx of colonoscopy History of lumbar surgery Hx of tonsillectomy History of Problems with Anesthesia: No Social History Social History Household Members: Spouse Housing: House Alcohol intake: never Patient Tobacco Use Status: Never used Tobacco Tobacco use type: Cigarette e-Cigarette/Vaping Use: Never Used Second Hand Smoke Exposure: No Use of substances other than those prescribed or required for medical reasons: No Are you DNR?: No Advance Directives: No Advance Directives Information Provided: Yes service: No Current occupational status: employed Current occupation: auto, referee, rock climbing, rt hand Cognitive needs: No Hearing needs: No Vision needs: Yes Meds Allergies Allergy/AdvReac Type Severity Reaction Status Date / Time No Known Allergies Allergy Verified 09/03/24 06:58 Home Medications ?Medication ?Instructions ?Recorded ?Confirmed ?Last Taken ?Type Calquence 100 mg PO BID 09/03/24 09/03/24 Unknown History Exam Exam Date and Time: 09/03/24 0725 Height,Weight and Vital Signs: Height 6 ft 3 in Weight 114.759 kg Vital Signs Temperature 97.9 F 09/03/24 07:00 Pulse Rate 58 09/03/24 07:00 Respiratory Rate 18 09/03/24 07:00 Blood Pressure 130/66 09/03/24 07:00 Pulse Oximetry 97 09/03/24 07:00 Oxygen Delivery Method Room Air 09/03/24 07:00 Temperature 97.9 F 09/03/24 07:00 Pulse Rate 58 09/03/24 07:00 Respiratory Rate 18 09/03/24 07:00 Blood Pressure 130/66 09/03/24 07:00 Pulse Oximetry 97 09/03/24 07:00 Oxygen Delivery Method Room Air 09/03/24 07:00 Airway Mallampati Class: II TM Dist: >3cm Neck ROM: Full Loose/Missing/Broken Teeth: No (patient denies any loose or broken teeth) Heart: S1S2 Lungs: CTAB Assessment and Plan Assessment Anesthesia Assessment: Anesthesia Plan Discussed and Chart Reviewed Final Anesthetic Review Family History of Problems with Anesthesia: No History of Problems with Anesthesia: No NPO: Yes ASA Class: III Final Preanesthetic Review: No Changes in Pt Med Stat, Meds/Allgs Chart Reviewed, Consent Obtained/Reviewed and Anes Risks/Benef Reviewed Patient Risk: Intermediate Procedure Risk: Low Anesthetic Plan Anesthetic Plan: MAC: and Agree w/ Assess. and Plan Disposition: Standard PACU
--- NOTE | 2024-09-03 07:36 | W.PM.OPN ---
Operative Note Operative Note Date of Service: 09/03/24 Narrative: PreOperative Diagnosis:? ?Right Renal stone Post Operative Diagnosis:? Right? Renal stone Procedure:? Right? ESWL Surgeon:?Dr Alexandrea Cramer Anesthesia:? Monitored IV sedation Indications for procedure: The patient understands there is a risk of bruising or hematoma to the kidney, infection, and stone migration following the procedure and subsequent intervention may be required.? - Imaging 12 mm stone right kidney lower pole seen well on ultrasound. Procedure: After informed consent was verified the patient was brought to the operating room and placed in a supine position.? Anesthesia was performed per protocol. Safety pause time-out was performed. Imaging was displayed in the room and laterality confirmed. ESWL was performed.?The stone was visualized on both fluoroscopy and ultrasound.? Shockwave lithotripsy was performed, with a maximum rate of 120 hertz. After the first 300 shocks a pause for 3 minutes was completed.? A total of 2500 shocks to a maximum of power of 18 with a maximum rate of 120 hertz.? Some fragmentation of the stone was appreciated. The patient tolerated the procedure well and was transferred to the recovery area upon completion. Complications: None
--- NOTE | 2024-09-03 07:36 | MHC.SHP ---
Pre-Procedural Eval Section A - 24 Hr Update-Section A only Date of Service: 09/03/24 The patient is an INPATIENT: No The patient has been examined within 24 hours of the surgical procedure. The History & Physical has been completed within 30 days and I have reviewed it.: Yes Section B - Complete if H&P > 30 days Chief Complaint: Calculus of kidney Allergies: Allergies Allergy/AdvReac Type Severity Reaction Status Date / Time No Known Allergies Allergy Verified 09/03/24 06:58 Plan Diagnosis/Plan: Unchanged I have reviewed the history and physical and performed a pertinent physical examination on my patient. No changes have occurred unless specified. Right ESWL. Discussed risks to include but not limited to, blood in the urine, bruising to the skin, kidney hematoma, possible need for another procedure if a stone fragment obstructs the ureter while passing, possible need to repeat procedure if stone is not completely fragmented. Time Spent With Patient Time: Total time managing care of this patient today ____ minutes.
[2024-09-03] MEDS: ceFAZolin Sodium/Dextrose,Iso 2 GM/50 ML PIGGYBACK IV (07:45)
[2024-09-03 08:19] VITALS: BP 115/64; PULSE 75; RESP 22; TEMP 36.7; O2SAT 96
[2024-09-03 08:24] VITALS: BP 114/61; PULSE 73; RESP 17; O2SAT 96
[2024-09-03 08:34] VITALS: BP 121/67; PULSE 68; RESP 19; TEMP 36.7; O2SAT 97
== END 2024-09-03 08:59 | disposition home or self-care (01) ==
PROVIDERS: PCP Internal Medicine; Visit Provider Urology
PROC: (CPT 50590; principal; 2024-09-03 07:30)
DX: N20.0 Calculus of kidney (principal); Z87.442 Personal history of urinary calculi; N40.1 Benign prostatic hyperplasia with lower urinary tract symptoms; R35.0 Frequency of micturition; R35.1 Nocturia; R97.20 Elevated prostate specific antigen [PSA]; D72.829 Elevated white blood cell count, unspecified; I73.9 Peripheral vascular disease, unspecified; D69.6 Thrombocytopenia, unspecified; E66.9 Obesity, unspecified; Z80.42 Family history of malignant neoplasm of prostate; Z79.899 Other long term (current) drug therapy
CPT/HCPCS: 50590; 74018; J0131; J0690; J1100; J1885; J1940; J2003; J2405; J2704

== ENCOUNTER → 2024-09-03 05:56 | Outpatient (BNV) | payer BC, SELFPAY | PROVIDERS: PCP Internal Medicine; Visit Provider Urology | DX: N20.0 Calculus of kidney (principal) | CPT/HCPCS: 50590 ==

== ENCOUNTER → 2024-09-03 06:06 | Outpatient (BNV) | payer BC, SELFPAY | PROVIDERS: PCP Internal Medicine; Visit Provider Radiology Diagnostic Radiology | DX: N20.0 Calculus of kidney (principal) | CPT/HCPCS: 74018 ==

== ENCOUNTER 2024-10-07 10:21 | Outpatient (REF) | payer BC, SELFPAY ==
--- NOTE | ~2024-10-07 | US_ITS ---
CLINICAL HISTORY: N20.0 - Calculus of kidney US Renal Comparison: None Findings: Right kidney normal size and echotexture, 12.4 cm length. 7 mm calculus is seen in the lower pole. A 1.5 cm cyst is also seen in the lower pole. Left kidney normal size and echotexture, 12.2 cm length. No definitive calculi although there are several small echogenic foci without shadowing. Cysts are seen in the mid and upper poles measuring 0.9 and 1.6 cm in greatest dimension respectively. No hydronephrosis of either kidney. Normal color Doppler IMPRESSION: 1. Discrete right lower pole calculus measuring 7 mm. 2. Multiple small echogenic foci are seen bilaterally possibly nonobstructing calculi. 3. Small bilateral renal cysts. This document has been electronically signed by: Paco Hurt MD on 10/08/2024 10:08:18
== END 2024-10-07 10:22 | disposition home or self-care (01) ==
LOC: HO.US 10:21
PROVIDERS: PCP Internal Medicine; Visit Provider Urology
DX: N20.0 Calculus of kidney (principal)
CPT/HCPCS: 76775

== ENCOUNTER → 2024-10-07 10:22 | Outpatient (BNV) | payer BC, SELFPAY | PROVIDERS: PCP Internal Medicine; Visit Provider Radiology Diagnostic Radiology | DX: N20.0 Calculus of kidney (principal); N28.1 Cyst of kidney, acquired | CPT/HCPCS: 76775 ==

== ENCOUNTER 2024-10-17 09:59 | Outpatient (AMB) | payer OTHER, SELFPAY ==
--- NOTE | 2024-10-17 10:32 | A.OFFVIS_ITS ---
Intake Visit Reasons: ESWL, follow up/KUB Intake Note: Patient is present for a follow up/ESWL/KUB 09/03 KUB 10/08 Urology Med: Tamsulosin Antibiotic Allergy: None Blood Thinner: None PVR:0ml Accompanied by: Self / Same As Patient Allergies No Known Allergies Allergy (Verified 10/17/24 10:35) Medication List - Last Reconciled 10/17/24 by Alexandrea Cramer MD blood pressure monitor (Blood Pressure Kit) As directed [Calquence 100 mg PO BID] dutasteride (Avodart) 0.5 mg PO DAILY 90 days oxycodone-acetaminophen 5-325 mg (Percocet) 1 tab PO Q6-8H PRN solifenacin (Vesicare) 10 mg PO DAILY tamsulosin 0.4 mg PO BEDTIME 90 days HPI Comments Details: 08/29/24--Here for office cystoscopy: Mitchel is a 59-year-old male presenting with Benign Prostatic Hyperplasia (BPH). He has a known history of nephrolithiasis, with the largest kidney stone measuring 8 mm located in the right lower pole identified on a renal ultrasound dated May 05, 2024. The patient has been previously managed with tamsulosin and Avodart for BPH, which have provided variable symptomatic relief. He reports nocturia with inconsistent frequency and variable urine flow. Currently, a shock wave lithotripsy is scheduled for the right kidney stone, and there are discussions regarding possible prostate laser treatment to alleviate urinary symptoms if current management remains inadequate post-procedure. No past history of nicotine use or substance abuse. Urinary Symptoms Review - Variable urine flow with medication (tamsulosin and Avodart) - Nocturia, two to four times on some nights - Intermittent urine flow inconsistency - No reported pain during urination Results - Imaging: Renal ultrasound on 05/05/24 noted an 8 mm kidney stone in the right kidney lower pole. - Procedure: 08/29/24--Office Cystoscopy revealed bladder wall thickening, enlarged prostate, bilobar enlargement, prominent median lobe. 07/17/24--Mitchel is a 59-year-old male who presents to the office for FU for evaluation of BPH and kidney stones. FH father had prostate cancer. Review renal US results, bilateral kidney stones, largest right kidney 8 mm right kidney lower pole. Discussed risks to include but not limited to, blood in the urine, bruising to the skin, kidney hematoma, possible need for another procedure if a stone fragment obstructs the ureter while passing, possible need to repeat procedure if stone is not completely fragmented. Office cysto. Cont tamsulosin. Start avodart. PSA--03/18/24--3.26 ng/mL Renal US--- 05/05/24--RIGHT KIDNEY: 0.8 cm lower pole calculus. 1.8 cm lower pole cyst with benign features, no indication for followup imaging. LEFT KIDNEY: Small mid and lower pole cortical calcifications. 1.2 cm midpole cyst with peripheral calcification, almost certainly benign. PROSTATE GLAND: The prostate gland is enlarged with a volume of 54.1 mL. Prostate gland appears lobulated with masslike projection into the bladder, possibly related to prostate gland, although bladder wall mass could also be considered. 07/16/23--Mitchel states he is using the tamsulosin, I have reviewed the 24 hr uri ne results with him. Discussed 24 hour urine results: Total volume 0.72 L, Calcium 102 mg; Oxalate 23 mg, Sodium 66, Citrate 665 mg. Instructed on importance of fluid intake, Low oxalate diet, low sodium diet. followed by hematology-oncology ---recently diagnosed with leukemia. pt states has passed kidney stones in the past. states his father had history of prostate cancer. States that his brother also had history of cancer and underwent colostomy but is not sure about the type of cancer Results: PSA results reviewed--10/10/22-- 2.53. Renal US results reviewed--10/19/22-- Left renal cysts measuring up to 1.9 cm. Bilateral nonobstructing kidney stones, Prostatomegaly with PVR--127 mL. 12/18/22 prostate exam-- Mild to moderately enlarged, irregular, no suspicious nodules palpated. AUA symptom score: 15. [facility] Medical History CLL (chronic lymphocytic leukemia) Ascending aorta dilatation Asthmatic bronchitis Screening PSA (prostate specific antigen) Kidney stones BPH (benign prostatic hyperplasia) Leucocytosis Mass of left side of neck Frequency of micturition Renal calculus, right Peripheral vascular disease Thrombocytopenia Obesity (BMI 30-39.9) Right shoulder pain Surgical History History of bone marrow biopsy Hx of colonoscopy History of lumbar surgery Hx of tonsillectomy Family History Mother Dementia Father Parkinson disease Prostate cancer Brother No problems noted. Brother Rectal cancer Sister No problems noted. Daughter No problems noted. Son No problems noted. Social History Household Members: Spouse Housing: House Alcohol intake: never Patient Tobacco Use Status: Never used Tobacco Tobacco use type: Cigarette e-Cigarette/Vaping Use: Never Used Second Hand Smoke Exposure: No service: No Current occupational status: employed Current occupation: auto, referee, rock climbing, rt hand Cognitive needs: No Hearing needs: No Vision needs: Yes Results AMB Urinalysis, Automated UA Leukoctes 0 Chen/uL Last Edit by Emily Martin on 10/17/24 16:43 UA Nitrite Last Edit by Emily Martin on 10/17/24 16:43 UA Urobilinogen 0.2 mg/dL Last Edit by Emily Martin on 10/17/24 16:43 UA Protein 0 mg/dL Last Edit by Emily Martin on 10/17/24 16:43 UA pH 6.0 Last Edit by Emily Martin on 10/17/24 16:43 UA Blood 0 Ed/uL Last Edit by Emily Martin on 10/17/24 16:43 UA Specific [place] 1.020 Last Edit by Emily Martin on 10/17/24 16:43 UA Ketone Negative Last Edit by Emily Martin on 10/17/24 16:43 UA Bilirubin 0 mg/dL Last Edit by Emily Martin on 10/17/24 16:43 UA Glucose 0 mg/dL Last Edit by Emily Martin on 10/17/24 16:43 Results Reviewed Results Reviewed: Date of Service: 10/07/24 CLINICAL HISTORY: N20.0 - Calculus of kidney US Renal Comparison: None Findings: Right kidney normal size and echotexture, 12.4 cm length. 7 mm calculus is seen in the lower pole. A 1.5 cm cyst is also seen in the lower pole. Left kidney normal size and echotexture, 12.2 cm length. No definitive calculi although there are several small echogenic foci without shadowing. Cysts are seen in the mid and upper poles measuring 0.9 and 1.6 cm in greatest dimension respectively. No hydronephrosis of either kidney. Normal color Doppler IMPRESSION: 1. Discrete right lower pole calculus measuring 7 mm. 2. Multiple small echogenic foci are seen bilaterally possibly nonobstructing calculi. 3. Small bilateral renal cysts. Date of Service: 05/05/24 US RETROPERITONEAL COMPLETE (RENAL) CLINICAL INFORMATION: Bilateral renal stones. COMPARISON: CT abdomen and pelvis 03/24/2024. Ultrasound kidneys and bladder 10/19/2022. TECHNIQUE: Real-time imaging of the kidneys and bladder. Limited visualization due to bowel gas. FINDINGS: RIGHT KIDNEY: 12.2 x 5.8 x 6.4 cm (SAG x AP x TRV). No hydronephrosis. Right renal 0.8 cm lower pole calculus. Small lower pole cortical calcification. 1.8 cm lower pole cyst with benign features. There is no indication for followup imaging. LEFT KIDNEY: 13.1 x 6.7 x 5.9 cm (SAG x AP x TRV). No hydronephrosis. Small mid and lower pole cortical calcifications. Renal cortical thickness is normal. Limited visualization. 1.2 cm midpole cyst with peripheral calcification, almost certainly benign. BLADDER: Partially distended. Bilateral ureteral jets are demonstrated. Prevoid bladder volume is 124.0 mL. Postvoid bladder volume is 21.2 mL. PROSTATE GLAND: The prostate gland is enlarged with a volume of 54.1 mL. Prostate gland appears lobulated with masslike projection into the bladder, possibly related to prostate gland, although bladder wall mass could also be considered. IMPRESSION: 1. Bilateral renal calcifications, as detailed above. No hydronephrosis. 2. Prostate gland appears lobulated with masslike projection into the bladder, possibly related to prostate gland, although bladder wall mass could also be considered. Date of Service: 10/19/22 EXAMINATION: US RETROPERITONEAL COMPLETE (RENAL) CLINICAL INFORMATION: Calculus of kidney. COMPARISON: None available. TECHNIQUE: Real-time imaging of the kidneys and bladder. FINDINGS: RIGHT KIDNEY: 11.5 x 7.0 x 5.9 cm (SAG x AP x TRV). The kidney is normal in size, contour, and echogenicity. Renal cortical thickness is normal. No hydronephrosis. 1.7 cm benign-appearing cyst. Lower pole 2 mm nonobstructing stone. LEFT KIDNEY: 12.2 x 6.9 x 5.8 cm (SAG x AP x TRV). The kidney is normal in size, contour, and echogenicity. Renal cortical thickness is normal. No hydronephrosis. Nonobstructing stones measuring up to 4 mm. Cysts with peripheral calcifications measuring up to 1.9 cm, almost certainly benign. BLADDER: Well distended and normal. Bilateral ureteral jets are demonstrated. Prevoid bladder volume is 209 mL. Postvoid bladder volume is 127 mL. ADDITIONAL FINDINGS: Prostate is markedly enlarged measuring approximately 38 mL. IMPRESSION: * Bilateral nonobstructing nephrolithiasis. * Left renal cysts with peripheral calcifications measuring up to 1.9 cm, almost certainly benign. * Prostatomegaly with large postvoid residual of 127 mL. Assessment & Plan Assessment & Plan Orders: Orders AMB Urinalysis Automated Today Z13.9 - Encounter for screening, unspecified Medications: New solifenacin (Vesicare) 10 mg PO DAILY 30 tabs 4RF Coding
== END 2024-10-17 11:19 | disposition home or self-care (01) ==
LOC: HO.HUSH 10:00
PROVIDERS: PCP Internal Medicine; Visit Provider Urology
DX: Z13.9 Encounter for screening, unspecified (principal)

== ENCOUNTER → 2024-10-17 09:59 | Outpatient (BNVA) | payer OTHER, SELFPAY | PROVIDERS: PCP Internal Medicine; Visit Provider Urology | DX: R10.9 Unspecified abdominal pain (principal); R31.9 Hematuria, unspecified; Z79.899 Other long term (current) drug therapy; Z87.442 Personal history of urinary calculi | CPT/HCPCS: 81003 ==

== ENCOUNTER 2024-12-03 13:42 | Outpatient (AMB) | payer OTHER, SELFPAY ==
--- NOTE | 2024-12-03 13:42 | MHC.OFFVIS ---
Intake Visit Reasons: 7w follow up Intake Note: Patient is presents via telehealth for a 7 week follow up Urology Med: Tamsulosin Antibiotic Allergy: None Blood Thinner: None Accompanied by: Self / Same As Patient Allergies No Known Allergies Allergy (Verified 01/12/25 08:18) HPI Comments Details: 12/03/24--vesicare helping a little right flank pressure since procedure, not requiring pain medication will check a renal US 10/17/24 --The patient is a 59-year-old male presenting with nephrolithiasis management and symptom assessment. Following his right ESWL procedure on 09/03/2024, he reported experiencing hematuria of a cranberry juice consistency for a week. There is now noted discomfort rather than pain on the right side. Ultrasound on 10/08/2024 demonstrated a potential residual stone fragment. His medical history is significant for benign prostatic hyperplasia with symptoms including nocturia and urinary urgency, which contribute to his lower urinary tract symptoms. PSA levels have been regularly monitored. Results - Renal ultrasound on 10/08/2024: Possible residual stone fragment in the lower calyx of the right kidney. - Prior 24-hour urine test (July): Low urine volume, normal calcium, oxalate, and sodium excretion. [facility] Medical History (Updated 02/04/25 @ 08:04 by Alexandrea Cramer MD) Kidney stones Screening PSA (prostate specific antigen) CLL (chronic lymphocytic leukemia) Ascending aorta dilatation Asthmatic bronchitis BPH (benign prostatic hyperplasia) Leucocytosis Mass of left side of neck Frequency of micturition Renal calculus, right Peripheral vascular disease Thrombocytopenia Obesity (BMI 30-39.9) Right shoulder pain Surgical History History of bone marrow biopsy Hx of colonoscopy History of lumbar surgery Hx of tonsillectomy Family History Mother Dementia Father Parkinson disease Prostate cancer Brother No problems noted. Brother Rectal cancer Sister No problems noted. Daughter No problems noted. Son No problems noted. Social History Household Members: Spouse Housing: House Alcohol intake: never Patient Tobacco Use Status: Never used Tobacco Tobacco use type: Cigarette e-Cigarette/Vaping Use: Never Used Second Hand Smoke Exposure: No service: No Current occupational status: employed Current occupation: auto, referee, rock climbing, rt hand Cognitive needs: No Hearing needs: No Vision needs: Yes Review of Systems Const All systems reviewed & are unremarkable except as noted in HPI and below Reports no additional complaints Eyes Reports no additional complaints ENT Reports no additional complaints Card Reports no additional complaints Resp Reports no additional complaints GI Reports no additional complaints Reports as per HPI Musc Reports no additional complaints Skin/Breast Reports system reviewed and no additional complaints, except as documented Neuro Reports no additional complaints Psych Reports no additional complaints Endo Reports no additional complaints Kody/Lymph Reports no additional complaints Aller/Immun Reports no additional complaints Telehealth Telehealth Telehealth Platform: Telephone Location of provider rendering services: practice address Location of patient: address on file Patient Identification confirmed using: Name, : Yes Telehealth method: voice only Patient verbally consented to treatment: Yes Patient verbally consented to billing insurance company: Yes Patient informed of any privacy concerns related to visit: Yes Minutes spent on Phone/Video with Pt.: 13 Assessment & Plan Assessment & Plan (1) Kidney stones: Code(s): N20.0 - Calculus of kidney Category: Medical (2) Flank pain: Code(s): R10.9 - Unspecified abdominal pain Category: Medical (3) Urinary urgency: Code(s): R39.15 - Urgency of urination Category: Medical Plan renal US Patient Instructions: The patient had an opportunity to ask questions regarding treatment plan. The patient expressed understanding and agreement with the above treatment plan. The patient is aware they should contact our office by phone for worsening of their current condition or the appearance of new symptoms. Compliance is encouraged with any medications and followup testing that is ordered. It is a privilege to be allowed the opportunity to participate in the urologic care of your patient. If you have any questions or concerns regarding treatment for the above conditions please do not hesitate to contact me. The office telephone contact is [phone]. This note is constructed in part using voice recognition software. While every effort has been made to ensure accuracy press set up errors may have been included. Yours sincerely, Alexandrea Cramer MD Coding Level of Care Code Tele Est Pt Level 3 (03883) Diagnoses Kidney stones N20.0 Flank pain R10.9 Urinary urgency R39.15
== END 2024-12-03 14:55 | disposition home or self-care (01) ==
LOC: HO.HUSH 13:42
PROVIDERS: PCP Internal Medicine; Visit Provider Urology
DX: N20.0 Calculus of kidney (principal); R10.9 Unspecified abdominal pain; R39.15 Urgency of urination
CPT/HCPCS: 98012

== ENCOUNTER → 2024-12-03 13:42 | Outpatient (BNVA) | payer OTHER, SELFPAY | PROVIDERS: PCP Internal Medicine; Visit Provider Urology ==

== ENCOUNTER 2024-12-08 08:59 | Outpatient (REF) | payer OTHER, SELFPAY | END 2024-12-08 09:00 | disposition home or self-care (01) | LOC: HO.HOSX 08:59 | PROVIDERS: Visit Provider Physician Assistant | DX: Z13.89 Encounter for screening for other disorder (principal) ==

== ENCOUNTER 2024-12-17 14:15 | Outpatient (REF) | payer BC, SELFPAY ==
--- NOTE | ~2024-12-17 | US_ITS ---
CLINICAL HISTORY: R10.9 - Unspecified abdominal pain US renal with Color Doppler Comparison: None Findings: Right kidney normal size and echotexture, 12.7 cm length. No hydronephrosis. Normal color flow. Benign renal cortical cyst lower pole measuring 14 x 12 x 18 mm. Nonobstructing caliceal stone lower pole measuring 3 x 3 x 2 mm. Left kidney normal size and echotexture, 11.9 cm length. No hydronephrosis or nephrolithiasis. Normal color flow. Probable 9 renal cortical cyst midpole measuring 9 x 8 x 10 mm and upper pole measuring 12 x 11 x 14 mm. Impression: 1. Nephrolithiasis on the right without evidence of obstructive uropathy. Bilateral renal cortical cysts. This document has been electronically signed by: Price Tang MD on 12/18/2024 09:13:22
== END 2024-12-17 14:16 | disposition home or self-care (01) ==
LOC: HO.HMGCX 14:15
PROVIDERS: PCP Internal Medicine; Visit Provider Urology
DX: R10.9 Unspecified abdominal pain (principal)
CPT/HCPCS: 76775

== ENCOUNTER → 2024-12-17 14:22 | Outpatient (BNV) | payer BC, SELFPAY | PROVIDERS: PCP Internal Medicine; Visit Provider Radiology Diagnostic Radiology | DX: N20.0 Calculus of kidney (principal) | CPT/HCPCS: 76775 ==

== ENCOUNTER 2025-01-01 10:40 | Outpatient (AMB) | payer BC, SELFPAY ==
--- NOTE | 2025-01-01 10:40 | A.OFFVIS_ITS ---
Intake Visit Reasons: 4w/US Intake Note: Patient is presents via telehealth for a 4w/US * Renal US 12/18 Urology Med: Tamsulosin Antibiotic Allergy: None Blood Thinner: None Accompanied by: Self / Same As Patient Allergies No Known Allergies Allergy (Verified 01/01/25 10:41) HPI Comments Details: 01/01/25-- History of Present Illness - The patient is a 59-year-old male presenting with right flank discomfort following a kidney procedure. - The discomfort began after a procedure conducted on September 03, but is improving. - The ultrasound indicated no obstruction, small right kidney stone, - The patient reports a decrease in discomfort. - The patient has been advised to use Tylenol as needed for pain management. - The patient was reassured about the health of the kidneys, with no significant issues noted apart from the small stone fragment. Results - Ultrasound: 3-mm stone in the right kidney, no obstruction noted. 12/03/24--vesicare helping a little right flank pressure since procedure, not requiring pain medication will check a renal US 10/17/24 --The patient is a 59-year-old male presenting with nephrolithiasis management and symptom assessment. Following his right ESWL procedure on 09/03/2024, he reported experiencing hematuria of a cranberry juice consistency for a week. There is now noted discomfort rather than pain on the right side. Ultrasound on 10/08/2024 demonstrated a potential residual stone fragment. His medical history is significant for benign prostatic hyperplasia with symptoms including nocturia and urinary urgency, which contribute to his lower urinary tract symptoms. PSA levels have been regularly monitored. Results - Renal ultrasound on 10/08/2024: Possible residual stone fragment in the lower calyx of the right kidney. - Prior 24-hour urine test (July): Low urine volume, normal calcium, oxalate, and sodium excretion. 08/29/24--Here for office cystoscopy: Mitchel is a 59-year-old male presenting with Benign Prostatic Hyperplasia (BPH). He has a known history of nephrolithiasis, with the largest kidney stone measuring 8 mm located in the right lower pole identified on a renal ultrasound dated May 05, 2024. The patient has been previously managed with tamsulosin and Avodart for BPH, which have provided variable symptomatic relief. He reports nocturia with inconsistent frequency and variable urine flow. Currently, a shock wave lithotripsy is scheduled for the right kidney stone, and there are discussions regarding possible prostate laser treatment to alleviate urinary symptoms if current management remains inadequate post-procedure. No past history of nicotine use or substance abuse. Urinary Symptoms Review - Variable urine flow with medication (tamsulosin and Avodart) - Nocturia, two to four times on some nights - Intermittent urine flow inconsistency - No reported pain during urination Results - Imaging: Renal ultrasound on 05/05/24 noted an 8 mm kidney stone in the right kidney lower pole. - Procedure: 08/29/24--Office Cystoscopy revealed bladder wall thickening, enlarged prostate, bilobar enlargement, prominent median lobe. 07/17/24--Mitchel is a 59-year-old male who presents to the office for FU for evaluation of BPH and kidney stones. FH father had prostate cancer. Review renal US results, bilateral kidney stones, largest right kidney 8 mm right kidney lower pole. Discussed risks to include but not limited to, blood in the urine, bruising to the skin, kidney hematoma, possible need for another procedure if a stone fragment obstructs the ureter while passing, possible need to repeat procedure if stone is not completely fragmented. Office cysto. Cont tamsulosin. Start avodart. PSA--03/18/24--3.26 ng/mL Renal US--- 05/05/24--RIGHT KIDNEY: 0.8 cm lower pole calculus. 1.8 cm lower pole cyst with benign features, no indication for followup imaging. LEFT KIDNEY: Small mid and lower pole cortical calcifications. 1.2 cm midpole cyst with peripheral calcification, almost certainly benign. PROSTATE GLAND: The prostate gland is enlarged with a volume of 54.1 mL. Prostate gland appears lobulated with masslike projection into the bladder, possibly related to prostate gland, although bladder wall mass could also be considered. 07/16/23--Mitchel states he is using the tamsulosin, I have reviewed the 24 hr urine results with him. Discussed 24 hour urine results: Total volume 0.72 L, Calcium 102 mg; Oxalate 23 mg, Sodium 66, Citrate 665 mg. Instructed on importance of fluid intake, Low oxalate diet, low sodium diet. followed by hematology-oncology ---recently diagnosed with leukemia. pt states has passed kidney stones in the past. states his father had history of prostate cancer. States that his brother also had history of cancer and underwent colostomy but is not sure about the type of cancer Results: PSA results reviewed--10/10/22-- 2.53. Renal US results reviewed--10/19/22-- Left renal cysts measuring up to 1.9 cm. Bilateral nonobstructing kidney stones, Prostatomegaly with PVR--127 mL. 12/18/22 prostate exam-- Mild to moderately enlarged, irregular, no suspicious nodules palpated. AUA symptom score: 15. [facility] Medical History (Updated 01/02/25 @ 18:51 by Alexandrea Cramer MD) Kidney stones Screening PSA (prostate specific antigen) CLL (chronic lymphocytic leukemia) Ascending aorta dilatation Asthmatic bronchitis BPH (benign prostatic hyperplasia) Leucocytosis Mass of left side of neck Frequency of micturition Renal calculus, right Peripheral vascular disease Thrombocytopenia Obesity (BMI 30-39.9) Right shoulder pain Surgical History History of bone marrow biopsy Hx of colonoscopy History of lumbar surgery Hx of tonsillectomy Family History Mother Dementia Father Parkinson disease Prostate cancer Brother No problems noted. Brother Rectal cancer Sister No problems noted. Daughter No problems noted. Son No problems noted. Social History Household Members: Spouse Housing: House Alcohol intake: never Patient Tobacco Use Status: Never used Tobacco Tobacco use type: Cigarette e-Cigarette/Vaping Use: Never Used Second Hand Smoke Exposure: No service: No Current occupational status: employed Current occupation: auto, referee, rock climbing, rt hand Cognitive needs: No Hearing needs: No Vision needs: Yes Review of Systems Const All systems reviewed & are unremarkable except as noted in HPI and below Reports no additional complaints Eyes Reports no additional complaints ENT Reports no additional complaints Card Reports no additional complaints Resp Reports no additional complaints GI Reports no additional complaints Reports as per HPI Musc Reports no additional complaints Skin/Breast Reports system reviewed and no additional complaints, except as documented Neuro Reports no additional complaints Psych Reports no additional complaints Endo Reports no additional complaints Kody/Lymph Reports no additional complaints Aller/Immun Reports no additional complaints Telehealth Telehealth Telehealth Platform: Telephone Location of provider rendering services: practice address Location of patient: address on file Patient Identification confirmed using: Name, : Yes Telehealth method: voice only Patient verbally consented to treatment: Yes Patient verbally consented to billing insurance company: Yes Patient informed of any privacy concerns related to visit: Yes Minutes spent on Phone/Video with Pt.: 13 Results Reviewed Results Reviewed: Date of Service: 12/17/24 CLINICAL HISTORY: R10.9 - Unspecified abdominal pain US renal with Color Doppler Comparison: None Findings: Right kidney normal size and echotexture, 12.7 cm length. No hydronephrosis. Normal color flow. Benign renal cortical cyst lower pole measuring 14 x 12 x 18 mm. Nonobstructing caliceal stone lower pole measuring 3 x 3 x 2 mm. Left kidney normal size and echotexture, 11.9 cm length. No hydronephrosis or nephrolithiasis. Normal color flow. Probable 9 renal cortical cyst midpole measuring 9 x 8 x 10 mm and upper pole measuring 12 x 11 x 14 mm. Impression: 1. Nephrolithiasis on the right without evidence of obstructive uropathy. Bilateral renal cortical cysts. Date of Service: 10/07/24 CLINICAL HISTORY: N20.0 - Calculus of kidney US Renal Comparison: None Findings: Right kidney normal size and echotexture, 12.4 cm length. 7 mm calculus is seen in the lower pole. A 1.5 cm cyst is also seen in the lower pole. Left kidney normal size and echotexture, 12.2 cm length. No definitive calculi although there are several small echogenic foci without shadowing. Cysts are seen in the mid and upper poles measuring 0.9 and 1.6 cm in greatest dimension respectively. No hydronephrosis of either kidney. Normal color Doppler IMPRESSION: 1. Discrete right lower pole calculus measuring 7 mm. 2. Multiple small echogenic foci are seen bilaterally possibly nonobstructing calculi. 3. Small bilateral renal cysts. Date of Service: 05/05/24 US RETROPERITONEAL COMPLETE (RENAL) CLINICAL INFORMATION: Bilateral renal stones. COMPARISON: CT abdomen and pelvis 03/24/2024. Ultrasound kidneys and bladder 10/19/2022. TECHNIQUE: Real-time imaging of the kidneys and bladder. Limited visualization due to bowel gas. FINDINGS: RIGHT KIDNEY: 12.2 x 5.8 x 6.4 cm (SAG x AP x TRV). No hydronephrosis. Right renal 0.8 cm lower pole calculus. Small lower pole cortical calcification. 1.8 cm lower pole cyst with benign features. There is no indication for followup imaging. LEFT KIDNEY: 13.1 x 6.7 x 5.9 cm (SAG x AP x TRV). No hydronephrosis. Small mid and lower pole cortical calcifications. Renal cortical thickness is normal. Limited visualization. 1.2 cm midpole cyst with peripheral calcification, almost certainly benign. BLADDER: Partially distended. Bilateral ureteral jets are demonstrated. Prevoid bladder volume is 124.0 mL. Postvoid bladder volume is 21.2 mL. PROSTATE GLAND: The prostate gland is enlarged with a volume of 54.1 mL. Prostate gland appears lobulated with masslike projection into the bladder, possibly related to prostate gland, although bladder wall mass could also be considered. IMPRESSION: 1. Bilateral renal calcifications, as detailed above. No hydronephrosis. 2. Prostate gland appears lobulated with masslike projection into the bladder, possibly related to prostate gland, although bladder wall mass could also be considered. Date of Service: 10/19/22 EXAMINATION: US RETROPERITONEAL COMPLETE (RENAL) CLINICAL INFORMATION: Calculus of kidney. COMPARISON: None available. TECHNIQUE: Real-time imaging of the kidneys and bladder. FINDINGS: RIGHT KIDNEY: 11.5 x 7.0 x 5.9 cm (SAG x AP x TRV). The kidney is normal in size, contour, and echogenicity. Renal cortical thickness is normal. No hydronephrosis. 1.7 cm benign-appearing cyst. Lower pole 2 mm nonobstructing stone. LEFT KIDNEY: 12.2 x 6.9 x 5.8 cm (SAG x AP x TRV). The kidney is normal in size, contour, and echogenicity. Renal cortical thickness is normal. No hydronephrosis. Nonobstructing stones measuring up to 4 mm. Cysts with peripheral calcifications measuring up to 1.9 cm, almost certainly benign. BLADDER: Well distended and normal. Bilateral ureteral jets are demonstrated. Prevoid bladder volume is 209 mL. Postvoid bladder volume is 127 mL. ADDITIONAL FINDINGS: Prostate is markedly enlarged measuring approximately 38 mL. IMPRESSION: * Bilateral nonobstructing nephrolithiasis. * Left renal cysts with peripheral calcifications measuring up to 1.9 cm, almost certainly benign. * Prostatomegaly with large postvoid residual of 127 mL. Assessment & Plan Assessment & Plan (1) Screening PSA (prostate specific antigen): Code(s): Z12.5 - Encounter for screening for malignant neoplasm of prostate Category: Medical (2) Kidney stones: Code(s): N20.0 - Calculus of kidney Category: Medical Plan Cont to monitor kidney stone, PSA screening Orders: Orders PSA,Total (Free>4and<10) 9 Months Z12.5 - Encounter for screening for malignant neoplasm of prostate US renal BI 8 Months N20.0 - Calculus of kidney Patient Instructions: The patient had an opportunity to ask questions regarding treatment plan. The patient expressed understanding and agreement with the above treatment plan. The patient is aware they should contact our office by phone for worsening of their current condition or the appearance of new symptoms. Compliance is encouraged with any medications and followup testing that is ordered. It is a privilege to be allowed the opportunity to participate in the urologic care of your patient. If you have any questions or concerns regarding treatment for the above conditions please do not hesitate to contact me. The office telephone contact is [phone]. This note is constructed in part using voice recognition software. While every effort has been made to ensure accuracy statistical financial analyst errors may have been included. Yours sincerely, Alexandrea Cramer MD Scribe Plan - Not visible on output: Patient was informed and verbally consented to the use of an ambient scribe for clinic note documentation during this visit. Coding Level of Care Code Tele Est Pt Level 3 (32724) Diagnoses Screening PSA (prostate specific antigen) Z12.5 Kidney stones N20.0
== END 2025-01-01 15:47 | disposition home or self-care (01) ==
LOC: HO.HUSH 10:40
PROVIDERS: PCP Internal Medicine; Visit Provider Urology
DX: Z12.5 Encounter for screening for malignant neoplasm of prostate (principal); N20.0 Calculus of kidney
CPT/HCPCS: 99213

== ENCOUNTER 2025-01-29 14:38 | Outpatient (REF) | payer BC, SELFPAY ==
--- NOTE | ~2025-01-29 | CT_ITS ---
EXAMINATION: CT ABDOMEN AND PELVIS WITH CONTRAST CLINICAL INFORMATION: Rt flank pain, CLL, abdominal adenopathy COMPARISON: 03/24/2024 TECHNIQUE: Multidetector volumetric images were obtained from the superior aspect of the liver through the pubic symphysis following administration 85 mL of Omnipaque 350 intravenous contrast. Sagittal and coronal reformatted images were obtained on the technologist's workstation. Oral contrast: Present This CT examination was performed using dose optimization techniques as appropriate, variously including the following: *Automated exposure control *Adjustment of mA and/or kV according to patient size (this includes techniques or standardized protocols for targeted exams where dose is matched to indication/reason for exam; i.e. extremities or head) *Use of iterative reconstruction technique DLP: 869 mGY*cm FINDINGS: LIVER, GALLBLADDER, AND BILIARY TREE: The liver is normal in size, shape, and attenuation. No focal hepatic lesion or biliary ductal dilatation is present. The gallbladder is unremarkable with no evidence of radiopaque gallstones, gallbladder wall thickening, or obvious pericholecystic inflammatory changes. PANCREAS: Unremarkable. SPLEEN: Unremarkable. ADRENAL GLANDS: Unremarkable. KIDNEYS AND URETERS: Again seen are bilateral simple renal cysts. There is a cyst that is partially exophytic located in the anterior lower pole right kidney with 2 mm dorsal peripheral calcification that is unchanged. BLADDER: Unremarkable. GASTROINTESTINAL TRACT: The small and large bowel are unremarkable. The appendix is unremarkable. ABDOMINAL WALL: Small left inguinal hernia contains adipose tissue, unchanged. LYMPH NODES: Normal. VASCULAR: Minimal vascular calcification is present PELVIC VISCERA: Prostate is lobulated contour and is mildly enlarged. OSSEOUS STRUCTURES: Stable degenerative disc disease is present at L5-S1. There is a chronic nonaggressive cystic-appearing lesion in the anterior left femoral head neck junction possibly related to femoral acetabular impingement. CT/CT abdomen pelvis w IV con IMPRESSION: No acute abnormality. Bosniak IIF right renal cyst. Stable mildly complicated right renal cyst with 2 mm focal wall calcification. Consider one-year follow-up CT abdomen. Electronically signed by: Kwabena Christiansen MD 01/29/2025 03:47 PM EDT
--- NOTE | ~2025-01-29 | CT_ITS ---
EXAMINATION: CT CHEST WITH CONTRAST CLINICAL INFORMATION: Follow up lung infiltrate, history of chronic lymphocytic leukemia DLP: 229 mGY*cm COMPARISON: X-ray July 14, [address] 03/24/2024 and January 29, 2023 TECHNIQUE: Multidetector volumetric CT imaging of the chest was obtained after the administration of 50 mL of Omnipaque 350 intravenous contrast without immediate adverse reactions. Axial MIP volume rendering provided. Sagittal and coronal reformatted images were obtained. This CT examination was performed using dose optimization techniques as appropriate, variously including the following: *Automated exposure control *Adjustment of mA and/or kV according to patient size (this includes techniques or standardized protocols for targeted exams where dose is matched to indication/reason for exam; i.e. extremities or head) *Use of iterative reconstruction technique FINDINGS: LUNGS: There is minimal linear scarring or atelectasis in the posterior medial base, in the region where there was previously an acute pneumonia. The lungs are clear otherwise. MEDIASTINUM: The mediastinum is normal. PLEURA: Trace right pleural effusion has resolved. AXILLA: No lymphadenopathy. OSSEOUS STRUCTURES: There is a vague groundglass density lesion in the anterior right first rib that is unchanged over [address]/CT chest w IV con IMPRESSION: No acute disease. Minimal residual linear scarring in the posterior basal right lower lobe where there was previously a pneumonia. Groundglass density in the anterior right first rib is stable for 2 years. Fleischner guidelines were followed. Electronically signed by: Kwabena Christiansen MD 01/29/2025 03:36 PM EDT
[2025-01-29] MEDS: iohexoL 350 MG/ML 100 ML INFUS..BTL IV (15:27)
== END 2025-01-29 14:39 | disposition home or self-care (01) ==
LOC: HO.CT 14:38
PROVIDERS: PCP Internal Medicine; Visit Provider Internal Medicine Medical Oncology
DX: R91.8 Other nonspecific abnormal finding of lung field (principal); R10.9 Unspecified abdominal pain
CPT/HCPCS: 71260; 74177; Q9967

== ENCOUNTER → 2025-01-29 14:40 | Outpatient (BNV) | payer BC, SELFPAY | PROVIDERS: PCP Internal Medicine; Visit Provider Radiology Diagnostic Radiology | DX: N28.1 Cyst of kidney, acquired (principal); J98.11 Atelectasis | CPT/HCPCS: 71260; 74177 ==

== ENCOUNTER 2025-03-24 08:46 | Outpatient (AMB) | payer BC, SELFPAY ==
[2025-03-24 08:56] VITALS: BP 144/76; PULSE 69; O2SAT 97; BMI 31.1
--- NOTE | 2025-03-24 08:56 | MHC.PC.OV ---
Vital Signs 03/24/25 08:56 03/24/25 09:32 Height 6 ft 3 in Weight 249 lb BMI 31.1 BP 144/76 H 130/70 Blood Pressure Location Lt brachial Lt brachial Position Sitting Sitting Pulse 69 Pulse Source Pulse Oximeter Pulse Oximetry (%) 97 Oxygen Delivery Method Room Air Intake Visit Reasons: Annual Exam Allergies No Known Allergies Allergy (Verified 03/24/25 08:56) Medication List - Last Reconciled 03/24/25 by Mylene Mari MD acalabrutinib maleate (Calquence (acalabrutinib maleate)) 100 mg PO Q12H barium sulfate 2%(w/v) (Readi-Cat 2) 450 mL PO USEASDIRECTD blood pressure monitor (Blood Pressure Kit) As directed [Calquence 100 mg PO BID] dutasteride (Avodart) 0.5 mg PO DAILY 90 days solifenacin (Vesicare) 10 mg PO DAILY tamsulosin 0.4 mg PO BEDTIME 90 days Tobacco use date assessed: 07/04/24 Dental Screening Dental Screen Date: 03/24/25 Did you have a dental visit in the last 12 months?: Yes Did you have a dental problem in the last 6 months where you did not have access to dental care?: No Was dental information given to patient?: Patient has dentist HPI Annual Exam HPI Details sob/tired [facility] Medical History (Updated 03/24/25 @ 09:45 by Mylene Mari MD) Kidney stones Screening PSA (prostate specific antigen) CLL (chronic lymphocytic leukemia) Ascending aorta dilatation Asthmatic bronchitis BPH (benign prostatic hyperplasia) Leucocytosis Mass of left side of neck Frequency of micturition Renal calculus, right Peripheral vascular disease Thrombocytopenia Obesity (BMI 30-39.9) Right shoulder pain Surgical History History of bone marrow biopsy Hx of colonoscopy History of lumbar surgery Hx of tonsillectomy Family History Mother Dementia Father Parkinson disease Prostate cancer Brother No problems noted. Brother Rectal cancer Sister No problems noted. Daughter No problems noted. Son No problems noted. Social History Household Members: Spouse Housing: House Alcohol intake: never Patient Tobacco Use Status: Never used Tobacco Tobacco use type: Cigarette e-Cigarette/Vaping Use: Never Used Second Hand Smoke Exposure: No service: No Current occupational status: employed Current occupation: auto, referee, rock climbing, rt hand Cognitive needs: No Hearing needs: No Vision needs: Yes Questionnaire PHQ-9 Over the last 2 weeks, how often have you been bothered by any of the following problems? 1. Little interest or pleasure in doing things: not at all 2. Feeling down, depressed, or hopeless: not at all 3. Trouble falling or staying asleep, or sleeping too much: not at all 4. Feeling tired or having little energy: not at all 5. Poor appetite or overeating: not at all 6. Feeling bad about yourself - or that you are a failure or have let yourself or your family down: not at all 7. Trouble concentrating on things, such as reading the newspaper or watching television: not at all 8. Moving or speaking so slowly that other people could have noticed. Or the opposite - being so fidgety or restless that you have been moving around a lot more than usual: not at all 9. Thoughts that you would be better off or of hurting yourself in some way: not at all Total score: 0 Depression Screening Interpretation: Negative Depression Screening Done: Yes Source: Developed by Drs. Jacobo Welch, Tiana Mojica, Robin Yang and colleagues, with an educational traci from [employer]. Thrive Questionnaire Date Thrive assessed: 03/23/25 I am a: Patient What is your living situation today?: I have a steady place to live Within the past 12 months, did the food you bought not last and you didn't have the money to get more?: Never true Within the past 12 months, did you worry whether your food would run out before you got money to buy more?: Never true Do you have trouble paying for medicines?: No Do you have trouble getting transportation to medical appointments?: No Do you have trouble paying your heating and electricity bill?: No Do you have trouble taking care of your child, family member or friend?: No Do you have trouble with day-to-day activities such as bathing, preparing meals, shopping, managing finances, etc.?: No Are you currently unemployed and looking for a job?: No Are you interested in more education?: No Please select the resources that you would like help with: None Currently or been in a relationship where the following occur: No concerns reported THRIVE Score: 0 AUDIT C Alcohol Use Questionnaire (AUDIT-C) 1. How often do you have a drink containing alcohol?: Never 3. How often do you have six or more drinks on one occasion?: Never Total Score: 0 HELENE-7 AMB Questionnaire HELENE-7 Date HELENE - 7 assessed: 03/24/25 Feeling nervous, anxious, or on edge: 0 = Not at all Not being able to stop or control worryin = Not at all Worrying too much about different things: 0 = Not at all Trouble relaxin = Not at all Being so restless that it is hard to sit still: 0 = Not at all Becoming easily annoyed or irritable: 0 = Not at all Feeling afraid as if something awful might happen: 0 = Not at all Total HELENE-7 score (0-4 normal; 5-9 mild; 10-14 moderate; 15-21 severe): 0 Source: Developed by Drs. Jacobo Welch, Tiana Mojica, Robin Yang and colleagues, with an educational traci from [employer]. HELENE-7 Assessment Billing HELENE-7 Assessment Tool: HELENE-7 Assessment 68383 Review of Systems Const Denies poor appetite and Denies weakness Eyes Denies no additional complaints ENT Reports Normal hearing present, Denies dizziness, Denies nasal congestion, Denies tinnitus and Denies sore throat Card Denies chest pain, Denies syncope, Denies rapid heart rate and Denies dyspnea Resp Denies cough and Denies dyspnea GI Denies change in stool character, Reports constipation, Denies diarrhea, Denies nausea and Denies vomiting Denies dysuria and Denies urinary frequency Neuro Reports Normal hearing present, Denies confusion, Denies dizziness, Denies syncope and Denies weakness Psych Denies confusion Physical exam (Primary Care) Vital Signs: Last Vital Signs Pulse 69 03/24/25 08:56 BP 130/70 03/24/25 09:32 Pulse Ox 97 03/24/25 08:56 Oxygen Delivery Method Room Air 03/24/25 08:56 BMI result Body Mass Index 31.1 Tobacco/Smoking Status: Tobacco use Status Tobacco use date assessed 07/04/24 03/24/25 09:01 Patient Tobacco Use Status Never used Tobacco 03/24/25 09:01 Tobacco use type Cigarette 03/24/25 09:01 e-Cigarette/Vaping Use Never Used 03/24/25 09:01 PHQ-9: PHQ-9 Score PHQ-9: Total score 0 03/24/25 09:29 Depression Screening Interpretation: Negative Thrive Assessment: Date of Thrive Assessment Date Thrive assessed 03/23/25 03/24/25 09:01 Currently or been in a relationship where the following occur: No concerns reported Const General: No confusion Orientation/consciousness: No confusion HENMT Other: pedal pulse weak but equal rectal exam negative Head: Yes normocephalic Ears: external ears normal and TM's normal bilaterally Face and sinus: Yes normal facial exam Mouth: moist mucous membranes Throat: Yes tonsils normal Eyes Conjunctivae: conjunctivae normal Pupils: Equal, round and reactive pupils present and Pupil accommodation reflex normal Direct Ophthalmoscopy: normal light reflex Neck Neck: No lymphadenopathy Thyroid: Thyroid normal Chest Chest palpation & inspection: normal inspection of the chest Resp Effort & Inspection: normal respiratory effort and no audible wheezes Auscultation: clear to auscultation bilaterally, no crackles, no wheezes and lung sounds not diminished Cardio Rate: regular rate Rhythm: regular rhythm Peripheral pulses: radial pulses present and dorsalis pedis present GI Palpation (GI): no masses Auscultation: normal bowel sounds and normoactive bowel sounds Rectal Exam - Male: Yes deferred Skin General skin exam: no rashes or lesions noted Rashes: no rashes Neuro General: No confusion Cranial nerves: Yes Equal, round and reactive pupils present and Yes Normal hearing present Cognition (Neuro): normal cognition Gait exam (Neuro): Normal gait present Motor exam (neuro): 5/5 motor strength present throughout Deep tendon reflexes (DTR's): Right brachioradialis reflex intensity grade: 2+, Left brachioradialis reflex intensity grade: 2+, Right patellar reflex intensity grade: 2+ and Left patellar reflex intensity grade: 2+ Extrem General: No edema Coding Level of Care Code Est Pt Prev Care 40-64y(10800) Diagnoses Annual physical exam Z00.00 CLL (chronic lymphocytic leukemia) C91.10 BPH loc w urin obs/LUTS N40.1 Kidney stones N20.0 Obesity (BMI 30.0-34.9) E66.9 Hearing difficulty H91.90 Hypersomnia G47.10 Additional Codes HELENE-7 Assessment Billing - HELENE-7 Assessment Tool: HELENE-7 Assessment [id number] ([id number]) Assessment & Plan Assessment & Plan (1) Annual physical exam: Code(s): Z00.00 - Encounter for general adult medical examination without abnormal findings Category: Medical Plan: Patient is advised to eat healthy, keep well hydrated, keep active and have adequate sleep. (2) CLL (chronic lymphocytic leukemia): Comment: December 2022 Code(s): C91.10 - Chronic lymphocytic leukemia of B-cell type not having achieved remission Category: Medical Plan: Continue to follow-up with Hematology-Oncology on treatment (3) BPH loc w urin obs/LUTS: Code(s): N40.1 - Benign prostatic hyperplasia with lower urinary tract symptoms Category: Medical Plan: Continue with tamsulosin and solifenacin and Avodart patient is being followed up by Urology (4) Kidney stones: Code(s): N20.0 - Calculus of kidney Category: Medical Plan: Keep well hydrated (5) Obesity (BMI 30.0-34.9): Code(s): E66.9 - Obesity, unspecified Category: Medical Plan: Diet and exercise (6) Hearing difficulty: Code(s): H91.90 - Unspecified hearing loss, unspecified ear Category: Medical (7) Hypersomnia: Code(s): G47.10 - Hypersomnia, unspecified Category: Medical Plan History of Present Illness The patient is a 60-year-old male presenting for a physical exam and follow-up on chronic conditions. The patient has a history of nephrolithiasis and benign prostatic hyperplasia (BPH). He continues to follow up with urology and is on medications including tamsulosin, solifenacin, and avodart for BPH management. The patient has chronic lymphocytic leukemia (CLL), which is currently inactive. He follows up with hematology oncology and is on acalabrutinib for treatment. In September 2022, the patient had a colonoscopy revealing a tubular adenoma of the colon. He is up to date with his colon cancer screenings. The patient has a history of ascending aortic dilatation diagnosed in October 2023. The patient reports left shoulder pain diagnosed as osteoarthritis. He has undergone physical therapy, which provided limited relief. A CT scan of the abdomen and pelvis in December 2024 showed a complex right renal cyst, with a follow-up CT advised in one year. The patient's blood work from January 12 showed normal blood count, mildly elevated potassium, and mildly elevated blood sugar. Health Maintenance - Colonoscopy in September 2022 showed tubular adenoma, follow-up as per guidelines - Follow-up CT advised for complex right renal cyst in one year - Blood work monitoring for potassium and blood sugar levels - Vaccinations: Up to date with shingles, tetanus, and pneumonia vaccines - Advised to get flu shot in April Social History - Family history: Father with prostate cancer, brother with rectal cancer - Lifestyle: Does not consume alcohol, smoke, or use recreational drugs - Exercise: Engages in physical therapy for shoulder osteoarthritis Review of Systems - General: Reports feeling more tired by the end of the day - Cardiovascular: Denies chest pain, orthopnea, or syncope - Respiratory: Denies dyspnea on exertion, cough, or wheezing - Gastrointestinal: Denies nausea, vomiting, or changes in bowel habits - Genitourinary: Reports nocturia 1-2 times per night, improved from before - Musculoskeletal: Reports left shoulder discomfort with full range of motion - Neurological: Denies dizziness or balance issues Physical Exam General: Cooperative, healthy appearing, comfortable, no acute distress and well developed Orientation: Patient oriented x3 Limitations: No limitations Head: Normal to inspection Ears: Hearing grossly normal bilaterally, but patient mentioned suggests a hearing test Nose: Normal external nose present Face and sinus: Normal facial exam Eyes: Appearance normal, both eyes and all related structures Neck: Normal visual inspection and Yes full ROM Respiratory: Normal respiratory effort and able to speak in complete sentences. Clear to auscultation bilaterally Cardiovascular: Regular rate and rhythm. Normal S1 and S2 GI: Normal to inspection. Soft to palpation and nontender Skin: No rashes or lesions noted Neuro: Patient oriented x3 Extremities: Normal to inspection, but patient reports left shoulder pain with a diagnosis of osteoarthritis, advised physical therapy. Full range of movement but discomfort present. Results - Labs: Normal blood count, mildly elevated potassium, mildly elevated blood sugar - Imaging: CT scan of abdomen and pelvis showed complex right renal cyst - Imaging: Chest X-ray normal Plan Patient was informed and verbally consented to the use of an ambient scribe for clinic note documentation during this visit. 1. Nephrolithiasis The patient continues to experience discomfort due to nephrolithiasis and is advised to maintain hydration and follow up with urology for ongoing management. 2. Benign Prostatic Hyperplasia (Bph) The patient is on tamsulosin, solifenacin, and avodart for BPH management and is advised to continue these medications and follow up with urology. 3. Chronic Lymphocytic Leukemia (Cll) The patient is currently on acalabrutinib for CLL, which is inactive, and continues to follow up with hematology oncology. 4. Tubular Adenoma Of The Colon The patient is up to date with colon cancer screenings following the detection of a tubular adenoma in September 2022. 5. Ascending Aortic Dilatation The patient is advised to continue monitoring the ascending aortic dilatation diagnosed in October 2023. 6. Osteoarthritis Of The Left Shoulder The patient has been diagnosed with osteoarthritis of the left shoulder and has undergone physical therapy with limited relief. 7. Complex Right Renal Cyst A follow-up CT is advised in one year for the complex right renal cyst identified in the recent imaging. Discussion Notes During the visit, we discussed the management of the patient's chronic conditions, including nephrolithiasis, BPH, and CLL. The importance of maintaining hydration and medication adherence was emphasized, along with the need for regular follow-ups with urology and hematology oncology. We also reviewed the patient's recent imaging and lab results, advising a follow-up CT for the renal cyst and continued monitoring of blood work. Patient Instructions - Continue taking prescribed medications for BPH and CLL. - Maintain adequate hydration to manage nephrolithiasis. - Schedule follow-up appointments with urology and hematology oncology. - Follow up with a CT scan for the renal cyst in one year. - Get a flu shot in April. Orders: Orders Comprehensive Met. Panel Today N40.1 - Benign prostatic hyperplasia with lower urinary tract symptoms Complete Blood Count Auto Diff Today N40.1 - Benign prostatic hyperplasia with lower urinary tract symptoms Lipid Panel Today E78.00 - Pure hypercholesterolemia, unspecified, N40.1 - Benign prostatic hyperplasia with lower urinary tract symptoms Prostate Specific Antigen Scr Today N40.1 - Benign prostatic hyperplasia with lower urinary tract symptoms Magnesium Today N40.1 - Benign prostatic hyperplasia with lower urinary tract symptoms Uric Acid Today N40.1 - Benign prostatic hyperplasia with lower urinary tract symptoms Free T4 (Free Thyroxine) Today N40.1 - Benign prostatic hyperplasia with lower urinary tract symptoms Thyroid Stimulating Hormone Today N40.1 - Benign prostatic hyperplasia with lower urinary tract symptoms Vitamin B12 and Folate Today N40.1 - Benign prostatic hyperplasia with lower urinary tract symptoms Referrals Speech and Hearing Referral H91.90 - Unspecified hearing loss, unspecified ear
[2025-03-24 09:32] VITALS: BP 130/70
== END 2025-03-24 13:23 | disposition home or self-care (01) ==
LOC: HO.HMCH 08:46
PROVIDERS: PCP Internal Medicine; Visit Provider Internal Medicine
DX: Z00.00 Encounter for general adult medical examination without abnormal findings (principal); C91.10 Chronic lymphocytic leukemia of B-cell type not having achieved remission; E66.9 Obesity, unspecified; Z68.31 Body mass index [BMI] 31.0-31.9, adult; N40.1 Benign prostatic hyperplasia with lower urinary tract symptoms; N20.0 Calculus of kidney; H91.90 Unspecified hearing loss, unspecified ear; G47.10 Hypersomnia, unspecified

== ENCOUNTER → 2025-03-24 08:46 | Outpatient (BNVA) | payer BC, SELFPAY | PROVIDERS: PCP Internal Medicine; Visit Provider Internal Medicine | DX: Z00.00 Encounter for general adult medical examination without abnormal findings (principal); C91.10 Chronic lymphocytic leukemia of B-cell type not having achieved remission; N40.1 Benign prostatic hyperplasia with lower urinary tract symptoms; N20.0 Calculus of kidney; H91.90 Unspecified hearing loss, unspecified ear; G47.10 Hypersomnia, unspecified; N28.1 Cyst of kidney, acquired; M19.012 Primary osteoarthritis, left shoulder; E78.00 Pure hypercholesterolemia, unspecified; E66.9 Obesity, unspecified; Z68.31 Body mass index [BMI] 31.0-31.9, adult | CPT/HCPCS: 96127 ==